=== PATIENT | male | born 1980 | race Caucasian/White ===

== ENCOUNTER 2017-03-27 11:47 | Inpatient (IN) | payer OTHER ==
[2017-03-27 12:37] VITALS: BMI 31.8
[2017-03-27] MEDS ORDERED: guaiFENesin/D-METHORPHAN HB 10 ML UNIT-DOSE CUPS PO PRN (14:54)
[2017-03-27] MEDS ORDERED: MAGNESIUM CITRATE 300 ML BOTTLE PO PRN (14:54)
[2017-03-27] MEDS ORDERED: diphenhydrAMINE HCL 50 MG CAPSULE PO PRN (14:54)
[2017-03-27] MEDS ORDERED: P-EPHED 60MG/TRIPROLIDI 2.5MG TABLET PO PRN (14:54)
[2017-03-27] MEDS ORDERED: NICOTINE POLACRILEX 2 MG GUM BC PRN (14:54)
[2017-03-27] MEDS ORDERED: MAGNESIUM HYDROX 2400MG/30ML ORAL SUSPENSION 30 ML CUP PO PRN (14:54)
[2017-03-27] MEDS ORDERED: MENTHOL/PHENOL 1 EACH UD MM PRN (14:54)
[2017-03-27] MEDS ORDERED: hydrOXYzine PAMOATE 50 MG CAPSULE (FP) PO PRN (14:54)
[2017-03-27] MEDS ORDERED: MAG HYDROX/AL HYDROX/SIMETH 30 ML UNIT-DOSE CUP PO PRN (14:54)
[2017-03-27] MEDS ORDERED: IBUPROFEN 400 MG TABLET (FP) PO PRN (14:54)
[2017-03-27] MEDS ORDERED: LOPERAMIDE HCL 2 MG CAPSULE PO PRN (14:54)
[2017-03-27] MEDS ORDERED: ACETAMINOPHEN 325 MG TABLET (FP) PO PRN (14:54)
[2017-03-27] MEDS ORDERED: diazePAM 5 MG TABLET PO ONE (14:54)
--- NOTE | 2017-03-27 15:04 | HP ---
CIWA Score - CIWA Score Nausea/Vomitin-Mild Nausea/No Vomiting Muscle Tremors: 4-Moderate,w/Arms Extend Anxiety: 4-Mod. Anxious/Guarded Agitation: 3 Paroxysmal Sweats: 3 Orientation: 0-Oriented Tacttile Disturbances: 1-Very Mild Itch/Numbness Auditory Disturbances: 0-None Visual Disturbances: 0-None Headache: 0-None Present CIWA-Ar Total Score: 16 Admission ROS BHS - HPI Chief Complaint: Withdrawal sx. Allergies/Adverse Reactions: Allergies Allergy/AdvReac Type Severity Reaction Status Date / Time No Known Allergies Allergy Verified 03/27/17 15:04 History of Present Illness: 36 y/o man with a long hx. of alprazolam dependence is admitted for detox. Pt. has been in previous detox, denies significant sobriety. Exam Limitations: No Limitations - Ebola screening Have you traveled outside of the country in the last 21 days: No Have you had contact with anyone from an Ebola affected area: No Have you been sick,other than usual withdrawal symptoms: No Do you have a fever: No - Review of Systems Constitutional: Diaphoresis EENT: reports: No Symptoms Reported Respiratory: reports: Shortness of Breath (asthma), Wheezing (asthma) Cardiac: reports: No Symptoms Reported GI: reports: Nausea, Abdominal cramping : reports: No Symptoms Reported Musculoskeletal: reports: No Symptoms Reported Integumentary: reports: Sweating Neuro: reports: Numbness, Tingling, Tremors Endocrine: reports: No Symptoms Reported Hematology: reports: No Symptoms Reported Psychiatric: reports: No Sypmtoms Reported Other Systems: Reviewed and Negative Patient History - Patient Medical History Hx Anemia: No Hx Asthma: Yes Hx Chronic Obstructive Pulmonary Disease (COPD): No Hx Cancer: No Hx Cardiac Disorders: No Hx Congestive Heart Failure: No Hx Hypertension: No Hx Hypercholesterolemia: No Hx Pacemaker: No HX Cerebrovascular Accident: No Hx Seizures: No Hx Dementia: No Hx Diabetes: No Hx Gastrointestinal Disorders: No Hx Liver Disease: No Hx Genitourinary Disorders: No Hx Sexually Transmitted Disorders: No Hx Renal Disease (ESRD): No Hx Thyroid Disease: No Hx Human Immunodeficiency Virus (HIV): Yes (POSITIVE SINCE 2003 CD4+ < 200 in the past) Hx Hepatitis C: Yes (STARTED [place] BUT DID NOT FINISH) Hx Depression: Yes Hx Suicide Attempt: Yes (pill overdose at age 14) Hx Bipolar Disorder: No Hx Schizophrenia: No Other Medical History: Tinnitus - Patient Surgical History Past Surgical History: No Hx Neurologic Surgery: No Hx Cataract Extraction: No Hx Cardiac Surgery: No Hx Lung Surgery: No Hx Breast Surgery: No Hx Breast Biopsy: No Hx Abdominal Surgery: No Hx Appendectomy: No Hx Cholecystectomy: No Hx Genitourinary Surgery: No Hx Section: No Hx Orthopedic Surgery: No Anesthesia Reaction: No - PPD History Previous Implant?: Yes Documented Results: Positive w/o proof Date: 05/30/13 Results: 0 mm PPD to be Administered?: Yes - Reproductive History Patient is a Female of Child Bearing Age (11 -55 yrs old): No - Smoking Cessation Smoking history: Current every day smoker Have you smoked in the past 12 months: Yes Aproximately how many cigarettes per day: 8 Cigars Per Day: 0 Hx Chewing Tobacco Use: No Initiated information on smoking cessation: Yes 'Breaking Loose' booklet given: 03/27/17 - Substance & Tx. History Hx Alcohol Use: No Hx Substance Use: Yes Substance Use Type: Tranquilizers Hx Substance Use Treatment: Yes (Detox & OTP) - Substances Abused Alprazolam (Xanax) Route: Oral Frequency: Daily Amount used: 8-10mg Age of first use: 14 Date of Last Use: 03/27/17 Cocaine Route: Injection Frequency: Daily Amount used: 6-10 bags Age of first use: 10 Date of Last Use: 03/26/17 Heroin Route: Injection Frequency: Daily Amount used: 10 bags Age of first use: 11 Date of Last Use: 03/27/17 Family Disease History - Family Disease History Family Disease History: Diabetes: Grandparent, CA: Mother (leucemia) Admission Physical Exam S - Vital Signs Vital Signs: Vital Signs - 24 hr 03/27/17 12:34 Temperature 96.4 F L Pulse Rate 70 Respiratory 20 Rate Blood Pressure 101/63 - Physical General Appearance: Yes: Tremorous, Irritable, Sweating, Anxious HEENTM: Yes: Within Normal Limits Respiratory: Yes: Chest Non-Tender, Lungs Clear, Normal Breath Sounds Breast: Yes: Breast Exam Deferred Cardiology: Yes: Regular Rate, S1, S2 Abdominal: Yes: Normal Bowel Sounds, Non Tender, Soft Genitourinary: Yes: Within Normal Limits Back: Yes: Within Normal Limits Musculoskeletal: Yes: Within Normal Limits Extremities: Yes: Tremors Neurological: Yes: Fully Oriented, Alert Integumentary: Yes: Diaphoresis Lymphatic: Yes: Within Normal Limits - Diagnostic (1) Acquired immune deficiency syndrome (AIDS) Current Visit: Yes Status: Active (2) Cocaine dependence Current Visit: Yes Status: Active (3) Hepatitis C carrier Current Visit: Yes Status: Active (4) Sedative, hypnotic or anxiolytic dependence with withdrawal, uncomplicated Current Visit: Yes Status: Acute (5) Opioid dependence on agonist therapy Current Visit: Yes Status: Acute (6) Tinnitus of both ears Current Visit: Yes Status: Acute Cleared for Admission [facility] - Detox or Rehab [facility] Level of Care: Medically Managed Detox Regimen/Protocol: Valium [facility] Breath Alcohol Content Breath Alcohol Content: 0 Urine Drug Screen - Results Drug Screen Negative: No Urine Drug Screen Results: LOS-Cocaine, OPI-Opiates, BZO-Benzodiazepines, MTD- Methadone
[2017-03-27] MEDS ORDERED: ALBUTEROL SO4 6.7 GM HFA INHALER IH PRN (15:15)
[2017-03-27] MEDS: NICOTINE 14 MG/24 HOURS TOPICAL PATCH TD SCH (15:42)
[2017-03-27 18:15] LABS: URINE APPEARANCE CLEAR; URINE BILIRUBIN NEGATIVE (NEGATIVE); URINE BLOOD NEGATIVE (NEGATIVE); URINE COLOR AMBER; URINE GLUCOSE (UA) NEGATIVE (NEGATIVE); URINE KETONE NEGATIVE (NEGATIVE); URINE LEUK ESTERASE NEGATIVE (NEGATIVE); URINE NITRITE NEGATIVE (NEGATIVE); URINE PROTEIN NEGATIVE (NEGATIVE); URINE UROBILINOGEN NEGATIVE mg/dL (0.2-1.0)
[2017-03-27] MEDS: diazePAM 5 MG TABLET PO PRN (19:54)
[2017-03-27] MEDS: RANITIDINE HCL 150 MG TABLET (FP) PO SCH (22:07)
[2017-03-27] MEDS: THIAMINE HCL 100 MG TABLET (FP) PO SCH (22:07)
[2017-03-27] MEDS: BUDESONIDE/FORMETEROL FUMARATE 160/4.5 mcg INHALER IH SCH (22:07)
[2017-03-27] MEDS: diazePAM 5 MG TABLET PO SCH (22:07)
[2017-03-28] MEDS: diazePAM 5 MG TABLET PO SCH ×3 (05:45→22:12)
--- NOTE | 2017-03-28 08:48 | CONSULT ---
[facility] Psychiatric Consult - Data Date of interview: 03/28/17 Admission source: [facility] Identifying data: This is 36 years old male with no psychiatric hospitalization history intoxicated with: Opioids, Cocaine and Xanax Substance Abuse History: - Smoking Cessation. Smoking history: Current every day smoker. Have you smoked in the past 12 months: Yes. Aproximately how many cigarettes per day: 8. Cigars Per Day: 0. Hx Chewing Tobacco Use: No. Initiated information on smoking cessation: Yes. 'Breaking Loose' booklet given : 03/27/17. - Substance & Tx. History. Hx Alcohol Use: No. Hx Substance Use: Yes. Substance Use Type: Tranquilizers. Hx Substance Use Treatment: Yes ( Detox & OTP). - Substances Abused. Alprazolam (Xanax). Route: Oral. Frequency: Daily. Amount used: 8-10mg. Age of first use: 14. Date of Last Use : 03/27/17. Cocaine. Route: Injection. Frequency: Daily. Amount used: 6- 10 bags. Age of first use: 10. Date of Last Use: 03/26/17. Heroin. Route : Injection. Frequency: Daily. Amount used: 10 bags. Age of first use: 11. Date of Last Use: 03/27/17 Medical History: AIDS, HepC+, Sytncope history Psychiatric History: Patient reports history of anxietyn and depression, reportas taqking priormto admission: Seroquel 25mg p[o qhs. Celexa 20mg poqd Physical/Sexual Abuse/Trauma History: Denies Additional Comment: Seroquel 25mg p[o qhs. Celexa 20mg poqd Mental Status Exam - Mental Status Exam Alert and Oriented to: Person Cognitive Function: Fair Patient Appearance: Unkempt Mood: Sad Affect: Mood Congruent Patient Behavior: Cooperative Speech Pattern: Delayed Voice Loudness: Mildly Loud Thought Process: Circumstantial Thought Disorder: Being Controlled Hallucinations: Denies Suicidal Ideation: Denies Homicidal Ideation: Denies Insight/Judgement: Fair Sleep: Difficulty falling asleep Appetite: Fair Muscle strength/Tone: Normal Gait/Station: Normal Additional Comments: Seroquel 25mg p[o qhs. Celexa 20mg poqd Psychiatric Findings - Problem List ([place] 1, 2,3) (1) Cocaine dependence Current Visit: Yes Status: Chronic (2) Opioid dependence Current Visit: Yes Status: Chronic (3) Opioid dependence on agonist therapy Current Visit: Yes Status: Chronic (4) Sedative dependence Current Visit: Yes Status: Chronic (5) Sedative, hypnotic or anxiolytic dependence with withdrawal, uncomplicated Current Visit: Yes Status: Chronic (6) Anxiety disorder Current Visit: No Status: Chronic - Initial Treatment Plan Initial Treatment Plan: Seroquel 25mg p[o qhs. Celexa 20mg poqd
[2017-03-28] MEDS ORDERED: METHADONE HCL 10 MG TABLET PO ONE (09:45)
[2017-03-28 10:12] LABS: MCH 31.7 pg (25.7-33.7); MCHC 33.9 g/dl (32.0-35.9); MEAN CELL VOLUME 93.3 fl (80-96); PLATELET COUNT 124 K/MM3 (134-434); RDW 13.9 % (11.9-15.9); WHITE BLOOD COUNT 4.8 K/mm3 (4.0-10.0)
[2017-03-28] MEDS: CITALOPRAM HYDROBROMIDE 20 MG TABLET (FP) PO SCH (10:12)
[2017-03-28] MEDS: RANITIDINE HCL 150 MG TABLET (FP) PO SCH ×2 (10:12→22:12)
[2017-03-28] MEDS: diazePAM 5 MG TABLET PO PRN ×2 (10:12→17:36)
[2017-03-28] MEDS: PRENATAL VITAMINS W/ FOLIC ACID TABLET (FP) PO SCH (10:12)
[2017-03-28] MEDS: NICOTINE 14 MG/24 HOURS TOPICAL PATCH TD SCH (10:13)
[2017-03-28] MEDS: BUDESONIDE/FORMETEROL FUMARATE 160/4.5 mcg INHALER IH SCH ×2 (10:13→22:12)
--- NOTE | 2017-03-28 10:39 | PN ---
[facility] CIWA - CIWA Score Nausea/Vomitin-No Nausea/No Vomiting Muscle Tremors: 4-Moderate,w/Arms Extend Anxiety: 3 Agitation: 4-Moderately Restless Paroxysmal Sweats: 3 Orientation: 0-Oriented Tacttile Disturbances: 0-None Auditory Disturbances: 0-None Visual Disturbances: 0-None Headache: 0-None Present CIWA-Ar Total Score: 14 S COWS - Scale Resting Pulse: 0= [place] 80 or Below Sweatin= Chills/Flushing Restless Observation: 1= Difficult to Sit Still Pupil Size: 0= Normal to Room Light Bone or Joint Aches: 2= Severe Diffuse Aches Runny Nose/ Eye Tearin= Nasal Congestion GI Upset > 30mins: 0= None Tremor Observation of Outstretched Hands: 2= Slight Tremor Visible Yawning Observation: 2= >3x During Session Anxiety or Irritability: 2=Irritable/Anxious Goose Flesh Skin: 0=Smooth Skin COWS Score: 11 S Progress Note (SOAP) Subjective: I am still hungry sweats shakes interrupted sleep agitation anxiety Objective: 03/28/17 10:39 Vital Signs Temperature 95.9 F L 03/28/17 09:54 Pulse Rate 63 03/28/17 09:54 Respiratory Rate 16 03/28/17 09:54 Blood Pressure 115/74 03/28/17 09:54 O2 Sat by Pulse Oximetry (%) Laboratory Tests 03/27/17 03/28/17 03/28/17 15:53 07:00 07:00 WBC 4.8 RBC 4.29 Hgb 13.6 D Hct 40.0 MCV 93.3 MCH 31.7 MCHC 33.9 RDW 13.9 Plt Count 124 L MPV 10.0 Sodium 142 Potassium 3.9 Chloride 107 D Urine Color Gale Urine Appearance Clear Urine pH 5.0 Ur Specific [place] >= 1.030 H Urine Protein Negative Urine Glucose (UA) Negative Urine Ketones Negative Urine Blood Negative Urine Nitrite Negative Urine Bilirubin Negative Urine Urobilinogen Negative Ur Leukocyte Esterase Negative labs pending awake/alert ambulating no acute distress Assessment: 03/28/17 10:39 withdrawal sx Plan: continue detox increase fluids
[2017-03-28 10:45] LABS: ALBUMIN 3.3 g/dl (3.4-5.0); ALK PHOS 90 U/L (45-117); ANION GAP 10 (8-16); BILIRUBIN,TOTAL 0.3 mg/dL (0.2-1.0); CALCIUM 8.8 mg/dL (8.5-10.1); CO2 25 mmol/L (21-32); CREATININE 0.7 mg/dL (0.7-1.3); GLUCOSE,RANDOM 129 mg/dL (74-106); SGOT/AST 95 U/L (15-37); SGPT/ALT 223 U/L (12-78); TOT PROT 6.3 g/dl (6.4-8.2)
[2017-03-28] MEDS: QUEtiapine FUMARATE 25 MG TABLET (FP) PO SCH (22:12)
[2017-03-28] MEDS: THIAMINE HCL 100 MG TABLET (FP) PO SCH (22:12)
--- NOTE | 2017-03-28 23:18 | EKG ---
Test Reason : Blood Pressure : / mmHG Vent. Rate : 053 BPM Atrial Rate : 053 BPM P-R Int : 152 ms QRS Dur : 102 ms QT Int : 440 ms P-R-T Axes : 060 056 059 degrees QTc Int : 412 ms SINUS BRADYCARDIA POSSIBLE LEFT ATRIAL ENLARGEMENT BORDERLINE ECG NO PREVIOUS ECGS AVAILABLE Confirmed by KOKO NÚÑEZ, ONEIL ([id number]) on 03/28/2017 11:17:37 PM Referred By: Confirmed By:ONEIL SUTHERLAND MD
[2017-03-29] MEDS: diazePAM 5 MG TABLET PO PRN (05:40)
[2017-03-29] MEDS: METHADONE HCL 10 MG TABLET PO SCH (05:44)
[2017-03-29] MEDS ORDERED: METHADONE HCL 40 MG DISPERSABLE TABLET PO SCH (06:00)
[2017-03-29] MEDS: CITALOPRAM HYDROBROMIDE 20 MG TABLET (FP) PO SCH (10:09)
[2017-03-29] MEDS: PRENATAL VITAMINS W/ FOLIC ACID TABLET (FP) PO SCH (10:09)
[2017-03-29] MEDS: NICOTINE 14 MG/24 HOURS TOPICAL PATCH TD SCH (10:10)
[2017-03-29] MEDS: diazePAM 5 MG TABLET PO SCH ×2 (10:10→22:17)
[2017-03-29] MEDS: BUDESONIDE/FORMETEROL FUMARATE 160/4.5 mcg INHALER IH SCH ×2 (10:10→22:42)
[2017-03-29] MEDS: RANITIDINE HCL 150 MG TABLET (FP) PO SCH ×2 (10:10→22:17)
--- NOTE | 2017-03-29 11:19 | PN ---
S CIWA - CIWA Score Nausea/Vomitin Muscle Tremors: 4-Moderate,w/Arms Extend Anxiety: 4-Mod. Anxious/Guarded Agitation: 4-Moderately Restless Paroxysmal Sweats: 3 Orientation: 0-Oriented Tacttile Disturbances: 1-Very Mild Itch/Numbness Auditory Disturbances: 0-None Visual Disturbances: 0-None Headache: 1-Very Mild CIWA-Ar Total Score: 20 BHS Progress Note (SOAP) Subjective: nausea, sweats, interrupted sleep, anxiety, tremors Objective: 03/29/17 11:18 Vital Signs - 8 hr 03/29/17 03/29/17 03/29/17 03:30 06:51 10:31 Temperature 97.7 F 98.2 F Pulse Rate 60 70 Respiratory 18 16 18 Rate Blood Pressure 112/71 110/72 Laboratory Tests 03/27/17 03/28/17 03/28/17 15:53 07:00 07:00 WBC 4.8 RBC 4.29 Hgb 13.6 D Hct 40.0 MCV 93.3 MCH 31.7 MCHC 33.9 RDW 13.9 Plt Count 124 L MPV 10.0 Sodium 142 Potassium 3.9 Chloride 107 D Carbon Dioxide 25 Anion Gap 10 BUN 13 Creatinine 0.7 D Creat Clearance w eGFR > 60 Random Glucose 129 H D Calcium 8.8 Total Bilirubin 0.3 D AST 95 H D ALT 223 H D Alkaline Phosphatase 90 Total Protein 6.3 L D Albumin 3.3 L Urine Color Gale Urine Appearance Clear Urine pH 5.0 Ur Specific [place] >= 1.030 H Urine Protein Negative Urine Glucose (UA) Negative Urine Ketones Negative Urine Blood Negative Urine Nitrite Negative Urine Bilirubin Negative Urine Urobilinogen Negative Ur Leukocyte Esterase Negative RPR Titer 03/28/17 07:00 WBC RBC Hgb Hct MCV MCH MCHC RDW Plt Count MPV Sodium Potassium Chloride Carbon Dioxide Anion Gap BUN Creatinine Creat Clearance w eGFR Random Glucose Calcium Total Bilirubin AST ALT Alkaline Phosphatase Total Protein Albumin Urine Color Urine Appearance Urine pH Ur Specific [place] Urine Protein Urine Glucose (UA) Urine Ketones Urine Blood Urine Nitrite Urine Bilirubin Urine Urobilinogen Ur Leukocyte Esterase RPR Titer Nonreactive D Assessment: 03/29/17 11:19 withdrawal sx Plan: cont detox
[2017-03-29] MEDS: THIAMINE HCL 100 MG TABLET (FP) PO SCH (22:16)
[2017-03-29] MEDS: QUEtiapine FUMARATE 25 MG TABLET (FP) PO SCH (22:16)
[2017-03-30] MEDS: METHADONE HCL 10 MG TABLET PO SCH (05:38)
[2017-03-30] MEDS: diazePAM 5 MG TABLET PO SCH ×2 (10:06→22:15)
[2017-03-30] MEDS: RANITIDINE HCL 150 MG TABLET (FP) PO SCH ×2 (10:07→22:15)
[2017-03-30] MEDS: BUDESONIDE/FORMETEROL FUMARATE 160/4.5 mcg INHALER IH SCH ×2 (10:07→22:15)
[2017-03-30] MEDS: CITALOPRAM HYDROBROMIDE 20 MG TABLET (FP) PO SCH (10:07)
[2017-03-30] MEDS: PRENATAL VITAMINS W/ FOLIC ACID TABLET (FP) PO SCH (10:07)
[2017-03-30] MEDS: NICOTINE 14 MG/24 HOURS TOPICAL PATCH TD SCH (10:08)
--- NOTE | 2017-03-30 11:39 | PN ---
BHS Progress Note (SOAP) Subjective: feeling better anxiety Objective: 03/30/17 11:38 Vital Signs Temperature 97.5 F L 03/30/17 06:32 Pulse Rate 56 L 03/30/17 06:32 Respiratory Rate 16 03/30/17 06:32 Blood Pressure 106/70 03/30/17 06:32 O2 Sat by Pulse Oximetry (%) awake/alert ambulating no acute distress Assessment: 03/30/17 11:39 withdrawal sx Plan: continue detox increase fluids
[2017-03-30] MEDS: QUEtiapine FUMARATE 25 MG TABLET (FP) PO SCH (22:15)
[2017-03-30] MEDS: THIAMINE HCL 100 MG TABLET (FP) PO SCH (22:15)
[2017-03-31] MEDS: METHADONE HCL 10 MG TABLET PO SCH (05:59)
[2017-03-31 06:59] VITALS: TEMP 97.9
--- NOTE | 2017-03-31 08:49 | DS ---
[facility] Detox Discharge Summary Admission Date: 03/27/17 Discharge Date: 03/31/17 - History Present History: Cocaine Dependence, Opioid Dependence, Sedative Dependence - Physical Exam Results Vital Signs: Vital Signs Temperature 97.9 F 03/31/17 06:59 Pulse Rate 60 03/31/17 06:59 Respiratory Rate 16 03/31/17 06:59 Blood Pressure 109/68 03/31/17 06:59 O2 Sat by Pulse Oximetry (%) - Treatment Hospital Course: Detox Protocol Followed, Detoxed Safely, Responded well, Discharged Condition Good, Rehab Referral Accepted - Medication Discharge Medications: Ambulatory Orders Citalopram Hydrobromide [Celexa -] 20 mg PO DAILY #30 tablet 08/24/13 Quetiapine Fumarate [Seroquel -] 25 mg PO HS #30 tablet 08/24/13 Albuterol Sulfate Inhaler - [Ventolin HFA Inhaler -] 2 inh IH Q4H PRN #1 inh 04/30 Ranitidine [Zantac -] 150 mg PO BID #60 tablet 08/27/13 Abacavir/Dolutegravir/Lamivudi [Triumeq Tablet] 1 each PO DAILY 03/27/17 Citalopram Hydrobromide [Celexa -] 20 mg PO DAILY #30 tablet 03/28/17 Quetiapine Fumarate [Seroquel -] 25 mg PO HS #30 tablet 03/28/17 - Diagnosis (1) Acquired immune deficiency syndrome (AIDS) Current Visit: Yes Status: Chronic (2) Cocaine dependence Current Visit: Yes Status: Chronic (3) Hepatitis C carrier Current Visit: Yes Status: Chronic (4) Opioid dependence on agonist therapy Current Visit: Yes Status: Chronic (5) Sedative, hypnotic or anxiolytic dependence with withdrawal, uncomplicated Current Visit: Yes Status: Chronic (6) Anxiety disorder Current Visit: No Status: Chronic (7) Asthma Current Visit: Yes Status: Chronic (8) Opioid dependence Current Visit: Yes Status: Chronic (9) depression Current Visit: No Status: Active (10) mood disorder nos Current Visit: No Status: Active (11) syncope drug related Current Visit: No Status: Active - AMA Did Patient Leave Against Medical Advice: No
[2017-03-31] MEDS: RANITIDINE HCL 150 MG TABLET (FP) PO SCH (09:12)
[2017-03-31] MEDS: CITALOPRAM HYDROBROMIDE 20 MG TABLET (FP) PO SCH (09:12)
[2017-03-31] MEDS: PRENATAL VITAMINS W/ FOLIC ACID TABLET (FP) PO SCH (09:12)
[2017-03-31] MEDS: BUDESONIDE/FORMETEROL FUMARATE 160/4.5 mcg INHALER IH SCH (09:12)
[2017-03-31] MEDS: NICOTINE 14 MG/24 HOURS TOPICAL PATCH TD SCH (09:12)
[2017-03-31] MEDS ORDERED: diazePAM 5 MG TABLET PO SCH (10:00)
[2017-03-31 10:03] VITALS: BP 113/61; PULSE 89
== END 2017-03-31 11:12 | disposition home or self-care (01) | DRG 773 ==
LOC: YASAS 11:47 → Y6N 14:46
PROVIDERS: ADMIT Internal Medicine; ATTEND Internal Medicine Addiction Medicine
PROC: HZ2ZZZZ Detoxification Services for Substance Abuse Treatment (ICD-10-PCS; principal; 2017-03-27)
DX: F11.20 Opioid dependence, uncomplicated (principal); F13.230 Sedative, hypnotic or anxiolytic dependence with withdrawal, uncomplicated; F14.20 Cocaine dependence, uncomplicated; F41.9 Anxiety disorder, unspecified; F39 Unspecified mood [affective] disorder; F32.9 Major depressive disorder, single episode, unspecified; R55 Syncope and collapse; J45.909 Unspecified asthma, uncomplicated; B20 Human immunodeficiency virus [HIV] disease; Z91.5 Personal history of self-harm
CPT/HCPCS: 36415; 80053; 81003; 85027; 86593; 93005; 93010

== ENCOUNTER 2017-12-27 18:23 | Inpatient (IN) | payer OTHER ==
[2017-12-27 19:28] VITALS: BMI 33.1
--- NOTE | 2017-12-27 20:23 | HP ---
CIWA Score - CIWA Score Nausea/Vomitin-No Nausea/No Vomiting Muscle Tremors: 1-None Visible, but [place]in Anxiety: 4-Mod. Anxious/Guarded Agitation: 4-Moderately Restless Paroxysmal Sweats: 2 Orientation: 1-Uncertain about Date Tacttile Disturbances: 2-Mild Itch/Numbness/Burn Auditory Disturbances: 0-None Visual Disturbances: 0-None Headache: 3-Moderate CIWA-Ar Total Score: 17 Admission ROS BHS - HPI Chief Complaint: seeking detox for benzo dependence Allergies/Adverse Reactions: Allergies Allergy/AdvReac Type Severity Reaction Status Date / Time No Known Allergies Allergy Verified 03/27/17 15:04 History of Present Illness: 37 Y.O. MALE WITH LONG HX/O POLYSUBSTANCE ABUSE HERE FOR DETOX FROM [facility]. CLIENT STATES HE IS ON MMTP, MEDICATED WITH METHADONE 30 MG TODAY FROM [employer]. HE IS KNOWN TO THIS PROGRAM. LAST HERE 2016. REPORTS LONGEST CLEAN TIME 1 YEAR. HX/O OF DRUG OVERDOSE X 2. DENIES SEIZURES, SI/HI AND A/V HALLUCINATIONS. PMHX: ASTHMA, HIV, HEPC (TREATED). PSYCH: DENIES Exam Limitations: No Limitations - Ebola screening Have you traveled outside of the country in the last 21 days: No Have you had contact with anyone from an Ebola affected area: No Have you been sick,other than usual withdrawal symptoms: No Do you have a fever: No - Review of Systems Constitutional: Loss of Appetite, Malaise, Night Sweats EENT: reports: No Symptoms Reported Respiratory: reports: Shortness of Breath Cardiac: reports: No Symptoms Reported GI: reports: Constipated : reports: No Symptoms Reported Musculoskeletal: reports: Back Pain, Joint Pain Integumentary: reports: No Symptoms Reported Neuro: reports: No Symptoms reported Endocrine: reports: No Symptoms Reported Hematology: reports: No Symptoms Reported Psychiatric: reports: Anxious Other Systems: Reviewed and Negative Patient History - Patient Medical History Hx Anemia: No Hx Asthma: Yes Hx Chronic Obstructive Pulmonary Disease (COPD): No Hx Cancer: No Hx Cardiac Disorders: No Hx Congestive Heart Failure: No Hx Hypertension: No Hx Hypercholesterolemia: No Hx Pacemaker: No HX Cerebrovascular Accident: No Hx Seizures: No Hx Dementia: No Hx Diabetes: No Hx Gastrointestinal Disorders: No Hx Liver Disease: No Hx Genitourinary Disorders: No Hx Sexually Transmitted Disorders: No Hx Renal Disease (ESRD): No Hx Thyroid Disease: No Hx Human Immunodeficiency Virus (HIV): Yes (POSITIVE SINCE 2003 CD4+ < 200 in the past) Hx Hepatitis C: Yes (STARTED [place] BUT DID NOT FINISH) Hx Depression: Yes Hx Suicide Attempt: Yes (pill overdose at age 14) Hx Bipolar Disorder: No Hx Schizophrenia: No Other Medical History: ANXIETY - Patient Surgical History Past Surgical History: No Hx Neurologic Surgery: No Hx Cataract Extraction: No Hx Cardiac Surgery: No Hx Lung Surgery: No Hx Breast Surgery: No Hx Breast Biopsy: No Hx Abdominal Surgery: No Hx Appendectomy: No Hx Cholecystectomy: No Hx Genitourinary Surgery: No Hx Section: No Hx Orthopedic Surgery: No Anesthesia Reaction: No - PPD History Previous Implant?: Yes Documented Results: Negative w/proof Implanted On Prior [facility] Admission?: Yes Date: 05/30/13 Results: 0 mm PPD to be Administered?: Yes - Smoking Cessation Smoking history: Current every day smoker Have you smoked in the past 12 months: Yes Aproximately how many cigarettes per day: 8 Cigars Per Day: 0 Hx Chewing Tobacco Use: No Initiated information on smoking cessation: Yes 'Breaking Loose' booklet given: 12/27/17 - Substance & Tx. History Hx Alcohol Use: No Hx Substance Use: Yes Substance Use Type: Cocaine, Heroin, Tranquilizers (XANAX) Hx Substance Use Treatment: Yes ([facility]) - Substances Abused XANAX Route: Oral Frequency: Daily Amount used: 10MG Age of first use: 14 Date of Last Use: 12/27/17 HEROIN Route: Injection Frequency: Daily Amount used: 3 BAGS Age of first use: 11 Date of Last Use: 12/27/17 COCAINE Route: Oral Frequency: Daily Amount used: 2 BAGS Age of first use: 9 Date of Last Use: 12/27/17 Family Disease History - Family Disease History Family Disease History: Diabetes: Grandparent, [place]: Mother (leucemia) Admission Physical Exam S - Vital Signs Vital Signs: Vital Signs - 24 hr 12/27/17 19:26 Temperature 97.6 F Pulse Rate 68 Respiratory 18 Rate Blood Pressure 112/75 - Physical General Appearance: Yes: Appropriately Dressed, Mild Distress, Tremorous (FELT) , Anxious HEENTM: Yes: EOMI, Normocephalic, Normal Voice, SHELBY, Pharynx Normal, Other ( PARTIAL DENTURES) Respiratory: Yes: Chest Non-Tender, Lungs Clear, Normal Breath Sounds, No Respiratory Distress, No Accessory Muscle Use Neck: Yes: No masses,lesions,Nodules, Supple, Trachea in good position Breast: Yes: Breast Exam Deferred Cardiology: Yes: Regular Rhythm, Regular Rate, S1, S2 Abdominal: Yes: Normal Bowel Sounds, Non Tender, Soft, Protuberent Genitourinary: Yes: Within Normal Limits Back: Yes: Normal Inspection Musculoskeletal: Yes: full range of Motion, Gait Steady Extremities: Yes: Normal Capillary Refill, Normal Range of Motion, Non-Tender, Tremors (FELT) Neurological: Yes: inbound call center representative II-XII NML intact, Fully Oriented, Alert, Motor Strength 5/5 Integumentary: Yes: Normal Color, Dry, Warm Lymphatic: Yes: Within Normal Limits - Diagnostic (1) mood disorder nos Current Visit: Yes Status: Suspected (2) Acquired immune deficiency syndrome (AIDS) Current Visit: Yes Status: Chronic (3) Asthma Current Visit: Yes Status: Chronic (4) Cocaine dependence Current Visit: Yes Status: Chronic (5) Hepatitis C carrier Current Visit: Yes Status: Chronic (6) Opioid dependence on agonist therapy Current Visit: Yes Status: Chronic (7) Sedative, hypnotic or anxiolytic dependence with withdrawal, uncomplicated Current Visit: Yes Status: Acute (8) Nicotine dependence Current Visit: Yes Status: Chronic Qualifiers: Nicotine product type: cigarettes Substance use status: uncomplicated Qualified Code(s): F17.210 - Nicotine dependence, cigarettes, uncomplicated Cleared for Admission [facility] - Detox or Rehab [facility] Level of Care: Medically Managed Detox Regimen/Protocol: Valium Claeared for Rehab Admission: No [facility] Breath Alcohol Content Breath Alcohol Content: 0 Urine Drug Screen - Results Drug Screen Negative: No Urine Drug Screen Results: LOS-Cocaine, OPI-Opiates, BZO-Benzodiazepines, MTD- Methadone
[2017-12-27] MEDS ORDERED: hydrOXYzine PAMOATE 50 MG CAPSULE (FP) PO PRN (20:28)
[2017-12-27] MEDS ORDERED: diazePAM 5 MG TABLET PO ONE (20:28)
[2017-12-27] MEDS ORDERED: MENTHOL/PHENOL 1 EACH UD MM PRN (20:28)
[2017-12-27] MEDS ORDERED: NICOTINE POLACRILEX 2 MG GUM BUC PRN (20:28)
[2017-12-27] MEDS ORDERED: ACETAMINOPHEN 325 MG TABLET (FP) PO PRN (20:28)
[2017-12-27] MEDS ORDERED: MAGNESIUM CITRATE 300 ML BOTTLE PO PRN (20:28)
[2017-12-27] MEDS ORDERED: LOPERAMIDE HCL 2 MG CAPSULE PO PRN (20:28)
[2017-12-27] MEDS ORDERED: IBUPROFEN 400 MG TABLET (FP) PO PRN (20:28)
[2017-12-27] MEDS ORDERED: P-EPHED 60MG/TRIPROLIDI 2.5MG TABLET PO PRN (20:28)
[2017-12-27] MEDS ORDERED: MAGNESIUM HYDROX 2400MG/30ML ORAL SUSPENSION 30 ML CUP PO PRN (20:28)
[2017-12-27] MEDS ORDERED: guaiFENesin/D-METHORPHAN HB 10 ML UNIT-DOSE CUPS PO PRN (20:28)
[2017-12-27] MEDS ORDERED: MAG HYDROX/AL HYDROX/SIMETH 30 ML UNIT-DOSE CUP PO PRN (20:28)
[2017-12-27] MEDS ORDERED: ALBUTEROL SO4 18 GM HFA INHALER IH PRN (21:26)
[2017-12-28] MEDS: THIAMINE HCL 100 MG TABLET (FP) PO SCH ×2 (02:39→22:18)
[2017-12-28] MEDS: diazePAM 5 MG TABLET PO SCH ×4 (02:39→22:18)
--- NOTE | 2017-12-28 09:38 | EKG ---
Test Reason : Blood Pressure : / mmHG Vent. Rate : 059 BPM Atrial Rate : 059 BPM P-R Int : 152 ms QRS Dur : 096 ms QT Int : 434 ms P-R-T Axes : 056 054 065 degrees QTc Int : 429 ms SINUS BRADYCARDIA POSSIBLE LEFT ATRIAL ENLARGEMENT BORDERLINE ECG WHEN COMPARED WITH ECG OF 27-MAR-2017 14:47, NO SIGNIFICANT CHANGE WAS FOUND Confirmed by HANH NÚÑEZ, KRISTEL ([id number]) on 12/28/2017 9:38:17 AM Referred By: Confirmed By:KRISTEL SCHAFER MD
[2017-12-28 09:43] LABS: URINE APPEARANCE CLEAR; URINE BILIRUBIN NEGATIVE (<2.0 mg/dL); URINE COLOR YELLOW; URINE GLUCOSE (UA) NEGATIVE (NEGATIVE); URINE KETONE NEGATIVE (NEGATIVE); URINE LEUK ESTERASE NEGATIVE (NEGATIVE); URINE NITRITE NEGATIVE (NEGATIVE); URINE PROTEIN NEGATIVE (NEGATIVE); URINE UROBILINOGEN 4.0 E.U/dl mg/dL (0.2-1.0)
--- NOTE | 2017-12-28 09:47 | PN ---
S CIWA - CIWA Score Nausea/Vomitin Muscle Tremors: 2 Anxiety: 2 Agitation: 2 Paroxysmal Sweats: 3 Orientation: 0-Oriented Tacttile Disturbances: 1-Very Mild Itch/Numbness Auditory Disturbances: 0-None Visual Disturbances: 0-None Headache: 0-None Present CIWA-Ar Total Score: 12 S Progress Note (SOAP) Subjective: feeling better but sweats , aches Objective: 12/28/17 09:48 Vital Signs Temperature 97.6 F 12/28/17 09:22 Pulse Rate 59 L 12/28/17 09:22 Respiratory Rate 18 12/28/17 09:22 Blood Pressure 116/76 12/28/17 09:22 O2 Sat by Pulse Oximetry (%) Vital Signs Temperature 97.6 F 12/28/17 09:22 Pulse Rate 59 L 12/28/17 09:22 Respiratory Rate 18 12/28/17 09:22 Blood Pressure 116/76 12/28/17 09:22 O2 Sat by Pulse Oximetry (%) Laboratory Tests 12/28/17 06:40 Urine Color Yellow Urine Appearance Clear Urine pH 5.0 Ur Specific [place] 1.029 Urine Protein Negative Urine Glucose (UA) Negative Urine Ketones Negative Urine Blood Negative Urine Nitrite Negative Urine Bilirubin Negative Urine Urobilinogen 4.0 e.u/dl Ur Leukocyte Esterase Negative labs pending pt aox3 , lying in bed in nad , cooperative with exam Assessment: 12/28/17 09:50 withdrawal sx's hiv chronic alcoholism benzo dep otp Plan: cont. present detox increase fluids motrin prn f/up pending labs
[2017-12-28] MEDS: METHADONE HCL 10 MG TABLET PO SCH (09:48)
[2017-12-28] MEDS: PRENATAL VITAMINS W/ FOLIC ACID TABLET (FP) PO SCH (09:49)
[2017-12-28] MEDS: NICOTINE 14 MG/24 HOURS TOPICAL PATCH TD SCH (09:49)
[2017-12-28 09:59] LABS: CHLORIDE 107 mmol/L (98-107); POTASSIUM 3.5 mmol/L (3.5-5.1); SODIUM 144 mmol/L (136-145)
[2017-12-28 10:09] LABS: WHITE BLOOD COUNT 5.2 K/mm3 (4.0-10.0)
[2017-12-28 10:15] LABS: HEMATOCRIT 39.3 % (35.4-49); HEMOGLOBIN 13.5 GM/dL (11.7-16.9); MCH 31.4 pg (25.7-33.7); MCHC 34.4 g/dl (32.0-35.9); MEAN CELL VOLUME 91.3 fl (80-96); MEAN PLT VOLUME 10.6 fl (7.5-11.1); PLATELET COUNT 128 K/MM3 (134-434); RDW 14.4 % (11.9-15.9)
[2017-12-28 11:01] LABS: ALBUMIN 3.4 g/dl (3.4-5.0); ALK PHOS 81 U/L (45-117); ANION GAP 11 (8-16); BILIRUBIN,TOTAL 0.6 mg/dL (0.2-1.0); BLOOD UREA NITROGEN 16 mg/dL (7-18); CALCIUM 8.7 mg/dL (8.5-10.1); CO2 26 mmol/L (21-32); CREATININE 0.8 mg/dL (0.7-1.3); GLUCOSE,RANDOM 127 mg/dL (74-106); SGOT/AST 74 U/L (15-37); SGPT/ALT 138 U/L (12-78); TOT PROT 6.7 g/dl (6.4-8.2)
--- NOTE | 2017-12-28 11:05 | CONSULT ---
[facility] Psychiatric Consult - Data Date of interview: 12/28/17 Admission source: [facility] Identifying data: This is 37 years old male, , father nof two, living with [facility] connie, unemployed, on PA, with no psychiatric hospitalization history, with long history of Cocaine, Heroin, Xanax and Nicotinen dependence, reports withdrawal symptoms and seeking for detox. Substance Abuse History: Smoking history: Current every day smoker. Have you smoked in the past 12 months: Yes. Aproximately how many cigarettes per day: 8. Cigars Per Day: 0. Hx Chewing Tobacco Use: No. Initiated information on smoking cessation: Yes. 'Breaking Loose' booklet given: 12/27/17. - Substance & Tx. History. Hx Alcohol Use: No. Hx Substance Use: Yes. Substance Use Type : Cocaine, Heroin, Tranquilizers (XANAX). Hx Substance Use Treatment: Yes ([facility] ). - Substances Abused. XANAX. Route: Oral. Frequency: Daily. Amount used: 10MG. Age of first use: 14. Date of Last Use: 12/27/17. HEROIN. Route: Injection. Frequency: Daily. Amount used: 3 BAGS. Age of first use: 11. Date of Last Use: 12/27/17. COCAINE. Route: Oral. Frequency: Daily. Amount used: 2 BAGS. Age of first use: 9. Date of Last Use: 12/27/17 Medical History: AISs, Asthma HepC+, MMTP 30mg poqd, Psychiatric History: Patient reports history of depression, refusing to restart psychiatric medications he has been taking priorm to admission: Celexa 20mg poqd. Seroquel 25mg po qhs Physical/Sexual Abuse/Trauma History: Denies Additional Comment: Observation. Detox Unit Care Mental Status Exam - Mental Status Exam Alert and Oriented to: Person Cognitive Function: Fair Patient Appearance: Unkempt Mood: Sad Affect: Flat Patient Behavior: Sedated Speech Pattern: Delayed Voice Loudness: Mildly Soft/Quiet Thought Process: Circumstantial Thought Disorder: Being Controlled Hallucinations: Denies Suicidal Ideation: Denies Homicidal Ideation: Denies Insight/Judgement: Fair Sleep: Difficulty falling asleep Appetite: Weight loss Muscle strength/Tone: Mild Hypotonicity Gait/Station: Shuffling Additional Comments: refusing to restart psychiatric medications he has been taking priorm to admission: Celexa 20mg poqd. Seroquel 25mg po qhs Psychiatric Findings - Problem List ([place] 1, 2,3) (1) Acquired immune deficiency syndrome (AIDS) Current Visit: Yes Status: Chronic (2) Asthma Current Visit: Yes Status: Chronic (3) Cocaine dependence Current Visit: Yes Status: Chronic (4) Hepatitis C carrier Current Visit: Yes Status: Chronic (5) Nicotine dependence Current Visit: Yes Status: Chronic Qualifiers: Nicotine product type: cigarettes Substance use status: uncomplicated Qualified Code(s): F17.210 - Nicotine dependence, cigarettes, uncomplicated (6) Opioid dependence on agonist therapy Current Visit: Yes Status: Chronic (7) Sedative, hypnotic or anxiolytic dependence with withdrawal, uncomplicated Current Visit: Yes Status: Chronic (8) mood disorder nos Current Visit: Yes Status: Suspected (9) syncope drug related Current Visit: No Status: Active (10) Anxiety disorder Current Visit: No Status: Chronic (11) Opioid dependence Current Visit: No Status: Chronic - Initial Treatment Plan Initial Treatment Plan: refusing to restart psychiatric medications he has been taking prior to admission: Celexa 20mg poqd. Seroquel 25mg po qhs
[2017-12-28] MEDS: diazePAM 5 MG TABLET PO PRN ×2 (12:26→18:11)
[2017-12-28] MEDS: MELATONIN 5 MG TABLETS PO PRN (22:18)
[2017-12-29] MEDS: METHADONE HCL 10 MG TABLET PO SCH (09:12)
--- NOTE | 2017-12-29 11:09 | PN ---
[facility] CIWA - CIWA Score Nausea/Vomitin-No Nausea/No Vomiting Muscle Tremors: 1-None Visible, but [place] Anxiety: 0-No Anxiety, at Ease Agitation: 0-Normal Activity Paroxysmal Sweats: No Perspiration Orientation: 0-Oriented Tacttile Disturbances: 0-None Auditory Disturbances: 0-None Visual Disturbances: 0-None Headache: 0-None Present CIWA-Ar Total Score: 1 BHS Progress Note (SOAP) Subjective: PATIENT PRESENTS FOR BENZODIAZEPINE WITHDRAWALS. STATES "I FEEL GOOD. ONLY A LITTLE SHAKES". DENIES N/V/D. NO CP, SWEATING, SOB AND DIZZINESS REPORTED. Objective: 12/29/17 11:06 Laboratory Tests 12/28/17 12/28/17 12/28/17 06:40 06:40 06:40 WBC 5.2 RBC 4.30 Hgb 13.5 Hct 39.3 MCV 91.3 MCH 31.4 MCHC 34.4 RDW 14.4 Plt Count 128 L MPV 10.6 Sodium 144 Potassium 3.5 Chloride 107 Carbon Dioxide 26 Anion Gap 11 BUN 16 D Creatinine 0.8 Creat Clearance w eGFR > 60 Random Glucose 127 H Calcium 8.7 Total Bilirubin 0.6 D AST 74 H D ALT 138 H D Alkaline Phosphatase 81 Total Protein 6.7 Albumin 3.4 Urine Color Urine Appearance Urine pH Ur Specific [place] Urine Protein Urine Glucose (UA) Urine Ketones Urine Blood Urine Nitrite Urine Bilirubin Urine Urobilinogen Ur Leukocyte Esterase RPR Titer Nonreactive 12/28/17 06:40 WBC RBC Hgb Hct MCV MCH MCHC RDW Plt Count MPV Sodium Potassium Chloride Carbon Dioxide Anion Gap BUN Creatinine Creat Clearance w eGFR Random Glucose Calcium Total Bilirubin AST ALT Alkaline Phosphatase Total Protein Albumin Urine Color Yellow Urine Appearance Clear Urine pH 5.0 Ur Specific [place] 1.029 Urine Protein Negative Urine Glucose (UA) Negative Urine Ketones Negative Urine Blood Negative Urine Nitrite Negative Urine Bilirubin Negative Urine Urobilinogen 4.0 e.u/dl Ur Leukocyte Esterase Negative RPR Titer Vital Signs Temperature 98.1 F 12/29/17 09:31 Pulse Rate 70 12/29/17 09:31 Respiratory Rate 16 12/29/17 09:31 Blood Pressure 107/76 12/29/17 09:31 O2 Sat by Pulse Oximetry (%) OBJ: GENERAL: ALERT AND ORIENTED X 3. IN NAD. SKIN: INTACT, WARM AND DRY EXT: FULL ROM, NO EDEMA Assessment: 12/29/17 11:07 BZO DETOX Plan: WILL CONTINUE CURRENT TX ENCOURAGE ORAL HYDRATION CONTINUE TO MONITOR CLINICALLY
[2017-12-29] MEDS: diazePAM 5 MG TABLET PO SCH ×2 (11:11→22:08)
[2017-12-29] MEDS: PRENATAL VITAMINS W/ FOLIC ACID TABLET (FP) PO SCH (11:11)
[2017-12-29] MEDS: NICOTINE 14 MG/24 HOURS TOPICAL PATCH TD SCH (11:12)
[2017-12-29] MEDS: THIAMINE HCL 100 MG TABLET (FP) PO SCH (22:07)
[2017-12-29] MEDS: MELATONIN 5 MG TABLETS PO PRN (22:07)
[2017-12-30] MEDS: METHADONE HCL 10 MG TABLET PO SCH (05:37)
[2017-12-30] MEDS: diazePAM 5 MG TABLET PO PRN (05:38)
[2017-12-30] MEDS: PRENATAL VITAMINS W/ FOLIC ACID TABLET (FP) PO SCH (10:12)
[2017-12-30] MEDS: NICOTINE 14 MG/24 HOURS TOPICAL PATCH TD SCH (10:12)
[2017-12-30] MEDS: diazePAM 5 MG TABLET PO SCH ×2 (10:12→22:13)
--- NOTE | 2017-12-30 15:40 | PN ---
BHS Progress Note (SOAP) Subjective: Pt doing well- has no complaints, leaving tomorrow, would like to go to methadone program early AM Objective: 12/30/17 15:38 Vital Signs - 24 hr 12/29/17 12/29/17 12/30/17 17:33 21:54 03:30 Temperature 97.3 F L 98.1 F Pulse Rate 71 80 Respiratory 18 18 18 Rate Blood Pressure 106/56 98/63 12/30/17 12/30/17 12/30/17 07:34 09:48 14:00 Temperature 97.3 F L 98.1 F 98.1 F Pulse Rate 60 95 H 89 Respiratory 18 18 18 Rate Blood Pressure 116/71 101/69 98/69 Laboratory Tests 12/28/17 12/28/17 12/28/17 06:40 06:40 06:40 WBC 5.2 RBC 4.30 Hgb 13.5 Hct 39.3 MCV 91.3 MCH 31.4 MCHC 34.4 RDW 14.4 Plt Count 128 L MPV 10.6 Sodium 144 Potassium 3.5 Chloride 107 Carbon Dioxide 26 Anion Gap 11 BUN 16 D Creatinine 0.8 Creat Clearance w eGFR > 60 Random Glucose 127 H Calcium 8.7 Total Bilirubin 0.6 D AST 74 H D ALT 138 H D Alkaline Phosphatase 81 Total Protein 6.7 Albumin 3.4 Urine Color Urine Appearance Urine pH Ur Specific [place] Urine Protein Urine Glucose (UA) Urine Ketones Urine Blood Urine Nitrite Urine Bilirubin Urine Urobilinogen Ur Leukocyte Esterase RPR Titer Nonreactive 12/28/17 06:40 WBC RBC Hgb Hct MCV MCH MCHC RDW Plt Count MPV Sodium Potassium Chloride Carbon Dioxide Anion Gap BUN Creatinine Creat Clearance w eGFR Random Glucose Calcium Total Bilirubin AST ALT Alkaline Phosphatase Total Protein Albumin Urine Color Yellow Urine Appearance Clear Urine pH 5.0 Ur Specific [place] 1.029 Urine Protein Negative Urine Glucose (UA) Negative Urine Ketones Negative Urine Blood Negative Urine Nitrite Negative Urine Bilirubin Negative Urine Urobilinogen 4.0 e.u/dl Ur Leukocyte Esterase Negative RPR Titer stable VS and nl PE Assessment: 12/30/17 15:38 Pt here for xanax detox treatment, continue on methadone [facility]. Mildly elevated liver enzymes- Plan: pt to leave early tomorrow to [facility], continue [facility] detox per protocol
[2017-12-30] MEDS: THIAMINE HCL 100 MG TABLET (FP) PO SCH (22:12)
[2017-12-31] MEDS: METHADONE HCL 10 MG TABLET PO SCH (05:24)
[2017-12-31 06:12] VITALS: BP 118/69; PULSE 65; TEMP 97.5
[2017-12-31] MEDS ORDERED: diazePAM 5 MG TABLET PO SCH (10:00)
--- NOTE | 2017-12-31 19:48 | DS ---
[facility] Detox Discharge Summary Admission Date: 12/27/17 Discharge Date: 12/31/17 - History Present History: Cocaine Dependence, Sedative Dependence Additional Comments: pt for discharge Pertinent Past History: AIDS Asthma Hep C MMTP - Physical Exam Results Vital Signs: Vital Signs Temperature 97.5 F L 12/31/17 06:00 Pulse Rate 65 12/31/17 06:00 Respiratory Rate 18 12/31/17 06:00 Blood Pressure 118/69 12/31/17 06:00 O2 Sat by Pulse Oximetry (%) Pertinent Admission Physical Exam Findings: withdrawal sx - Treatment Hospital Course: Detox Protocol Followed, Detoxed Safely, Responded well, Discharged Condition Good - Medication Discharge Medications: Ambulatory Orders Citalopram Hydrobromide [Celexa -] 20 mg PO DAILY #30 tablet 08/24/13 Quetiapine Fumarate [Seroquel -] 25 mg PO HS #30 tablet 08/24/13 Albuterol Sulfate Inhaler - [Ventolin HFA Inhaler -] 2 inh IH Q4H PRN #1 inh 04/30 Ranitidine [Zantac -] 150 mg PO BID #60 tablet 08/27/13 Abacavir/Dolutegravir/Lamivudi [Triumeq Tablet] 1 each PO DAILY 03/27/17 - AMA Did Patient Leave Against Medical Advice: No
== END 2017-12-31 06:56 | disposition home or self-care (01) | DRG 773 ==
LOC: YASAS 18:23 → Y6N 22:15
PROVIDERS: ADMIT Surgery; ATTEND Surgery
PROC: HZ2ZZZZ Detoxification Services for Substance Abuse Treatment (ICD-10-PCS; principal; 2017-12-27)
DX: F13.230 Sedative, hypnotic or anxiolytic dependence with withdrawal, uncomplicated (principal); F11.20 Opioid dependence, uncomplicated; F12.20 Cannabis dependence, uncomplicated; F17.210 Nicotine dependence, cigarettes, uncomplicated; F41.9 Anxiety disorder, unspecified; F39 Unspecified mood [affective] disorder; B20 Human immunodeficiency virus [HIV] disease; J45.909 Unspecified asthma, uncomplicated; B18.2 Chronic viral hepatitis C; R94.5 Abnormal results of liver function studies; Z91.5 Personal history of self-harm
CPT/HCPCS: 36415; 80053; 81003; 85027; 86593; 93005; 93010

== ENCOUNTER 2018-02-14 18:36 | Inpatient (IN) | payer OTHER ==
[2018-02-14 19:35] VITALS: BMI 32.1
--- NOTE | 2018-02-14 21:36 | HP ---
CIWA Score - CIWA Score Nausea/Vomitin-No Nausea/No Vomiting Muscle Tremors: None Anxiety: 4-Mod. Anxious/Guarded Agitation: 4-Moderately Restless Paroxysmal Sweats: 3 Orientation: 0-Oriented Tacttile Disturbances: 0-None Auditory Disturbances: 0-None Visual Disturbances: 0-None Headache: 0-None Present CIWA-Ar Total Score: 11 Admission ROS BHS - HPI Chief Complaint: C/O WITHDRAWAL SX'S. SEEKING DETOX Allergies/Adverse Reactions: Allergies Allergy/AdvReac Type Severity Reaction Status Date / Time No Known Allergies Allergy Verified 02/14/18 19:35 History of Present Illness: 37 Y.O. MALE WITH LONG HX/O POLYSUBSTANCE ABUSE HERE FOR DETOX FROM [facility]. CLIENT STATES HE IS ON MMTP, MEDICATED WITH METHADONE 40 MG TODAY FROM [facility]. HE IS KNOWN TO THIS PROGRAM. LAST HERE 12/2017. REPORTS LONGEST CLEAN TIME 1 YEAR. HX/O OF DRUG OVERDOSE X 2. DENIES SEIZURES, SI/HI AND A/V HALLUCINATIONS. PMHX: ASTHMA, HIV, HEPC (TREATED). PSYCH: DENIES Exam Limitations: No Limitations - Ebola screening Have you traveled outside of the country in the last 21 days: No Have you had contact with anyone from an Ebola affected area: No Have you been sick,other than usual withdrawal symptoms: No - Review of Systems Constitutional: Chills, Loss of Appetite, Changes in sleep EENT: reports: Dental Problems (DENTAL BRIDGE) Respiratory: reports: Shortness of Breath, Other (HX/O ASTHMA) Cardiac: reports: No Symptoms Reported GI: reports: Poor Appetite : reports: No Symptoms Reported Musculoskeletal: reports: Neck Pain Integumentary: reports: No Symptoms Reported Neuro: reports: No Symptoms reported Endocrine: reports: No Symptoms Reported Hematology: reports: No Symptoms Reported Psychiatric: reports: Anxious Other Systems: Reviewed and Negative Patient History - Patient Medical History Hx Anemia: No Hx Asthma: Yes Hx Chronic Obstructive Pulmonary Disease (COPD): No Hx Cancer: No Hx Cardiac Disorders: No Hx Congestive Heart Failure: No Hx Hypertension: No Hx Hypercholesterolemia: No Hx Pacemaker: No HX Cerebrovascular Accident: No Hx Seizures: No Hx Dementia: No Hx Diabetes: No Hx Gastrointestinal Disorders: No Hx Liver Disease: No Hx Genitourinary Disorders: No Hx Sexually Transmitted Disorders: No Hx Renal Disease (ESRD): No Hx Thyroid Disease: Yes (NOT SURE) Hx Human Immunodeficiency Virus (HIV): Yes Hx Hepatitis C: Yes (COMPLETED TXMENT) Hx Depression: Yes Hx Suicide Attempt: Yes (pill overdose at age 14) Hx Bipolar Disorder: No Hx Schizophrenia: No - Patient Surgical History Past Surgical History: No Hx Neurologic Surgery: No Hx Cataract Extraction: No Hx Cardiac Surgery: No Hx Lung Surgery: No Hx Breast Surgery: No Hx Breast Biopsy: No Hx Abdominal Surgery: No Hx Appendectomy: No Hx Cholecystectomy: No Hx Genitourinary Surgery: No Hx Section: No Hx Orthopedic Surgery: No Anesthesia Reaction: No - PPD History Previous Implant?: Yes Documented Results: Negative w/proof Date: 12/30/17 Results: 0 mm PPD to be Administered?: No - Smoking Cessation Smoking history: Current every day smoker Have you smoked in the past 12 months: Yes Aproximately how many cigarettes per day: 8 Cigars Per Day: 0 Hx Chewing Tobacco Use: No Initiated information on smoking cessation: Yes 'Breaking Loose' booklet given: 02/14/18 - Substance & Tx. History Hx Substance Use: Yes Substance Use Type: Prescribed (METHADONE 40 MG), Tranquilizers (XANAX) Hx Substance Use Treatment: Yes ([facility]) - Substances Abused Alprazolam (Xanax) Route: Oral Frequency: Daily Amount used: 5mg Age of first use: 14 Date of Last Use: 02/14/18 Family Disease History - Family Disease History Family Disease History: Diabetes: Grandparent, CA: Mother (leucemia) Admission Physical Exam S - Vital Signs Vital Signs: Vital Signs - 24 hr 02/14/18 19:34 Temperature 97.5 F L Pulse Rate 72 Respiratory 18 Rate Blood Pressure 109/88 - Physical General Appearance: Yes: Appropriately Dressed, Anxious HEENTM: Yes: EOMI, Normocephalic, Normal Voice, SHELBY, Pharynx Normal Respiratory: Yes: Chest Non-Tender, Lungs Clear, Normal Breath Sounds, No Respiratory Distress, No Accessory Muscle Use Neck: Yes: No masses,lesions,Nodules, Supple, Trachea in good position Breast: Yes: Breast Exam Deferred Cardiology: Yes: Regular Rhythm, Regular Rate, S1, S2 Abdominal: Yes: Normal Bowel Sounds, Non Tender, Soft Genitourinary: Yes: Within Normal Limits Back: Yes: Normal Inspection Musculoskeletal: Yes: full range of Motion, Gait Steady Extremities: Yes: Normal Capillary Refill, Normal Inspection, Normal Range of Motion, Non-Tender Neurological: Yes: Fully Oriented, Alert, Motor Strength 5/5 Integumentary: Yes: Normal Color, Warm, Moist Lymphatic: Yes: Within Normal Limits - Diagnostic (1) Opioid dependence on agonist therapy Current Visit: Yes Status: Chronic Comment: NARCO FREEDOM METHADONE 40 MG (2) Sedative, hypnotic or anxiolytic dependence with withdrawal, uncomplicated Current Visit: Yes Status: Acute (3) Acquired immune deficiency syndrome (AIDS) Current Visit: Yes Status: Chronic (4) Asthma Current Visit: Yes Status: Chronic (5) Nicotine dependence Current Visit: Yes Status: Chronic Qualifiers: Nicotine product type: cigarettes Substance use status: uncomplicated Qualified Code(s): F17.210 - Nicotine dependence, cigarettes, uncomplicated Cleared for Admission [facility] - Detox or Rehab [facility] Level of Care: Medically Managed Detox Regimen/Protocol: Valium Claeared for Rehab Admission: No S Breath Alcohol Content Breath Alcohol Content: 0 Urine Drug Screen - Results Drug Screen Negative: No Urine Drug Screen Results: BZO-Benzodiazepines, MTD-Methadone
[2018-02-14] MEDS ORDERED: ALBUTEROL SO4 8 GM HFA INHALER IH PRN (21:43)
[2018-02-14] MEDS ORDERED: hydrOXYzine PAMOATE 50 MG CAPSULE (FP) PO PRN (21:44)
[2018-02-14] MEDS ORDERED: MENTHOL/PHENOL 1 EACH UD MM PRN (21:44)
[2018-02-14] MEDS ORDERED: MAGNESIUM HYDROX 2400MG/30ML ORAL SUSPENSION 30 ML CUP PO PRN (21:44)
[2018-02-14] MEDS ORDERED: P-EPHED 60MG/TRIPROLIDI 2.5MG TABLET PO PRN (21:44)
[2018-02-14] MEDS ORDERED: IBUPROFEN 400 MG TABLET (FP) PO PRN (21:44)
[2018-02-14] MEDS ORDERED: NICOTINE POLACRILEX 2 MG GUM BUC PRN (21:44)
[2018-02-14] MEDS ORDERED: MAG HYDROX/AL HYDROX/SIMETH 30 ML UNIT-DOSE CUP PO PRN (21:44)
[2018-02-14] MEDS ORDERED: LOPERAMIDE HCL 2 MG CAPSULE PO PRN (21:44)
[2018-02-14] MEDS ORDERED: guaiFENesin/D-METHORPHAN HB 10 ML UNIT-DOSE CUPS PO PRN (21:44)
[2018-02-14] MEDS ORDERED: ACETAMINOPHEN 325 MG TABLET (FP) PO PRN (21:44)
[2018-02-14] MEDS ORDERED: MAGNESIUM CITRATE 300 ML BOTTLE PO PRN (21:44)
[2018-02-14] MEDS ORDERED: diazePAM 5 MG TABLET PO ONE (22:00)
[2018-02-14] MEDS ORDERED: MELATONIN 5 MG TABLETS PO PRN (22:00)
[2018-02-14] MEDS: THIAMINE HCL 100 MG TABLET (FP) PO SCH (23:54)
[2018-02-14] MEDS: diazePAM 5 MG TABLET PO SCH (23:54)
[2018-02-15] MEDS: diazePAM 5 MG TABLET PO SCH ×3 (05:35→22:03)
[2018-02-15] MEDS ORDERED: METHADONE HCL 40 MG DISPERSABLE TABLET PO ONE (08:41)
[2018-02-15 10:09] LABS: ALBUMIN 3.6 g/dl (3.4-5.0); ANION GAP 7 (8-16); BLOOD UREA NITROGEN 13 mg/dL (7-18); CALCIUM 8.9 mg/dL (8.5-10.1); CHLORIDE 105 mmol/L (98-107); CO2 29 mmol/L (21-32); CREATININE 0.7 mg/dL (0.7-1.3); GLUCOSE,RANDOM 84 mg/dL (74-106); HEMOGLOBIN 13.8 GM/dL (11.7-16.9); MCH 31.3 pg (25.7-33.7); MCHC 34.4 g/dl (32.0-35.9); MEAN CELL VOLUME 90.8 fl (80-96); MEAN PLT VOLUME 10.4 fl (7.5-11.1); PLATELET COUNT 116 K/MM3 (134-434); POTASSIUM 3.7 mmol/L (3.5-5.1); RBC 4.41 M/mm3 (4.00-5.60); RDW 13.2 % (11.9-15.9); SGPT/ALT 116 U/L (12-78); SODIUM 141 mmol/L (136-145); WHITE BLOOD COUNT 5.6 K/mm3 (4.0-10.0)
[2018-02-15 10:11] LABS: ALK PHOS 87 U/L (45-117); BILIRUBIN,TOTAL 0.7 mg/dL (0.2-1.0); SGOT/AST 64 U/L (15-37); TOT PROT 7.2 g/dl (6.4-8.2)
[2018-02-15] MEDS: NICOTINE 14 MG/24 HOURS TOPICAL PATCH TD SCH (10:21)
[2018-02-15] MEDS: PRENATAL VITAMINS W/ FOLIC ACID TABLET (FP) PO SCH (10:21)
[2018-02-15] MEDS: diazePAM 5 MG TABLET PO PRN (10:21)
--- NOTE | 2018-02-15 10:47 | EKG ---
Test Reason : Blood Pressure : / mmHG Vent. Rate : 057 BPM Atrial Rate : 057 BPM P-R Int : 144 ms QRS Dur : 092 ms QT Int : 464 ms P-R-T Axes : 091 042 048 degrees QTc Int : 451 ms POOR DATA QUALITY, INTERPRETATION MAY BE ADVERSELY AFFECTED SINUS BRADYCARDIA OTHERWISE NORMAL ECG WHEN COMPARED WITH ECG OF 28-DEC-2017 01:40, NO SIGNIFICANT CHANGE WAS FOUND Confirmed by HANH NÚÑEZ, KRISTEL ([id number]) on 02/15/2018 10:46:56 AM Referred By: Confirmed By:RKISTEL SCHAFER MD
--- NOTE | 2018-02-15 12:18 | PN ---
[facility] CIWA - CIWA Score Nausea/Vomitin-No Nausea/No Vomiting Muscle Tremors: 4-Moderate,w/Arms Extend Anxiety: 4-Mod. Anxious/Guarded Agitation: 4-Moderately Restless Paroxysmal Sweats: 1-Minimal Palms Moist Orientation: 0-Oriented Tacttile Disturbances: 0-None Auditory Disturbances: 0-None Visual Disturbances: 0-None Headache: 0-None Present CIWA-Ar Total Score: 13 BHS Progress Note (SOAP) Subjective: ANXIETY,IRRITABILITY,HOT/COLD FLASHES. Objective: 02/15/18 12:17 Vital Signs 02/15/18 02/15/18 06:22 09:03 Temperature 97.5 F L 97.7 F Pulse Rate 57 L 74 Respiratory 18 18 Rate Blood Pressure 108/70 114/85 Laboratory Tests 02/15/18 02/15/18 07:30 07:30 WBC 5.6 RBC 4.41 Hgb 13.8 Hct 40.0 MCV 90.8 MCH 31.3 MCHC 34.4 RDW 13.2 Plt Count 116 L MPV 10.4 Sodium 141 Potassium 3.7 Chloride 105 Carbon Dioxide 29 Anion Gap 7 L BUN 13 Creatinine 0.7 Creat Clearance w eGFR > 60 Random Glucose 84 D Calcium 8.9 Total Bilirubin 0.7 AST 64 H ALT 116 H Alkaline Phosphatase 87 Total Protein 7.2 Albumin 3.6 OTHER LABS PENDING Assessment: 02/15/18 12:17 WITHDRAWAL SX Plan: CONTINUE DETOX
[2018-02-15 14:49] LABS: URINE APPEARANCE CLEAR; URINE BILIRUBIN NEGATIVE (<2.0 mg/dL); URINE COLOR DKYELLOW; URINE GLUCOSE (UA) NEGATIVE (NEGATIVE); URINE KETONE NEGATIVE (NEGATIVE); URINE LEUK ESTERASE NEGATIVE (NEGATIVE); URINE NITRITE NEGATIVE (NEGATIVE); URINE PROTEIN NEGATIVE (NEGATIVE); URINE UROBILINOGEN 4.0 E.U/dl mg/dL (0.2-1.0)
--- NOTE | 2018-02-15 15:27 | CONSULT ---
[facility] Psychiatric Consult - Data Date of interview: 02/15/18 Admission source: [facility] Identifying data: Readmission to [facility] for this 37 y/o male seeking detox treatment on for heroin,xanax and cocaine dependence.Patient is ,a father of two,domiciled,unemployed and supported on [employer] benefits. Substance Abuse History: Confirmed by the patient in this interview.Smoking history: Current every day smoker. Have you smoked in the past 12 months: Yes. Aproximately how many cigarettes per day: 8. Cigars Per Day: 0. Hx Chewing Tobacco Use: No. Initiated information on smoking cessation: Yes. 'Breaking Loose' booklet given: 02/14/18. - Substance & Tx. History. Hx Substance Use: Yes. Substance Use Type: Prescribed (METHADONE 40 MG), Tranquilizers (XANAX). Hx Substance Use Treatment: Yes ([facility] - Substances Abused. Alprazolam ( Xanax). Route: Oral. Frequency: Daily. Amount used: 5mg. Age of first use: 14. Date of Last Use: 02/14/18 Medical History: Hepatitis C,bronchial asthma,HIV infection since 2003 and chronic lumbar pain. Psychiatric History: No reported history of psychiatric hospitalizations.Patient indicates that he used to be prescribed citalopram and seroquel for insomnia." NOt sure " about his psychiatric diagnosis but he admits to having exprerienced " depression and anxiety " in the past.Currently off psychotropics except for methadone maintenance (40 mg/day) at the [facility] in the [place].Mr Walker endorses a remote history of one suicide attempt (age 14)) via overdose with pills. Physical/Sexual Abuse/Trauma History: Patient denies. Additional Comment: Urine Drug Screen Results: BZO-Benzodiazepines, MTD- Methadone.Noted. Mental Status Exam - Mental Status Exam Alert and Oriented to: Time, Place, Person Cognitive Function: Good Patient Appearance: Well Groomed Mood: Hopeful, Euthymic Affect: Appropriate, Normal Range Patient Behavior: Appropriate, Cooperative Speech Pattern: Clear (bilingual), Appropriate Voice Loudness: Normal Thought Process: Intact, Goal Oriented Hallucinations: Denies Suicidal Ideation: Denies Homicidal Ideation: Denies Insight/Judgement: Fair Sleep: Poorly, Difficulty falling asleep Appetite: Good Muscle strength/Tone: Normal Gait/Station: Normal Psychiatric Findings - Problem List ([place] 1, 2,3) (1) Opioid dependence on agonist therapy Current Visit: Yes Status: Acute Comment: NARCO FREEDOM METHADONE 40 MG (2) Sedative, hypnotic or anxiolytic dependence with withdrawal, uncomplicated Current Visit: Yes Status: Acute (3) Cocaine dependence Current Visit: Yes Status: Acute (4) Nicotine dependence Current Visit: Yes Status: Acute Qualifiers: Nicotine product type: cigarettes Substance use status: in withdrawal Qualified Code(s): F17.213 - Nicotine dependence, cigarettes, with withdrawal (5) Insomnia Current Visit: Yes Status: Acute - Initial Treatment Plan Initial Treatment Plan: Psychoeducation.Detoxification.Sleep hygiene.Ambien 5 mg po hs prn (patient's request).Made aware of risk of parasomnias.Patient agrees to this careplan.Observation.
[2018-02-15] MEDS: THIAMINE HCL 100 MG TABLET (FP) PO SCH (22:03)
[2018-02-15] MEDS: ZOLPIDEM TARTRATE 5 MG TABLET PO PRN (22:05)
[2018-02-16] MEDS: diazePAM 5 MG TABLET PO PRN ×3 (05:31→18:31)
[2018-02-16] MEDS: METHADONE HCL 40 MG DISPERSABLE TABLET PO SCH (06:04)
[2018-02-16] MEDS: diazePAM 5 MG TABLET PO SCH ×2 (10:16→22:08)
[2018-02-16] MEDS: PRENATAL VITAMINS W/ FOLIC ACID TABLET (FP) PO SCH (10:16)
[2018-02-16] MEDS: NICOTINE 14 MG/24 HOURS TOPICAL PATCH TD SCH (10:16)
[2018-02-16] MEDS ORDERED: PANTOPRAZOLE 20 MG TABLET (FP) PO ONE (10:57)
--- NOTE | 2018-02-16 11:00 | PN ---
[facility] CIWA - CIWA Score Nausea/Vomitin-No Nausea/No Vomiting Muscle Tremors: None Anxiety: 4-Mod. Anxious/Guarded Agitation: 4-Moderately Restless Paroxysmal Sweats: 3 Orientation: 0-Oriented Tacttile Disturbances: 2-Mild Itch/Numbness/Burn Auditory Disturbances: 0-None Visual Disturbances: 1-Very Mild Sensitivity Headache: 0-None Present CIWA-Ar Total Score: 14 BHS Progress Note (SOAP) Subjective: Interrupted Sleep, Sweating, Constipation. Objective: PATIENT A & O X 3, OBSERVED AMBULATING ON UNIT. NO ACUTE DISTRESS. 02/16/18 10:58 Vital Signs Temperature 98.7 F 02/16/18 09:10 Pulse Rate 84 02/16/18 09:10 Respiratory Rate 18 02/16/18 09:10 Blood Pressure 104/70 02/16/18 09:10 O2 Sat by Pulse Oximetry (%) Laboratory Tests 02/15/18 02/15/18 02/15/18 07:30 07:30 11:50 WBC 5.6 RBC 4.41 Hgb 13.8 Hct 40.0 MCV 90.8 MCH 31.3 MCHC 34.4 RDW 13.2 Plt Count 116 L MPV 10.4 Sodium 141 Potassium 3.7 Chloride 105 Carbon Dioxide 29 Anion Gap 7 L BUN 13 Creatinine 0.7 Creat Clearance w eGFR > 60 Random Glucose 84 D Calcium 8.9 Total Bilirubin 0.7 AST 64 H ALT 116 H Alkaline Phosphatase 87 Total Protein 7.2 Albumin 3.6 Urine Color Dkyellow Urine Appearance Clear Urine pH 5.0 Ur Specific [place] 1.023 Urine Protein Negative Urine Glucose (UA) Negative Urine Ketones Negative Urine Blood Negative Urine Nitrite Negative Urine Bilirubin Negative Urine Urobilinogen 4.0 e.u/dl Ur Leukocyte Esterase Negative LABS NOTED. RPR RESULT PENDING. 02/16/18 11:00 Assessment: 02/16/18 10:59 WITHDRAWAL SYMPTOMS. Plan: CONTINUE DETOX. INCREASE DAILY PO FLUID INTAKE. PRN MOM FOR CONSTIPATION.
[2018-02-16] MEDS: ZOLPIDEM TARTRATE 5 MG TABLET PO PRN (22:07)
[2018-02-16] MEDS: THIAMINE HCL 100 MG TABLET (FP) PO SCH (22:08)
[2018-02-17] MEDS: METHADONE HCL 40 MG DISPERSABLE TABLET PO SCH (05:40)
[2018-02-17] MEDS: diazePAM 5 MG TABLET PO PRN ×3 (05:41→17:53)
[2018-02-17] MEDS: NICOTINE 14 MG/24 HOURS TOPICAL PATCH TD SCH (10:25)
[2018-02-17] MEDS: PANTOPRAZOLE 20 MG TABLET (FP) PO SCH (10:25)
[2018-02-17] MEDS: diazePAM 5 MG TABLET PO SCH ×2 (10:25→22:13)
[2018-02-17] MEDS: PRENATAL VITAMINS W/ FOLIC ACID TABLET (FP) PO SCH (10:25)
--- NOTE | 2018-02-17 15:13 | PN ---
BHS Progress Note (SOAP) Subjective: pt without complaints today- wants to see Objective: 02/17/18 15:11 Vital Signs - 24 hr 02/16/18 02/16/18 02/17/18 18:21 21:52 00:30 Temperature 99 F 97.8 F Pulse Rate 90 82 Respiratory 18 16 18 Rate Blood Pressure 102/75 100/71 02/17/18 02/17/18 02/17/18 03:30 06:44 09:35 Temperature 97.5 F L 98.1 F Pulse Rate 64 98 H Respiratory 18 18 16 Rate Blood Pressure 102/65 103/70 02/17/18 14:12 Temperature 98 F Pulse Rate 85 Respiratory 20 Rate Blood Pressure 107/74 Laboratory Tests 02/15/18 02/15/18 02/15/18 07:30 07:30 07:30 WBC 5.6 RBC 4.41 Hgb 13.8 Hct 40.0 MCV 90.8 MCH 31.3 MCHC 34.4 RDW 13.2 Plt Count 116 L MPV 10.4 Sodium 141 Potassium 3.7 Chloride 105 Carbon Dioxide 29 Anion Gap 7 L BUN 13 Creatinine 0.7 Creat Clearance w eGFR > 60 Random Glucose 84 D Calcium 8.9 Total Bilirubin 0.7 AST 64 H ALT 116 H Alkaline Phosphatase 87 Total Protein 7.2 Albumin 3.6 Urine Color Urine Appearance Urine pH Ur Specific [place] Urine Protein Urine Glucose (UA) Urine Ketones Urine Blood Urine Nitrite Urine Bilirubin Urine Urobilinogen Ur Leukocyte Esterase RPR Titer Nonreactive 02/15/18 11:50 WBC RBC Hgb Hct MCV MCH MCHC RDW Plt Count MPV Sodium Potassium Chloride Carbon Dioxide Anion Gap BUN Creatinine Creat Clearance w eGFR Random Glucose Calcium Total Bilirubin AST ALT Alkaline Phosphatase Total Protein Albumin Urine Color Dkyellow Urine Appearance Clear Urine pH 5.0 Ur Specific [place] 1.023 Urine Protein Negative Urine Glucose (UA) Negative Urine Ketones Negative Urine Blood Negative Urine Nitrite Negative Urine Bilirubin Negative Urine Urobilinogen 4.0 e.u/dl Ur Leukocyte Esterase Negative RPR Titer labs and VS WNL pt ambulatory, grossly nl PE Assessment: 02/17/18 15:12 pt stable-continue withdrawal protocol
[2018-02-17] MEDS: ZOLPIDEM TARTRATE 5 MG TABLET PO PRN (22:13)
[2018-02-17] MEDS: THIAMINE HCL 100 MG TABLET (FP) PO SCH (22:13)
[2018-02-18] MEDS: METHADONE HCL 40 MG DISPERSABLE TABLET PO SCH (05:44)
[2018-02-18] MEDS ORDERED: diazePAM 5 MG TABLET PO SCH (10:00)
[2018-02-18] MEDS: NICOTINE 14 MG/24 HOURS TOPICAL PATCH TD SCH (10:11)
[2018-02-18] MEDS: PRENATAL VITAMINS W/ FOLIC ACID TABLET (FP) PO SCH (10:11)
[2018-02-18] MEDS: PANTOPRAZOLE 20 MG TABLET (FP) PO SCH (10:12)
--- NOTE | 2018-02-18 18:15 | PN ---
BHS Progress Note (SOAP) Subjective: Interrupted Sleep, Hot / Cold Sensations, Sweating, Stomach Cramping, Constipation. Objective: PATIENT A & O X 3, OBSERVED AMBULATING ON UNIT. NO ACUTE DISTRESS. 02/18/18 18:13 Vital Signs Temperature 96.7 F L 02/18/18 15:16 Pulse Rate 72 02/18/18 15:16 Respiratory Rate 18 02/18/18 15:16 Blood Pressure 118/70 02/18/18 15:16 O2 Sat by Pulse Oximetry (%) Laboratory Tests 02/15/18 02/15/18 02/15/18 07:30 07:30 07:30 WBC 5.6 RBC 4.41 Hgb 13.8 Hct 40.0 MCV 90.8 MCH 31.3 MCHC 34.4 RDW 13.2 Plt Count 116 L MPV 10.4 Sodium 141 Potassium 3.7 Chloride 105 Carbon Dioxide 29 Anion Gap 7 L BUN 13 Creatinine 0.7 Creat Clearance w eGFR > 60 Random Glucose 84 D Calcium 8.9 Total Bilirubin 0.7 AST 64 H ALT 116 H Alkaline Phosphatase 87 Total Protein 7.2 Albumin 3.6 Urine Color Urine Appearance Urine pH Ur Specific [place] Urine Protein Urine Glucose (UA) Urine Ketones Urine Blood Urine Nitrite Urine Bilirubin Urine Urobilinogen Ur Leukocyte Esterase RPR Titer Nonreactive 02/15/18 11:50 WBC RBC Hgb Hct MCV MCH MCHC RDW Plt Count MPV Sodium Potassium Chloride Carbon Dioxide Anion Gap BUN Creatinine Creat Clearance w eGFR Random Glucose Calcium Total Bilirubin AST ALT Alkaline Phosphatase Total Protein Albumin Urine Color Dkyellow Urine Appearance Clear Urine pH 5.0 Ur Specific [place] 1.023 Urine Protein Negative Urine Glucose (UA) Negative Urine Ketones Negative Urine Blood Negative Urine Nitrite Negative Urine Bilirubin Negative Urine Urobilinogen 4.0 e.u/dl Ur Leukocyte Esterase Negative RPR Titer LABS NOTED. Assessment: 02/18/18 18:13 WITHDRAWAL SYMPTOMS. Plan: CONTINUE DETOX. DUE TO LINGERING WITHDRAWAL SYMPTOMS, PATIENT PERMITTED TO REMAIN ON DETOX UNIT UNTIL TOMORROW AM, AT WHICH TIME HE WILL APPLY FOR ADMISSION TO [facility] FOR AFTERCARE.
[2018-02-18] MEDS: ZOLPIDEM TARTRATE 5 MG TABLET PO PRN (21:40)
[2018-02-18] MEDS: THIAMINE HCL 100 MG TABLET (FP) PO SCH (22:39)
[2018-02-19] MEDS: METHADONE HCL 40 MG DISPERSABLE TABLET PO SCH (05:47)
[2018-02-19] MEDS: NICOTINE 14 MG/24 HOURS TOPICAL PATCH TD SCH (10:24)
[2018-02-19] MEDS: PANTOPRAZOLE 20 MG TABLET (FP) PO SCH (10:24)
[2018-02-19] MEDS: PRENATAL VITAMINS W/ FOLIC ACID TABLET (FP) PO SCH (10:24)
[2018-02-19 11:13] VITALS: BP 105/77; PULSE 97; TEMP 100.2
--- NOTE | 2018-02-19 12:17 | DS ---
[facility] Detox Discharge Summary Admission Date: 02/14/18 Discharge Date: 02/19/18 - History Present History: Opioid Dependence, Sedative Dependence, MMTP Pertinent Past History: AIDS Asthma Hepatitis C - Physical Exam Results Vital Signs: Vital Signs Temperature 100.2 F H 02/19/18 11:05 Pulse Rate 97 H 02/19/18 11:05 Respiratory Rate 02/19/18 11:05 Blood Pressure 105/77 02/19/18 11:05 O2 Sat by Pulse Oximetry (%) Pertinent Admission Physical Exam Findings: Withdrawal symptoms Laboratory Tests 02/15/18 02/15/18 02/15/18 07:30 07:30 07:30 WBC 5.6 RBC 4.41 Hgb 13.8 Hct 40.0 MCV 90.8 MCH 31.3 MCHC 34.4 RDW 13.2 Plt Count 116 L MPV 10.4 Sodium 141 Potassium 3.7 Chloride 105 Carbon Dioxide 29 Anion Gap 7 L BUN 13 Creatinine 0.7 Creat Clearance w eGFR > 60 Random Glucose 84 D Calcium 8.9 Total Bilirubin 0.7 AST 64 H ALT 116 H Alkaline Phosphatase 87 Total Protein 7.2 Albumin 3.6 Urine Color Urine Appearance Urine pH Ur Specific [place] Urine Protein Urine Glucose (UA) Urine Ketones Urine Blood Urine Nitrite Urine Bilirubin Urine Urobilinogen Ur Leukocyte Esterase RPR Titer Nonreactive 02/15/18 11:50 WBC RBC Hgb Hct MCV MCH MCHC RDW Plt Count MPV Sodium Potassium Chloride Carbon Dioxide Anion Gap BUN Creatinine Creat Clearance w eGFR Random Glucose Calcium Total Bilirubin AST ALT Alkaline Phosphatase Total Protein Albumin Urine Color Dkyellow Urine Appearance Clear Urine pH 5.0 Ur Specific [place] 1.023 Urine Protein Negative Urine Glucose (UA) Negative Urine Ketones Negative Urine Blood Negative Urine Nitrite Negative Urine Bilirubin Negative Urine Urobilinogen 4.0 e.u/dl Ur Leukocyte Esterase Negative RPR Titer Labs reviewed - Treatment Hospital Course: Detox Protocol Followed, Detoxed Safely, Responded well, Discharged Condition Good, Rehab Referral Accepted - Medication Discharge Medications: Ambulatory Orders Citalopram Hydrobromide [Celexa -] 20 mg PO DAILY #30 tablet 08/24/13 Quetiapine Fumarate [Seroquel -] 25 mg PO HS #30 tablet 08/24/13 Albuterol Sulfate Inhaler - [Ventolin HFA Inhaler -] 2 inh IH Q4H PRN #1 inh 04/30 Ranitidine [Zantac -] 150 mg PO BID #60 tablet 08/27/13 Abacavir/Dolutegravir/Lamivudi [Triumeq Tablet] 1 each PO DAILY 03/27/17 - Diagnosis (1) Nicotine dependence Current Visit: Yes Status: Acute Qualifiers: Nicotine product type: cigarettes Substance use status: in withdrawal Qualified Code(s): F17.213 - Nicotine dependence, cigarettes, with withdrawal (2) Sedative, hypnotic or anxiolytic dependence with withdrawal, uncomplicated Current Visit: Yes Status: Acute (3) Acquired immune deficiency syndrome (AIDS) Current Visit: Yes Status: Chronic (4) Asthma Current Visit: Yes Status: Chronic (5) Hepatitis C carrier Current Visit: Yes Status: Chronic (6) Methadone maintenance therapy patient Current Visit: Yes Status: Chronic (7) Opioid dependence on agonist therapy Current Visit: Yes Status: Acute - AMA Did Patient Leave Against Medical Advice: No (F/U with PCP post rehab)
== END 2018-02-19 13:28 | disposition other institution (70) | DRG 773 ==
LOC: YASAS 18:36 → Y3N 19:43
PROVIDERS: ADMIT Surgery; ATTEND Surgery
PROC: HZ2ZZZZ Detoxification Services for Substance Abuse Treatment (ICD-10-PCS; principal; 2018-02-14)
DX: F13.230 Sedative, hypnotic or anxiolytic dependence with withdrawal, uncomplicated (principal); F11.20 Opioid dependence, uncomplicated; F17.213 Nicotine dependence, cigarettes, with withdrawal; B20 Human immunodeficiency virus [HIV] disease; J45.909 Unspecified asthma, uncomplicated; B18.2 Chronic viral hepatitis C; Z91.5 Personal history of self-harm
CPT/HCPCS: 36415; 80053; 81003; 85027; 86593; 93005; 93010

== ENCOUNTER 2018-05-24 12:20 | Inpatient (IN) | payer OTHER ==
[2018-05-24 15:32] VITALS: BMI 33.3
--- NOTE | 2018-05-24 17:06 | HP ---
CIWA Score Nausea/Vomitin-No Nausea/No Vomiting Muscle Tremors: 2 Anxiety: 3 Agitation: 2 Paroxysmal Sweats: 2 Orientation: 0-Oriented Tacttile Disturbances: 1-Very Mild Itch/Numbness Auditory Disturbances: 0-None Visual Disturbances: 0-None Headache: 2-Mild CIWA-Ar Total Score: 12 - Admission Criteria OASAS Guidelines: Admission for Medically Managed Detox: Requires at least one of the followin. CIWA greater than 12 2. Seizures within the past 24 hours 3. Delirium tremens within the past 24 hours 4. Hallucinations within the past 24 hours 5. Acute intervention needed for co occurring medical disorder 6. Acute intervention needed for co occurring psychiatric disorder 7. Severe withdrawal that cannot be handled at a lower level of care (continued vomiting, continued diarrhea, abnormal vital signs) requiring intravenous medication and/or fluids 8. Patient presents the following: CIWA greater than 12 Admission Criteria Met: Admission criteria met Admission ROS BHS - HPI Chief Complaint: " I want to get clean " benzo withdrawal symptoms Allergies/Adverse Reactions: Allergies Allergy/AdvReac Type Severity Reaction Status Date / Time No Known Allergies Allergy Verified 02/14/18 19:35 History of Present Illness: 38 yo male with long history of xanax, cocaine, (IV) heroin dependence is here seeking detox, this is is one of multiple admissions. Last Detox and rehab [facility] 02/14/18 -03/01/18. [facility] [phone], on methadone 40 mg, last medicated today. PMHX: HIV + , Hep C (treated), asthma. Denies any psychiatric dx. Longest period of sobriety two years. Reports hx of overdose x2 with last episode ten years ago. Denies hx of seizures. Denies any legal troubles at this time. Exam Limitations: No Limitations - Ebola screening Have you traveled outside of the country in the last 21 days: No Have you had contact with anyone from an Ebola affected area: No Have you been sick,other than usual withdrawal symptoms: No Do you have a fever: No - Review of Systems Constitutional: Chills, Loss of Appetite, Changes in sleep EENT: reports: No Symptoms Reported Respiratory: reports: See HPI, SOB with Exertion Cardiac: reports: No Symptoms Reported GI: reports: Constipated (last bm yesterday), Poor Appetite, Poor Fluid Intake, Indigestion : reports: No Symptoms Reported Musculoskeletal: reports: Back Pain Integumentary: reports: No Symptoms Reported Neuro: reports: Headache Endocrine: reports: Increased Thirst Hematology: reports: See HPI Psychiatric: reports: Orientated x3, Anxious Other Systems: Reviewed and Negative Patient History - Patient Medical History Hx Anemia: No Hx Asthma: Yes (on albuterol IH ) Hx Chronic Obstructive Pulmonary Disease (COPD): No Hx Cancer: No Hx Cardiac Disorders: No Hx Congestive Heart Failure: No Hx Hypertension: No Hx Hypercholesterolemia: No Hx Pacemaker: No HX Cerebrovascular Accident: No Hx Seizures: No Hx Dementia: No Hx Diabetes: No Hx Gastrointestinal Disorders: No Hx Liver Disease: No Hx Genitourinary Disorders: No Hx Sexually Transmitted Disorders: No Hx Renal Disease (ESRD): No Hx Thyroid Disease: No Hx Human Immunodeficiency Virus (HIV): Yes (on Triumeq) Hx Hepatitis C: Yes (COMPLETED TXMENT) Hx Depression: Yes Hx Suicide Attempt: No Hx Bipolar Disorder: No Hx Schizophrenia: No - Patient Surgical History Past Surgical History: No Hx Neurologic Surgery: No Hx Cataract Extraction: No Hx Cardiac Surgery: No Hx Lung Surgery: No Hx Breast Surgery: No Hx Breast Biopsy: No Hx Abdominal Surgery: No Hx Appendectomy: No Hx Cholecystectomy: No Hx Genitourinary Surgery: No Hx Section: No Hx Orthopedic Surgery: No Anesthesia Reaction: No - PPD History Previous Implant?: No Documented Results: Negative w/proof Date: 12/30/17 Results: 0 mm PPD to be Administered?: No - Smoking Cessation Smoking history: Current every day smoker Have you smoked in the past 12 months: Yes Aproximately how many cigarettes per day: 8 Cigars Per Day: 0 Hx Chewing Tobacco Use: No Initiated information on smoking cessation: Yes 'Breaking Loose' booklet given: 05/24/18 - Substance & Tx. History Hx Alcohol Use: No Hx Substance Use: Yes Substance Use Type: Cocaine, Heroin, Tranquilizers Hx Substance Use Treatment: Yes (Last Detox and rehab [facility] 02/14/18 -03/01/18) - Substances Abused Alprazolam (Xanax) Route: Oral Frequency: Daily Amount used: 5 x 2 mg Age of first use: 14 Date of Last Use: 05/24/18 Heroin Route: Injection Frequency: Daily Amount used: 2 bags Age of first use: 11 Date of Last Use: 05/24/18 Cocaine Route: Injection Frequency: Daily Amount used: 1 bag Age of first use: 10 Date of Last Use: 05/24/18 Family Disease History - Family Disease History Family Disease History: Diabetes: Grandparent, [place]: Mother (leukemia) Admission Physical Exam [facility] - Vital Signs Vital Signs: Vital Signs - 24 hr 05/24/18 15:30 Temperature 96.8 F L Pulse Rate 80 Respiratory 20 Rate Blood Pressure 104/70 - Physical General Appearance: Yes: Appropriately Dressed, Mild Distress, Obese, Sweating, Anxious HEENTM: Yes: EOMI, Hearing grossly Normal, Normal ENT Inspection, Normocephalic , Normal Voice, SHELBY, Pharynx Normal, Tm's normal Respiratory: Yes: Chest Non-Tender, Lungs Clear, Normal Breath Sounds, No Respiratory Distress, No Accessory Muscle Use Neck: Yes: Within Normal Limits Breast: Yes: Breast Exam Deferred Cardiology: Yes: Regular Rhythm, Regular Rate Abdominal: Yes: Normal Bowel Sounds, Non Tender, Soft, Protuberent Genitourinary: Yes: Within Normal Limits Back: Yes: Normal Inspection Musculoskeletal: Yes: full range of Motion, Gait Steady, Pelvis Stable, Back pain Extremities: Yes: Normal Capillary Refill, Normal Inspection, Normal Range of Motion, Non-Tender Neurological: Yes: construction project administrator II-XII NML intact, Fully Oriented, Alert, Motor Strength 5/5, Depressed Affect Integumentary: Yes: Normal Color, Warm, Diaphoresis, Track Philip (right hand, no infection present), Other Lymphatic: Yes: Within Normal Limits - Diagnostic (1) HIV (human immunodeficiency virus infection) Current Visit: Yes Status: Chronic (2) Cocaine dependence Current Visit: Yes Status: Acute (3) Sedative, hypnotic or anxiolytic dependence with withdrawal, uncomplicated Current Visit: Yes Status: Acute (4) Asthma Current Visit: Yes Status: Chronic (5) Nicotine dependence Current Visit: Yes Status: Chronic Qualifiers: Nicotine product type: cigarettes (6) Opioid dependence on agonist therapy Current Visit: Yes Status: Chronic Comment: [facility] METHADONE 30 MG Cleared for Admission [facility] - Detox or Rehab [facility] Level of Care: Medically Managed Detox Regimen/Protocol: Valium [facility] Breath Alcohol Content Breath Alcohol Content: 0 Urine Drug Screen - Results Drug Screen Negative: No Urine Drug Screen Results: LOS-Cocaine, OPI-Opiates, BZO-Benzodiazepines, MTD- Methadone, OXY-Oxycodone
[2018-05-24] MEDS ORDERED: ACETAMINOPHEN 325 MG TABLET (FP) PO PRN (17:28)
[2018-05-24] MEDS ORDERED: MAG HYDROX/AL HYDROX/SIMETH 30 ML UNIT-DOSE CUP PO PRN (17:28)
[2018-05-24] MEDS ORDERED: IBUPROFEN 400 MG TABLET (FP) PO PRN (17:28)
[2018-05-24] MEDS ORDERED: LOPERAMIDE HCL 2 MG CAPSULE PO PRN (17:28)
[2018-05-24] MEDS ORDERED: MAGNESIUM CITRATE 300 ML BOTTLE PO PRN (17:28)
[2018-05-24] MEDS ORDERED: P-EPHED 60MG/TRIPROLIDI 2.5MG TABLET PO PRN (17:28)
[2018-05-24] MEDS ORDERED: MAGNESIUM HYDROX 2400MG/30ML ORAL SUSPENSION 30 ML CUP PO PRN (17:28)
[2018-05-24] MEDS ORDERED: MENTHOL/PHENOL 1 EACH UD MM PRN (17:28)
[2018-05-24] MEDS ORDERED: ALBUTEROL SO4 8 GM HFA INHALER IH PRN (17:40)
[2018-05-24] MEDS ORDERED: ALBUTEROL SO4 0.083% IH SOL 2.5 MG/3 ML VIAL.NEB. NEB PRN (17:41)
[2018-05-24] MEDS ORDERED: diazePAM 5 MG TABLET PO ONE (19:15)
[2018-05-24] MEDS ORDERED: MELATONIN 5 MG TABLETS PO PRN (22:00)
[2018-05-24] MEDS: THIAMINE HCL 100 MG TABLET (FP) PO SCH (22:10)
[2018-05-24] MEDS: diazePAM 5 MG TABLET PO SCH (22:10)
[2018-05-24 22:56] LABS: URINE APPEARANCE CLEAR; URINE BILIRUBIN NEGATIVE (<2.0 mg/dL); URINE COLOR DKYELLOW; URINE GLUCOSE (UA) NEGATIVE (NEGATIVE); URINE KETONE NEGATIVE (NEGATIVE); URINE LEUK ESTERASE NEGATIVE (NEGATIVE); URINE NITRITE NEGATIVE (NEGATIVE); URINE PROTEIN NEGATIVE (NEGATIVE)
[2018-05-25] MEDS: diazePAM 5 MG TABLET PO SCH ×3 (05:48→22:22)
[2018-05-25] MEDS: guaiFENesin/D-METHORPHAN HB 10 ML UNIT-DOSE CUPS PO PRN ×2 (05:49→22:26)
[2018-05-25] MEDS: diazePAM 5 MG TABLET PO PRN ×2 (09:39→17:13)
[2018-05-25] MEDS: METHADONE HCL 10 MG TABLET PO SCH (09:39)
[2018-05-25] MEDS: PRENATAL VITAMINS W/ FOLIC ACID TABLET (FP) PO SCH (10:38)
[2018-05-25 10:39] LABS: HEMATOCRIT 41.9 % (35.4-49); HEMOGLOBIN 13.9 GM/dL (11.7-16.9); MCH 30.8 pg (25.7-33.7); MCHC 33.3 g/dl (32.0-35.9); MEAN CELL VOLUME 92.8 fl (80-96); MEAN PLT VOLUME 10.5 fl (7.5-11.1); PLATELET COUNT 133 K/MM3 (134-434); RBC 4.52 M/mm3 (4.00-5.60); RDW 15.1 % (11.9-15.9); WHITE BLOOD COUNT 5.6 K/mm3 (4.0-10.0)
[2018-05-25] MEDS: NICOTINE 14 MG/24 HOURS TOPICAL PATCH TD SCH (10:40)
[2018-05-25 11:09] LABS: ALBUMIN 3.5 g/dl (3.4-5.0); ALK PHOS 94 U/L (45-117); ANION GAP 10 MMOL/L (8-16); BILIRUBIN,TOTAL 0.6 mg/dL (0.2-1); BLOOD UREA NITROGEN 16 mg/dL (7-18); CALCIUM 8.8 mg/dL (8.5-10.1); CHLORIDE 104 mmol/L (98-107); CO2 28 mmol/L (21-32); CREATININE 0.8 mg/dL (0.55-1.3); GLUCOSE,RANDOM 111 mg/dL (74-106); POTASSIUM 4.2 mmol/L (3.5-5.1); SGOT/AST 95 U/L (15-37); SGPT/ALT 179 U/L (13-61); SODIUM 141 mmol/L (136-145)
--- NOTE | 2018-05-25 13:44 | CONSULT ---
[facility] Psychiatric Consult - Data Date of interview: 05/25/18 Admission source: [facility] Identifying data: Patient is a 38 year old single male, father of one, unemployed, domiciled (lives with and daugther), and is supported by [employer]. This is one of multiple admissions for patient. Patient admitted to for cocaine, opiate, and benzodiazepine dependence. Substance Abuse History: Smoking Cessation. Smoking history: Current every day smoker. Have you smoked in the past 12 months: Yes. Aproximately how many cigarettes per day: 8. Cigars Per Day: 0. Hx Chewing Tobacco Use: No. Initiated information on smoking cessation: Yes. 'Breaking Loose' booklet given : 05/24/18. - Substance & Tx. History. Hx Alcohol Use: No. Hx Substance Use: Yes. Substance Use Type: Cocaine, Heroin, Tranquilizers. Hx Substance Use Treatment: Yes (Last Detox and rehab [facility] 02/14/18 -03/01/18). - Substances Abused. Alprazolam (Xanax). Route: Oral. Frequency: Daily. Amount used: 5 x 2 mg. Age of first use: 14. Date of Last Use: 05/24/18. Heroin. Route : Injection. Frequency: Daily. Amount used: 2 bags. Age of first use: 11. Date of Last Use: 05/24/18. Cocaine. Route: Injection. Frequency: Daily. Amount used: 1 bag. Age of first use: 10. Date of Last Use: 05/24/18 Medical History: Hepatitis C, bronchial asthma, HIV infection since 2003 and chronic lumbar pain Psychiatric History: Patient denies h/o psychiatric hospitalizations. Most recent outpatient psychiatric care was at the [facility] (last month) in the [place], [place]. He reports taking wellbutrin and gabapentin but he discontinued the medication. Patient has been tried on celexa and seroquel in the past. He was prescribed belsomra 10mg with favorable effect while in rehab in February of 2018. He is currently on methadone maintanence of 30mg daily. Patient reports one suicide attempt as a 14 year old via overdose. At present, he reports difficulty sleeping. Physical/Sexual Abuse/Trauma History: denies. Mental Status Exam - Mental Status Exam Alert and Oriented to: Time, Place, Person Cognitive Function: Good Patient Appearance: Well Groomed Mood: Hopeful Affect: Appropriate Patient Behavior: Appropriate, Cooperative Speech Pattern: Clear, Appropriate Voice Loudness: Normal Thought Process: Intact Thought Disorder: Not Present Hallucinations: Denies Suicidal Ideation: Denies Homicidal Ideation: Denies Insight/Judgement: Poor Sleep: Poorly Appetite: Fair Muscle strength/Tone: Normal Gait/Station: Normal Psychiatric Findings - Problem List ([place] 1, 2,3) (1) Cocaine dependence Current Visit: Yes Status: Acute (2) Sedative, hypnotic or anxiolytic dependence with withdrawal, uncomplicated Current Visit: Yes Status: Acute (3) Opioid dependence on agonist therapy Current Visit: Yes Status: Chronic Comment: [facility] METHADONE 30 MG (4) Substance-induced sleep disorder Current Visit: Yes Status: Acute (5) Nicotine dependence Current Visit: Yes Status: Chronic Qualifiers: Nicotine product type: cigarettes - Initial Treatment Plan Initial Treatment Plan: Psychoeducation provided. Detoxification in progress. Will order belsomra 10mg prn for insomnia. Benefits and side effects discussed. Verbal consent given.
--- NOTE | 2018-05-25 15:20 | PN ---
S CIWA - CIWA Score Nausea/Vomitin Muscle Tremors: 4-Moderate,w/Arms Extend Anxiety: 3 Agitation: 3 Paroxysmal Sweats: 3 Orientation: 0-Oriented Tacttile Disturbances: 1-Very Mild Itch/Numbness Auditory Disturbances: 0-None Visual Disturbances: 0-None Headache: 0-None Present CIWA-Ar Total Score: 16 BHS Progress Note (SOAP) Subjective: Sweating, interrupted sleep Objective: 05/25/18 15:18 Last Vital Signs Temp Pulse Resp BP Pulse Ox 97.0 F L 56 L 18 109/69 05/25/18 13:44 05/25/18 13:44 05/25/18 13:44 05/25/18 13:44 Laboratory Tests 05/24/18 05/25/18 05/25/18 20:17 07:00 07:00 WBC 5.6 RBC 4.52 Hgb 13.9 Hct 41.9 MCV 92.8 MCH 30.8 MCHC 33.3 RDW 15.1 D Plt Count 133 L MPV 10.5 Sodium 141 Potassium 4.2 Chloride 104 Carbon Dioxide 28 Anion Gap 10 BUN 16 Creatinine 0.8 Creat Clearance w eGFR > 60 Random Glucose 111 H Calcium 8.8 Total Bilirubin 0.6 AST 95 H ALT 179 H Alkaline Phosphatase 94 Total Protein 7.0 Albumin 3.5 Urine Color Dkyellow Urine Appearance Clear Urine pH 6.0 Ur Specific [place] 1.026 Urine Protein Negative Urine Glucose (UA) Negative Urine Ketones Negative Urine Blood Negative Urine Nitrite Negative Urine Bilirubin Negative Urine Urobilinogen 2.0 Ur Leukocyte Esterase Negative Labs reviewed Assessment: 05/25/18 15:19 Withdrawal sxs Plan: Continue detox Encouraged PO water intake
[2018-05-25] MEDS: THIAMINE HCL 100 MG TABLET (FP) PO SCH (22:22)
[2018-05-25] MEDS: SUVOREXANT 10 MG TABLET PO PRN (22:26)
[2018-05-26] MEDS: METHADONE HCL 10 MG TABLET PO SCH (05:22)
[2018-05-26] MEDS: diazePAM 5 MG TABLET PO PRN ×3 (08:28→17:06)
[2018-05-26] MEDS: NICOTINE POLACRILEX 2 MG GUM BC PRN ×2 (10:18→21:06)
[2018-05-26] MEDS: PRENATAL VITAMINS W/ FOLIC ACID TABLET (FP) PO SCH (10:18)
[2018-05-26] MEDS: NICOTINE 14 MG/24 HOURS TOPICAL PATCH TD SCH (10:19)
[2018-05-26] MEDS: diazePAM 5 MG TABLET PO SCH ×2 (10:19→22:16)
--- NOTE | 2018-05-26 17:22 | PN ---
[facility] CIWA - CIWA Score Nausea/Vomitin-Mild Nausea/No Vomiting Muscle Tremors: 3 Anxiety: 3 Agitation: 3 Paroxysmal Sweats: 2 Orientation: 0-Oriented Tacttile Disturbances: 0-None Auditory Disturbances: 0-None Visual Disturbances: 0-None Headache: 2-Mild CIWA-Ar Total Score: 14 [facility] Progress Note (SOAP) Subjective: Headache, interrupted sleep, anxious Objective: 05/26/18 17:20 Last Vital Signs Temp Pulse Resp BP Pulse Ox 97.0 F L 86 18 99/75 05/26/18 15:50 05/26/18 15:50 05/26/18 15:50 05/26/18 15:50 Laboratory Tests 05/24/18 05/25/18 05/25/18 20:17 07:00 07:00 WBC 5.6 RBC 4.52 Hgb 13.9 Hct 41.9 MCV 92.8 MCH 30.8 MCHC 33.3 RDW 15.1 D Plt Count 133 L MPV 10.5 Sodium 141 Potassium 4.2 Chloride 104 Carbon Dioxide 28 Anion Gap 10 BUN 16 Creatinine 0.8 Creat Clearance w eGFR > 60 Random Glucose 111 H Calcium 8.8 Total Bilirubin 0.6 AST 95 H ALT 179 H Alkaline Phosphatase 94 Total Protein 7.0 Albumin 3.5 Urine Color Dkyellow Urine Appearance Clear Urine pH 6.0 Ur Specific [place] 1.026 Urine Protein Negative Urine Glucose (UA) Negative Urine Ketones Negative Urine Blood Negative Urine Nitrite Negative Urine Bilirubin Negative Urine Urobilinogen 2.0 Ur Leukocyte Esterase Negative RPR Titer 05/25/18 07:00 WBC RBC Hgb Hct MCV MCH MCHC RDW Plt Count MPV Sodium Potassium Chloride Carbon Dioxide Anion Gap BUN Creatinine Creat Clearance w eGFR Random Glucose Calcium Total Bilirubin AST ALT Alkaline Phosphatase Total Protein Albumin Urine Color Urine Appearance Urine pH Ur Specific [place] Urine Protein Urine Glucose (UA) Urine Ketones Urine Blood Urine Nitrite Urine Bilirubin Urine Urobilinogen Ur Leukocyte Esterase RPR Titer Nonreactive Labs reviewed Assessment: 05/26/18 17:21 Withdrawal sxs Plan: Continue detox Encouraged PO water intake
[2018-05-26] MEDS: THIAMINE HCL 100 MG TABLET (FP) PO SCH (22:16)
[2018-05-26] MEDS: SUVOREXANT 10 MG TABLET PO PRN (22:17)
[2018-05-27] MEDS: METHADONE HCL 10 MG TABLET PO SCH (05:47)
[2018-05-27] MEDS: diazePAM 5 MG TABLET PO PRN ×2 (05:49→17:03)
[2018-05-27] MEDS: NICOTINE 14 MG/24 HOURS TOPICAL PATCH TD SCH (10:22)
[2018-05-27] MEDS: PRENATAL VITAMINS W/ FOLIC ACID TABLET (FP) PO SCH (10:22)
[2018-05-27] MEDS: NICOTINE POLACRILEX 2 MG GUM BC PRN (10:22)
[2018-05-27] MEDS: diazePAM 5 MG TABLET PO SCH ×2 (10:22→22:18)
--- NOTE | 2018-05-27 12:29 | PN ---
BHS Progress Note (SOAP) Subjective: PT IS ALERT O X 3. REPORTS SLIGHT ANXIETY,INTERMITTENT SLEEP OTHERWISE DETOX PROCEEDING WELL. READING IN BED DURING ROUNDS. Objective: 05/27/18 12:28 Vital Signs 05/27/18 05/27/18 06:20 11:04 Temperature 97.3 F L 98.1 F Pulse Rate 61 83 Respiratory 18 18 Rate Blood Pressure 98/61 96/73 Laboratory Tests 05/24/18 05/25/18 05/25/18 20:17 07:00 07:00 WBC 5.6 RBC 4.52 Hgb 13.9 Hct 41.9 MCV 92.8 MCH 30.8 MCHC 33.3 RDW 15.1 D Plt Count 133 L MPV 10.5 Sodium 141 Potassium 4.2 Chloride 104 Carbon Dioxide 28 Anion Gap 10 BUN 16 Creatinine 0.8 Creat Clearance w eGFR > 60 Random Glucose 111 H Calcium 8.8 Total Bilirubin 0.6 AST 95 H ALT 179 H Alkaline Phosphatase 94 Total Protein 7.0 Albumin 3.5 Urine Color Dkyellow Urine Appearance Clear Urine pH 6.0 Ur Specific [place] 1.026 Urine Protein Negative Urine Glucose (UA) Negative Urine Ketones Negative Urine Blood Negative Urine Nitrite Negative Urine Bilirubin Negative Urine Urobilinogen 2.0 Ur Leukocyte Esterase Negative RPR Titer 05/25/18 07:00 WBC RBC Hgb Hct MCV MCH MCHC RDW Plt Count MPV Sodium Potassium Chloride Carbon Dioxide Anion Gap BUN Creatinine Creat Clearance w eGFR Random Glucose Calcium Total Bilirubin AST ALT Alkaline Phosphatase Total Protein Albumin Urine Color Urine Appearance Urine pH Ur Specific [place] Urine Protein Urine Glucose (UA) Urine Ketones Urine Blood Urine Nitrite Urine Bilirubin Urine Urobilinogen Ur Leukocyte Esterase RPR Titer Nonreactive Assessment: 05/27/18 12:28 WITHDRAWAL SX Plan: CONTINUE DETOX ENCOURAGED INCREASE PO FLUIDS
[2018-05-27] MEDS: THIAMINE HCL 100 MG TABLET (FP) PO SCH (22:18)
[2018-05-27] MEDS: SUVOREXANT 10 MG TABLET PO PRN (22:20)
[2018-05-28] MEDS: METHADONE HCL 10 MG TABLET PO SCH (06:01)
[2018-05-28 06:41] VITALS: BP 98/69; PULSE 59; TEMP 97.4
[2018-05-28] MEDS: PRENATAL VITAMINS W/ FOLIC ACID TABLET (FP) PO SCH (09:27)
[2018-05-28] MEDS ORDERED: diazePAM 5 MG TABLET PO SCH (10:00)
--- NOTE | 2018-05-28 18:02 | DS ---
[facility] Detox Discharge Summary Admission Date: 05/24/18 Discharge Date: 05/28/18 - History Present History: Cocaine Dependence, Opioid Dependence, Sedative Dependence Additional Comments: Patient discharged today in nad. He denied any complaints. Pertinent Past History: Asthma HIV Nicotine - Physical Exam Results Vital Signs: Vital Signs Temperature 97.4 F L 05/28/18 06:41 Pulse Rate 59 L 05/28/18 06:41 Respiratory Rate 18 05/28/18 06:41 Blood Pressure 98/69 05/28/18 06:41 O2 Sat by Pulse Oximetry (%) Pertinent Admission Physical Exam Findings: Withdrawal sxs Laboratory Tests 05/24/18 05/25/18 05/25/18 20:17 07:00 07:00 WBC 5.6 RBC 4.52 Hgb 13.9 Hct 41.9 MCV 92.8 MCH 30.8 MCHC 33.3 RDW 15.1 D Plt Count 133 L MPV 10.5 Sodium 141 Potassium 4.2 Chloride 104 Carbon Dioxide 28 Anion Gap 10 BUN 16 Creatinine 0.8 Creat Clearance w eGFR > 60 Random Glucose 111 H Calcium 8.8 Total Bilirubin 0.6 AST 95 H ALT 179 H Alkaline Phosphatase 94 Total Protein 7.0 Albumin 3.5 Urine Color Dkyellow Urine Appearance Clear Urine pH 6.0 Ur Specific [place] 1.026 Urine Protein Negative Urine Glucose (UA) Negative Urine Ketones Negative Urine Blood Negative Urine Nitrite Negative Urine Bilirubin Negative Urine Urobilinogen 2.0 Ur Leukocyte Esterase Negative RPR Titer 05/25/18 07:00 WBC RBC Hgb Hct MCV MCH MCHC RDW Plt Count MPV Sodium Potassium Chloride Carbon Dioxide Anion Gap BUN Creatinine Creat Clearance w eGFR Random Glucose Calcium Total Bilirubin AST ALT Alkaline Phosphatase Total Protein Albumin Urine Color Urine Appearance Urine pH Ur Specific [place] Urine Protein Urine Glucose (UA) Urine Ketones Urine Blood Urine Nitrite Urine Bilirubin Urine Urobilinogen Ur Leukocyte Esterase RPR Titer Nonreactive Labs reviewed - Treatment Hospital Course: Detox Protocol Followed, Detoxed Safely, Responded well, Discharged Condition Good - Medication Discharge Medications: Ambulatory Orders Quetiapine Fumarate [Seroquel -] 25 mg PO HS #30 tablet 08/24/13 Abacavir/Dolutegravir/Lamivudi [Triumeq Tablet] 1 each PO DAILY 03/27/17 Albuterol Sulfate Inhaler - [Ventolin HFA Inhaler -] 2 puff IH Q4H PRN #1 inhaler 02/28/18 - Diagnosis (1) Cocaine dependence Status: Acute (2) Sedative, hypnotic or anxiolytic dependence with withdrawal, uncomplicated Status: Acute (3) Asthma Status: Chronic (4) HIV (human immunodeficiency virus infection) Status: Chronic (5) Nicotine dependence Status: Acute Qualifiers: Nicotine product type: cigarettes Substance use status: in withdrawal Qualified Code(s): F17.213 - Nicotine dependence, cigarettes, with withdrawal (6) Opioid dependence on agonist therapy Status: Acute - AMA Did Patient Leave Against Medical Advice: No (F/U with your PCP within 1-2 weeks )
== END 2018-05-28 09:17 | disposition home or self-care (01) | DRG 773 ==
LOC: YASAS 12:20 → Y3N 18:46
PROC: HZ2ZZZZ Detoxification Services for Substance Abuse Treatment (ICD-10-PCS; principal; 2018-05-24)
DX: F13.230 Sedative, hypnotic or anxiolytic dependence with withdrawal, uncomplicated (principal); F11.20 Opioid dependence, uncomplicated; F14.20 Cocaine dependence, uncomplicated; F17.213 Nicotine dependence, cigarettes, with withdrawal; J45.909 Unspecified asthma, uncomplicated; B20 Human immunodeficiency virus [HIV] disease; B18.2 Chronic viral hepatitis C; E66.9 Obesity, unspecified; Z68.33 Body mass index [BMI] 33.0-33.9, adult
CPT/HCPCS: 36415; 80053; 81003; 85027; 86593

== ENCOUNTER 2020-01-15 18:31 | Inpatient (IN) | payer OTHER ==
--- NOTE | 2020-01-15 20:26 | HP ---
COWS - Scale Resting Pulse: 1= [place] 81-100 Sweatin=Flushed/Facial Moisture Restless Observation: 1= Difficult to Sit Still Pupil Size: 1= Pupils >than Normal Bone or Joint Aches: 2= Severe Diffuse Aches Runny Nose/ Eye Tearin= None GI Upset > 30mins: 2= Nausea/Diarrhea (nausea, no vomiting) Tremor Observation: 2= Slight Tremor Visible Yawning Observation: 0= None Anxiety or Irritability: 2=Irritable/Anxious Goose Flesh Skin: 0=Smooth Skin COWS Score: 13 CIWA Score - Admission Criteria [facility]ASAS Guidelines: Admission for Medically Managed Detox: Requires at least one of the followin. CIWA greater than 12 2. Seizures within the past 24 hours 3. Delirium tremens within the past 24 hours 4. Hallucinations within the past 24 hours 5. Acute intervention needed for co occurring medical disorder 6. Acute intervention needed for co occurring psychiatric disorder 7. Severe withdrawal that cannot be handled at a lower level of care (continued vomiting, continued diarrhea, abnormal vital signs) requiring intravenous medication and/or fluids 8. Admitting History and Physical - Smoking History Smoking history: Current every day smoker Have you smoked in the past 12 months: Yes Aproximately how many cigarettes per day: 8 - Alcohol/Substance Use Hx Alcohol Use: No Admission ROS [facility] Chief Complaint: Heroin withdrawal symptoms Allergies/Adverse Reactions: Allergies Allergy/AdvReac Type Severity Reaction Status Date / Time No Known Allergies Allergy Verified 01/15/20 22:30 History of Present Illness: 39 years old male with a long history of intravenous heroin dependence (since age 14 years ) is seeking admission to detox. Patient is well known to the facility since May 2010 and reports a year of sobriety. Patient reports use of 5 bags of heroin daily and his last admission to [facility] was for the period 05/24/2018-05/28/2018. He reports medical history of asthma, HIV +, Hep C (treated) and psych. history of insomnia and anxiety. He reports suicide attempt at age 14 and denies suicidal ideation at this time. Patient is unemployed, lives with his family and denies legal issues. Patient's urine was positive for Fentanyl, oxycodone and methadone but he denies use of the substances stating that his heroin may have been adulterated with those drugs. Confidential Drug Utilization Report Search Terms: katlyn Walker, 1980Search Date: 01/15/2020 20:23:51 PM The Drug Utilization Report below displays all of the controlled substance prescriptions, if any, that your patient has filled in the last twelve months. The information displayed on this report is compiled from pharmacy submissions to the Department, and accurately reflects the information as submitted by the pharmacies. Others' Prescriptions Patient Name: Katlyn Truong Date: 1980 Address: [address] [place] [id number]: Male Rx Written Rx Dispensed Drug Quantity Days Supply Prescriber Name Payment Method Dispenser 12/18/2019 12/18/2019 clonazepam 0.5 mg tablet 30 30 Kirti Mcknight MD [facility] 10/30/2019 10/30/2019 clonazepam 0.5 mg tablet 30 30 Kirti Mcknight MD [facility] * - Drugs marked with an asterisk are compound drugs. If the compound drug is made up of more than one controlled substance, then each controlled substance will be a separate row in the table. Exam Limitations: No Limitations - Ebola screening Have you traveled outside of the country in the last 21 days: No Have you had contact with anyone from an Ebola affected area: No Have you been sick,other than usual withdrawal symptoms: No Do you have a fever: No - Review of Systems Constitutional: Chills, Malaise, Night Sweats, Changes in sleep EENT: reports: No Symptoms Reported Respiratory: reports: No Symptoms reported Cardiac: reports: No Symptoms Reported GI: reports: Nausea, Poor Fluid Intake, Abdominal cramping : reports: No Symptoms Reported Musculoskeletal: reports: Back Pain Integumentary: reports: Dryness, Flushing Neuro: reports: Tremors Endocrine: reports: No Symptoms Reported Hematology: reports: No Symptoms Reported Psychiatric: reports: Mood/Affect Appropiate, Orientated x3, Anxious Other Systems: Reviewed and Negative Patient History - Patient Medical History Hx Anemia: No Hx Asthma: Yes (Albuterol) Hx Chronic Obstructive Pulmonary Disease (COPD): No Hx Cancer: No Hx Cardiac Disorders: No Hx Congestive Heart Failure: No Hx Hypertension: No Hx Hypercholesterolemia: No Hx Pacemaker: No HX Cerebrovascular Accident: No Hx Seizures: No Hx Dementia: No Hx Diabetes: No Hx Gastrointestinal Disorders: No Hx Liver Disease: No Hx Genitourinary Disorders: No Hx Sexually Transmitted Disorders: Yes (HIV+) Hx Renal Disease (ESRD): No Hx Thyroid Disease: No Hx Human Immunodeficiency Virus (HIV): Yes (Triumeq) Hx Hepatitis C: Yes (Treated) Hx Depression: No Hx Suicide Attempt: Yes (Overdosed at age 14 yrs old, denies suicidal ideation at this time) Hx Bipolar Disorder: No Hx Schizophrenia: No Other Medical History: Anxiety, Insomnia - Patient Surgical History Past Surgical History: No Anesthesia Reaction: No - PPD History Previous Implant?: Yes Documented Results: Negative w/proof Implanted On Prior [facility] Admission?: Yes Date: 12/30/17 Results: 0 mm PPD to be Administered?: Yes - Reproductive History Patient is a Female of Child Bearing Age (11 -55 yrs old): No (Male) - Smoking Cessation Smoking history: Former smoker Have you smoked in the past 12 months: No Aproximately how many cigarettes per day: 0 Cigars Per Day: 0 Hx Chewing Tobacco Use: No Initiated information on smoking cessation: No - Substance & Tx. History Hx Alcohol Use: No Hx Substance Use: Yes Substance Use Type: Heroin Hx Substance Use Treatment: Yes ([facility]) - Substances abused Heroin Substance route: Injection Frequency: Daily Amount used: 5 bags Age of first use: 14 Date of last use: 01/15/20 Cocaine Substance route: Injection Frequency: Daily Amount used: $50 Age of first use: 11 Date of last use: 01/15/20 Admission Physical Exam [facility] - Physical General Appearance: Yes: Moderate Distress, Tremorous, Sweating, Anxious HEENTM: Yes: Within Normal Limits Respiratory: Yes: Lungs Clear, Normal Breath Sounds, No Respiratory Distress Neck: Yes: Within Normal Limits Breast: Yes: Breast Exam Deferred Cardiology: Yes: Regular Rhythm, Regular Rate Abdominal: Yes: Normal Bowel Sounds, Soft Genitourinary: Yes: Within Normal Limits Back: Yes: Normal Inspection Musculoskeletal: Yes: Back pain Extremities: Yes: Tremors Neurological: Yes: Within Normal Limits Integumentary: Yes: Warm Lymphatic: Yes: Within Normal Limits - Diagnostic (1) Opioid dependence with withdrawal Current Visit: Yes Status: Acute (2) Cocaine dependence Current Visit: Yes Status: Chronic (3) Anxiety disorder Current Visit: Yes Status: Chronic (4) Asthma Current Visit: Yes Status: Chronic (5) HIV (human immunodeficiency virus infection) Current Visit: Yes Status: Chronic Qualifiers: HIV symptom status: unspecified Qualified Code(s): B20 - Human immunodeficiency virus [HIV] disease Cleared for Admission S - Detox or Rehab [facility] Level of Care: Medically Managed Detox Regimen/Protocol: Methadone Breathalyzer - Breathalyzer Breathalyzer: 0 Urine Drug Screen - Test Device Lot number: [id number] Expiration date: 03/17/21 - Control Is test valid?: Yes - Results Drug screen NEGATIVE: No Urine drug screen results: LOS-Cocaine, FEN-Fentanyl, MOP-Opiates, OXY- Oxycodone, MTD-Methadone Inpatient Rehab Admission - Rehab Decision to Admit Inpatient rehab admission?: No
[2020-01-15] MEDS ORDERED: MAGNESIUM HYDROX 2400MG/30ML ORAL SUSPENSION 30 ML CUP PO PRN (21:13)
[2020-01-15] MEDS ORDERED: cloNIDine HCL 0.1 MG TABLET PO PRN (21:13)
[2020-01-15] MEDS ORDERED: MENTHOL/PHENOL 1 EACH UD MM PRN (21:13)
[2020-01-15] MEDS ORDERED: MAG HYDROX/AL HYDROX/SIMETH 30 ML UNIT-DOSE CUP PO PRN (21:13)
[2020-01-15] MEDS ORDERED: BISMUTH SUBSALICYLATE 524 MG/30 ML UD PO PRN (21:13)
[2020-01-15] MEDS ORDERED: ACETAMINOPHEN 325 MG TABLET (FP) PO PRN ×2 (21:13)
[2020-01-15] MEDS ORDERED: MAGNESIUM CITRATE 300 ML BOTTLE PO PRN (21:13)
[2020-01-15] MEDS ORDERED: IBUPROFEN 400 MG TABLET (FP) PO PRN (21:13)
[2020-01-15] MEDS ORDERED: ALBUTEROL SO4 HFA INHALER IH PRN (21:16)
[2020-01-15] MEDS ORDERED: ONDANSETRON *ODT* 4 MG TABLET SL ONE (22:30)
[2020-01-15] MEDS ORDERED: METHADONE HCL 10 MG TABLET (FOR DETOX USE ONLY) PO ONE (22:30)
[2020-01-15 22:55] VITALS: BMI 32.1
[2020-01-15] MEDS: MELATONIN 5 MG TABLETS PO SCH (23:42)
[2020-01-15] MEDS: THIAMINE HCL 100 MG TABLET (FP) PO SCH (23:42)
[2020-01-16] MEDS ORDERED: METHADONE HCL 5 MG TABLET (FOR DETOX USE ONLY) ONE (08:57)
[2020-01-16] MEDS ORDERED: METHADONE HCL 10 MG TABLET (FOR DETOX USE ONLY) ONE (08:57)
[2020-01-16] MEDS: PRENATAL VITAMINS W/ FOLIC ACID TABLET (FP) PO SCH (09:58)
[2020-01-16] MEDS: METHOCARBAMOL 500 MG TABLET PO PRN ×2 (09:59→21:18)
[2020-01-16] MEDS: hydrOXYzine PAMOATE 25 MG CAPSULE (FP) PO PRN ×2 (09:59→21:18)
[2020-01-16] MEDS: ABACAVIR/DOLUTEGRAVIR/LAMIVUDI (TRIUMEQ) TABLET -NF PO SCH (09:59)
[2020-01-16] MEDS ORDERED: METHADONE (DETOX) 20 MG, METHADONE (DETOX) 5 MG PO ONE (10:00)
--- NOTE | 2020-01-16 10:40 | EKG ---
Test Reason : Blood Pressure : / mmHG Vent. Rate : 069 BPM Atrial Rate : 069 BPM P-R Int : 162 ms QRS Dur : 096 ms QT Int : 400 ms P-R-T Axes : 072 049 061 degrees QTc Int : 428 ms NORMAL SINUS RHYTHM NORMAL ECG WHEN COMPARED WITH ECG OF 14-FEB-2018 23:35, NO SIGNIFICANT CHANGE WAS FOUND Confirmed by True Hartley MD ([id number]) on 01/16/2020 10:39:34 AM Referred By: Confirmed By:True Hartley MD
[2020-01-16 10:47] LABS: HEMATOCRIT 39.4 % (35.4-49); HEMOGLOBIN 13.2 GM/dL (11.7-16.9); MCH 29.6 pg (25.7-33.7); MCHC 33.5 g/dl (32.0-35.9); MEAN CELL VOLUME 88.1 fl (80-96); MEAN PLT VOLUME 10.5 fl (7.5-11.1); PLATELET COUNT 106 K/MM3 (134-434); RBC 4.48 M/mm3 (4.00-5.60); RDW 13.6 % (11.9-15.9); WHITE BLOOD COUNT 5.4 K/mm3 (4.0-10.0)
[2020-01-16 11:02] LABS: ALBUMIN 3.7 g/dl (3.4-5.0); BILIRUBIN,TOTAL 0.9 mg/dL (0.2-1); BLOOD UREA NITROGEN 18.8 mg/dL (7-18); CALCIUM 9.1 mg/dL (8.5-10.1); TOT PROT 7.3 g/dl (6.4-8.2)
[2020-01-16 11:09] LABS: CREATININE 0.9 mg/dL (0.55-1.3)
--- NOTE | 2020-01-16 11:46 | PN ---
BHS COWS - Scale Resting Pulse: 1= [place] 81-100 Sweatin= No chills or Flushing Restless Observation: 0= Sits Still Pupil Size: 1= Pupils >than Normal Bone or Joint Aches: 1= Mild Discomfort Runny Nose/ Eye Tearin= Nasal Congestion GI Upset > 30mins: 1= Stomach Cramp Tremor Observation of Outstretched Hands: 2= Slight Tremor Visible Yawning Observation: 1= 1-2x During Session Anxiety or Irritability: 2=Irritable/Anxious Goose Flesh Skin: 0=Smooth Skin COWS Score: 10 BHS Progress Note (SOAP) Subjective: 39 years old male admitted on 01/15/20 for opiate withdrawal sx management treating with methadone detox regiment feeling better today discussing aftercare with staff discussing medication assisted treatment program Objective: 01/16/20 12:26 Vital Signs - 24 hr 01/15/20 01/15/20 01/16/20 22:43 23:30 00:43 Temperature 97.1 F L 97.1 F L Pulse Rate 86 79 Respiratory 18 18 18 Rate Blood Pressure 105/75 111/75 O2 Sat by Pulse 96 Oximetry (%) 01/16/20 01/16/20 01/16/20 03:22 06:12 08:33 Temperature 97.3 F L 97.8 F Pulse Rate 61 81 Respiratory 18 18 18 Rate Blood Pressure 99/57 L 102/72 O2 Sat by Pulse 96 Oximetry (%) Laboratory Tests 01/16/20 01/16/20 07:50 07:50 WBC 5.4 RBC 4.48 Hgb 13.2 Hct 39.4 MCV 88.1 MCH 29.6 MCHC 33.5 RDW 13.6 Plt Count 106 L D MPV 10.5 Sodium 139 Potassium 4.0 Chloride 104 Carbon Dioxide 27 Anion Gap 8 BUN 18.8 H Creatinine 0.9 Est GFR (CKD-EPI)AfAm 122.52 Est GFR (CKD-EPI)NonAf 105.71 Random Glucose 128 H Calcium 9.1 Total Bilirubin 0.9 AST 41 H ALT 72 H Alkaline Phosphatase 73 Total Protein 7.3 Albumin 3.7 glucose serum elevation fasting glucose serum on 01/19/20 01/16/20 12:29 Assessment: 01/16/20 12:30 opiate withdrawal Plan: methadone regiment
--- NOTE | 2020-01-16 12:33 | CONSULT ---
[facility] Psychiatric Consult - Data Date of interview: 01/16/20 Admission source: [facility] Identifying data: Readmission to [address] [place] [address] for this 39 y/o male self- referred for detoxification treatment. REYES issues : heroin, benzodiazepine (clonazepam), cocaine. Patient is , a father of two, domiciled, unemployed and supported on [employer] benefits. Substance Abuse History: Discussed with the patient. REYES profile as follows : Smoking history: Former smoker. Have you smoked in the past 12 months: No. Aproximately how many cigarettes per day: 0. Cigars Per Day: 0. Hx Chewing Tobacco Use: No. Initiated information on smoking cessation: No. - Substance & Tx. History. Hx Alcohol Use: No. Hx Substance Use: Yes. Substance Use Type: Heroin. Hx Substance Use Treatment: Yes ([facility]). - Substances abused. Heroin. Substance route: Injection. Frequency: Daily. Amount used: 5 bags. Age of first use: 14. Date of last use: 01/15/20. Cocaine. Substance route: Injection. Frequency: Daily. Amount used: $50. Age of first use: 11. Date of last use: 01/15/20 Medical History: Medical profile is remarkable for hepatitis C, bronchial asthma and HIV infection since 2003 (on ART medications). Psychiatric History: Patient denies history of psychiatric hospitalizations. He indicates that he is currently followed at the [facility] OPD clinic. " They diagnosed me with Anxiety Disorder and insomnia." Mr Walker states that, over the years, he has been prescribed various medications which include citalopram, seroquel, trazodone, bupropion, gabapentin and other unnamed drugs. No longer on methadone maintenance (used to be a patient at the [facility] in the [place]). Patient endorses a remote history of one suicide attempt (age 14) via overdose with pills. Physical/Sexual Abuse/Trauma History: Patient denies. Additional Comment: Urine drug screen results: LOS-Cocaine, FEN-Fentanyl, MOP- Opiates, OXY-Oxycodone, MTD-Methadone. Noted. Mental Status Exam - Mental Status Exam Alert and Oriented to: Time, Place, Person Cognitive Function: Good Patient Appearance: Well Groomed (tattoo on left side of neck) Mood: Withdrawn, Hopeful Affect: Appropriate, Normal Range Patient Behavior: Fatigued, Appropriate, Cooperative Speech Pattern: Clear, Appropriate Voice Loudness: Normal Thought Process: Intact, Goal Oriented Thought Disorder: Not Present Hallucinations: Denies Suicidal Ideation: Denies Homicidal Ideation: Denies Insight/Judgement: Poor Sleep: Poorly, Difficulty falling asleep (agrees to take melatonin) Appetite: Good Gait/Station: Normal Psychiatric Findings - Problem List ([place] 1, 2,3) (1) Opioid dependence with withdrawal Current Visit: Yes Status: Acute (2) Cocaine dependence Current Visit: Yes Status: Chronic (3) Nicotine dependence Current Visit: Yes Status: Chronic Qualifiers: Nicotine product type: cigarettes Substance use status: in withdrawal Qualified Code(s): F17.213 - Nicotine dependence, cigarettes, with withdrawal (4) Substance induced mood disorder Current Visit: Yes Status: Chronic (5) Insomnia Current Visit: Yes Status: Chronic - Initial Treatment Plan Initial Treatment Plan: Psychoeducation. Support. Sleep hygiene. Detoxification in progress. Patient declines any psychotropic medications with the exception of molecules indicated for ETOH detoxification protocol. " For insomnia, I am willing to take melatonin or benadryl." Side effects/benefits of theses two drugs discusssed with the patient. Informed consent (verbal) granted to MD. Avendano.
[2020-01-16] MEDS: MELATONIN 5 MG TABLETS PO SCH (21:17)
[2020-01-16] MEDS: THIAMINE HCL 100 MG TABLET (FP) PO SCH (21:18)
--- NOTE | 2020-01-17 09:47 | PN ---
BHS COWS - Scale Resting Pulse: 0= [place] 80 or Below Sweatin= Chills/Flushing Restless Observation: 0= Sits Still Pupil Size: 1= Pupils >than Normal Bone or Joint Aches: 1= Mild Discomfort Runny Nose/ Eye Tearin= Nasal Congestion GI Upset > 30mins: 1= Stomach Cramp Tremor Observation of Outstretched Hands: 1= Tremor [place], Not Seen Yawning Observation: 0= None Anxiety or Irritability: 2=Irritable/Anxious Goose Flesh Skin: 0=Smooth Skin COWS Score: 8 BHS Progress Note (SOAP) Subjective: 39 years old male admitted on 01/15/20 for opiate withdrawal sx management treating with methadone detox regiment feeling ok today seen by psychiatrist melatonin or benadryl for insomnia reports poor sleep increase melatonin to 10 mg po hs continue monitoring sleeping pattern related to anxiety and depression discussing aftercare with staff mr moe is willing to go to [facility] or [facility] Objective: 01/17/20 09:50 Vital Signs - 24 hr 01/16/20 01/16/20 01/16/20 13:43 17:03 20:50 Temperature 98 F 97.7 F 97.3 F L Pulse Rate 104 H 72 68 Respiratory 20 18 18 Rate Blood Pressure 123/74 101/73 92/59 L O2 Sat by Pulse 99 98 Oximetry (%) 01/17/20 01/17/20 01/17/20 00:25 03:30 06:31 Temperature 98.0 F Pulse Rate 70 Respiratory 18 16 18 Rate Blood Pressure 104/65 O2 Sat by Pulse 97 Oximetry (%) 01/17/20 08:39 Temperature 97.7 F Pulse Rate 63 Respiratory 18 Rate Blood Pressure 107/63 O2 Sat by Pulse Oximetry (%) Laboratory Tests 01/16/20 01/16/20 01/16/20 07:50 07:50 07:50 WBC 5.4 RBC 4.48 Hgb 13.2 Hct 39.4 MCV 88.1 MCH 29.6 MCHC 33.5 RDW 13.6 Plt Count 106 L D MPV 10.5 Sodium 139 Potassium 4.0 Chloride 104 Carbon Dioxide 27 Anion Gap 8 BUN 18.8 H Creatinine 0.9 Est GFR (CKD-EPI)AfAm 122.52 Est GFR (CKD-EPI)NonAf 105.71 Random Glucose 128 H Calcium 9.1 Total Bilirubin 0.9 AST 41 H ALT 72 H Alkaline Phosphatase 73 Total Protein 7.3 Albumin 3.7 Syphilis Serology Non-reactive 01/17/20 09:51 lab noted glucose elevation encourage weight loss fasting glucose 01/19/20 01/17/20 09:51 Assessment: 01/17/20 09:52 opiate withdrawal Plan: methadone regiment
[2020-01-17] MEDS ORDERED: METHADONE HCL 10 MG TABLET (FOR DETOX USE ONLY) PO ONE (10:00)
[2020-01-17] MEDS: PRENATAL VITAMINS W/ FOLIC ACID TABLET (FP) PO SCH (10:12)
[2020-01-17] MEDS: ABACAVIR/DOLUTEGRAVIR/LAMIVUDI (TRIUMEQ) TABLET -NF PO SCH (10:12)
[2020-01-17] MEDS: THIAMINE HCL 100 MG TABLET (FP) PO SCH (21:43)
[2020-01-17] MEDS: METHOCARBAMOL 500 MG TABLET PO PRN (21:43)
[2020-01-17] MEDS: hydrOXYzine PAMOATE 25 MG CAPSULE (FP) PO PRN (21:45)
[2020-01-17] MEDS: MELATONIN 5 MG TABLETS PO SCH (21:45)
[2020-01-18] MEDS: BICTEGRAV/EMTRICIT/TENOFOV (BIKTARVY) 50-200-25 MG TABLET PO SCH (07:54)
[2020-01-18] MEDS ORDERED: METHADONE HCL 10 MG TABLET (FOR DETOX USE ONLY) ONE (08:49)
[2020-01-18] MEDS ORDERED: METHADONE HCL 5 MG TABLET (FOR DETOX USE ONLY) ONE (08:50)
[2020-01-18] MEDS: PRENATAL VITAMINS W/ FOLIC ACID TABLET (FP) PO SCH (09:59)
[2020-01-18] MEDS ORDERED: METHADONE (DETOX) 10 MG, METHADONE (DETOX) 5 MG PO ONE (10:00)
--- NOTE | 2020-01-18 10:44 | PN ---
[facility] Progress Note (SOAP) Subjective: Feeling well, asking when his d/c date is Objective: 01/18/20 10:42 PE Gnl: WDWN, watching TV with others MS: nl Motor: symmetric limb movement Coord; nl Gait: steady Laboratory Tests 01/16/20 01/16/20 01/16/20 07:50 07:50 07:50 WBC 5.4 RBC 4.48 Hgb 13.2 Hct 39.4 MCV 88.1 MCH 29.6 MCHC 33.5 RDW 13.6 Plt Count 106 L D MPV 10.5 Sodium 139 Potassium 4.0 Chloride 104 Carbon Dioxide 27 Anion Gap 8 BUN 18.8 H Creatinine 0.9 Est GFR (CKD-EPI)AfAm 122.52 Est GFR (CKD-EPI)NonAf 105.71 Random Glucose 128 H Calcium 9.1 Total Bilirubin 0.9 AST 41 H ALT 72 H Alkaline Phosphatase 73 Total Protein 7.3 Albumin 3.7 Syphilis Serology Non-reactive Active Medications Generic Name Dose Route Start Last Admin Trade Name Freq PRN Reason Stop Dose Admin Acetaminophen 650 mg 01/15/20 21:13 Tylenol - PO Q6H PRN PAIN LEVEL 4 - 6 Acetaminophen 650 mg 01/15/20 21:13 Tylenol - PO Q6H PRN FEVER Al Hydroxide/Mg Hydroxide 30 ml 01/15/20 21:13 Mylanta Oral Suspension - PO Q6H PRN DYSPEPSIA Albuterol Sulfate 2 puff 01/15/20 21:16 Ventolin Hfa Inhaler - IH Q4H PRN SHORTNESS OF BREATH Bictegravir/Emtricitabine/Tenofovir 1 each 01/18/20 08:00 01/18/20 07:54 Biktarvy 50-200-25 Mg Tablet PO 1 each DAILY@0800 ARNEL Administration Bismuth Subsalicylate 524 mg 01/15/20 21:13 01/17/20 10:12 Pepto-Bismol - PO 524 mg Q1H PRN Administration DIARRHEA Eucalyptus/Menthol/Phenol/Sorbitol 1 each 01/15/20 21:13 Cepastat Lozenge - MM 01/21/20 21:13 Q4H PRN SORE THROAT Hydroxyzine Pamoate 25 mg 01/15/20 21:13 01/17/20 21:45 Vistaril - PO 01/21/20 21:13 25 mg Q4HWA PRN Administration ANXIETY Ibuprofen 400 mg 01/15/20 21:13 Motrin - PO Q6H PRN PAIN LEVEL 1 - 3 Magnesium Citrate 300 ml 01/15/20 21:13 Citroma - PO Q48H PRN CONSTIPATION Magnesium Hydroxide 30 ml 01/15/20 21:13 Milk Of Magnesia - PO PRN PRN CONSTIPATION Melatonin 10 mg 01/17/20 09:49 01/17/20 21:45 Melatonin PO 10 mg HS ARNEL Administration Methadone HCl 5 mg 01/20/20 06:00 Dolophine - PO 01/20/20 06:01 ONCE@0600 ONE Methadone HCl 10 mg 01/19/20 10:00 Dolophine - PO 01/19/20 10:01 ONCE ONE Methocarbamol 500 mg 01/15/20 21:13 01/17/20 21:43 Robaxin - PO 01/21/20 21:13 500 mg Q6H PRN Administration MUSCLE SPASMS Multivit/Folic Acid/Iron 1 tab 01/16/20 10:00 01/18/20 09:59 Vitamins (Sjr) - PO 1 tab DAILY ARNEL Administration Thiamine HCl 100 mg 01/15/20 22:00 01/17/20 21:43 Vitamin B1 - PO 100 mg HS ARNEL Administration Assessment: 1. Opioid use disorder 2. Asthma 3. HIV 4. Treated Hep C 5. Insomnia 6. on clonazepam 0.5 mg daily/ in [facility] [employer] Plan: 1. Metadone, projected finish 01/19
[2020-01-18] MEDS: MELATONIN 5 MG TABLETS PO SCH (22:17)
[2020-01-18] MEDS: THIAMINE HCL 100 MG TABLET (FP) PO SCH (22:17)
[2020-01-18] MEDS: hydrOXYzine PAMOATE 25 MG CAPSULE (FP) PO PRN (22:18)
[2020-01-19] MEDS: BICTEGRAV/EMTRICIT/TENOFOV (BIKTARVY) 50-200-25 MG TABLET PO SCH (07:59)
[2020-01-19] MEDS ORDERED: METHADONE HCL 10 MG TABLET (FOR DETOX USE ONLY) PO ONE (10:00)
[2020-01-19] MEDS: PRENATAL VITAMINS W/ FOLIC ACID TABLET (FP) PO SCH (10:12)
--- NOTE | 2020-01-19 11:00 | PN ---
BHS COWS - Scale Resting Pulse: 0= [place] 80 or Below Sweatin= No chills or Flushing Restless Observation: 0= Sits Still Pupil Size: 0= Normal to Room Light Bone or Joint Aches: 1= Mild Discomfort Runny Nose/ Eye Tearin= None GI Upset > 30mins: 0= None Tremor Observation of Outstretched Hands: 0= None Yawning Observation: 0= None Anxiety or Irritability: 2=Irritable/Anxious Goose Flesh Skin: 0=Smooth Skin COWS Score: 3 BHS Progress Note (SOAP) Subjective: c/o mild withdrawal symptoms. Objective: 01/19/20 10:58 Vital Signs 01/19/20 01/19/20 01/19/20 03:20 05:33 06:30 Temperature 97.5 F L Pulse Rate 59 L Respiratory 16 20 18 Rate Blood Pressure 111/74 O2 Sat by Pulse 98 Oximetry (%) 01/19/20 08:59 Temperature 97.5 F L Pulse Rate 75 Respiratory 18 Rate Blood Pressure 105/73 O2 Sat by Pulse Oximetry (%) Laboratory Last Values WBC 5.4 K/mm3 (4.0-10.0) 01/16/20 07:50 RBC 4.48 M/mm3 (4.00-5.60) 01/16/20 07:50 Hgb 13.2 GM/dL (11.7-16.9) 01/16/20 07:50 Hct 39.4 % (35.4-49) 01/16/20 07:50 MCV 88.1 fl (80-96) 01/16/20 07:50 MCH 29.6 pg (25.7-33.7) 01/16/20 07:50 MCHC 33.5 g/dl (32.0-35.9) 01/16/20 07:50 RDW 13.6 % (11.9-15.9) 01/16/20 07:50 Plt Count 106 K/MM3 (134-434) L D 01/16/20 07:50 MPV 10.5 fl (7.5-11.1) 01/16/20 07:50 Sodium 139 mmol/L (136-145) 01/16/20 07:50 Potassium 4.0 mmol/L (3.5-5.1) 01/16/20 07:50 Chloride 104 mmol/L (98-107) 01/16/20 07:50 Carbon Dioxide 27 mmol/L (21-32) 01/16/20 07:50 Anion Gap 8 MMOL/L (8-16) 01/16/20 07:50 BUN 18.8 mg/dL (7-18) H 01/16/20 07:50 Creatinine 0.9 mg/dL (0.55-1.3) 01/16/20 07:50 Est GFR (CKD-EPI)AfAm 122.52 01/16/20 07:50 Est GFR (CKD-EPI)NonAf 105.71 01/16/20 07:50 Random Glucose 128 mg/dL (74-106) H 01/16/20 07:50 Fasting Glucose 100 mg/dL (74-106) 01/19/20 07:30 Calcium 9.1 mg/dL (8.5-10.1) 01/16/20 07:50 Total Bilirubin 0.9 mg/dL (0.2-1) 01/16/20 07:50 AST 41 U/L (15-37) H 01/16/20 07:50 ALT 72 U/L (13-61) H 01/16/20 07:50 Alkaline Phosphatase 73 U/L (45-117) 01/16/20 07:50 Total Protein 7.3 g/dl (6.4-8.2) 01/16/20 07:50 Albumin 3.7 g/dl (3.4-5.0) 01/16/20 07:50 Syphilis Serology Non-reactive (NONREACTIVE) 01/16/20 07:50 COVID-19 (DALI) Not detected 01/15/20 22:50 Labs noted. Assessment: 01/19/20 10:59 AOX3, in no acute respiratory distress. Full ROM, ambulating in the unit. Mild Withdrawal symptoms. For d/c tomorrow. Plan: continue detox. D/C in AM.
[2020-01-19] MEDS: THIAMINE HCL 100 MG TABLET (FP) PO SCH (22:20)
[2020-01-19] MEDS: MELATONIN 5 MG TABLETS PO SCH (22:20)
[2020-01-20] MEDS ORDERED: METHADONE HCL 5 MG TABLET (FOR DETOX USE ONLY) PO ONE (06:00)
[2020-01-20] MEDS: BICTEGRAV/EMTRICIT/TENOFOV (BIKTARVY) 50-200-25 MG TABLET PO SCH (07:34)
--- NOTE | 2020-01-20 08:51 | DS ---
[facility] Detox Discharge Summary Admission Date: 01/15/20 Discharge Date: 01/20/20 - History Present History: Opioid Dependence Additional Comments: 39 years old male admitted on 01/15/20 for opiate withdrawal sx management treated with methadone detox regiment seen by psychiatrist no medical intervention at this time mr moe has completed methadone regiment and is tolerated well cardiac s1s2 regular rate rhythm respiratory clear lung sounds bilaterally on auscultation abdomen soft round obese no rebound tenderness Pertinent Past History: time for discharge 33 minutes - Physical Exam Results Vital Signs: Vital Signs Temperature 97.7 F 01/20/20 05:27 Pulse Rate 61 01/20/20 05:27 Respiratory Rate 18 01/20/20 05:27 Blood Pressure 103/73 01/20/20 05:27 O2 Sat by Pulse Oximetry (%) 96 01/20/20 05:27 Pertinent Admission Physical Exam Findings: opiate withdrawal Laboratory Tests 01/15/20 01/16/20 01/16/20 22:50 07:50 07:50 WBC 5.4 RBC 4.48 Hgb 13.2 Hct 39.4 MCV 88.1 MCH 29.6 MCHC 33.5 RDW 13.6 Plt Count 106 L D MPV 10.5 Sodium Potassium Chloride Carbon Dioxide Anion Gap BUN Creatinine Est GFR (CKD-EPI)AfAm Est GFR (CKD-EPI)NonAf Random Glucose Fasting Glucose Calcium Total Bilirubin AST ALT Alkaline Phosphatase Total Protein Albumin Syphilis Serology Non-reactive COVID-19 ([facility]I) Not detected 01/16/20 01/19/20 07:50 07:30 WBC RBC Hgb Hct MCV MCH MCHC RDW Plt Count MPV Sodium 139 Potassium 4.0 Chloride 104 Carbon Dioxide 27 Anion Gap 8 BUN 18.8 H Creatinine 0.9 Est GFR (CKD-EPI)AfAm 122.52 Est GFR (CKD-EPI)NonAf 105.71 Random Glucose 128 H Fasting Glucose 100 Calcium 9.1 Total Bilirubin 0.9 AST 41 H ALT 72 H Alkaline Phosphatase 73 Total Protein 7.3 Albumin 3.7 Syphilis Serology COVID-19 ([facility]I) lab noted - Treatment Hospital Course: Detox Protocol Followed, Detoxed Safely, Responded well, Discharged Condition Good, Rehab Referral Accepted Patient [facility] - Medication Discharge Medications: Ambulatory Orders Quetiapine Fumarate [Seroquel -] 25 mg PO HS #30 tablet 08/24/13 Albuterol Sulfate Inhaler - [Ventolin HFA Inhaler -] 2 puff IH Q4H PRN #1 inh aler 01/17/20 Bictegrav/Emtricit/Tenofov Ala [Biktarvy 50-200-25 mg Tablet] 1 each PO DAILY #30 tablet 01/17/20 Bictegrav/Emtricit/Tenofov Ala [Biktarvy 50-200-25 mg Tablet] 1 each PO DAILY 01/20/20 - Diagnosis (1) Opioid dependence with withdrawal Current Visit: Yes Status: Acute (2) Asthma Current Visit: Yes Status: Chronic (3) HIV (human immunodeficiency virus infection) Current Visit: Yes Status: Chronic Qualifiers: HIV symptom status: asymptomatic Qualified Code(s): Z21 - Asymptomatic human immunodeficiency virus [HIV] infection status (4) Nicotine dependence Current Visit: Yes Status: Acute Qualifiers: Nicotine product type: cigarettes Substance use status: in withdrawal Qualified Code(s): F17.213 - Nicotine dependence, cigarettes, with withdrawal (5) Substance induced mood disorder Current Visit: Yes Status: Suspected - AMA Did Patient Leave Against Medical Advice: No COWS (PN) - Opiate Withdrawal Resting Pulse: 0= WA 80 or Below Sweatin= No chills or Flushing Restless Observation: 0= Sits Still Pupil Size: 0= Normal to Room Light Bone or Joint Aches: 1= Mild Discomfort Runny Nose/ Eye Tearin= None GI Upset > 30mins: 0= None Tremor Observation of Outstretched Hands: 0= None Yawning Observation: 0= None Anxiety or Irritability: 0= None Goose Flesh Skin: 0=Smooth Skin COWS Score: 1
[2020-01-20 09:26] VITALS: BP 127/83; PULSE 102; TEMP 96.8
[2020-01-20] MEDS ORDERED: PATIENT'S OWN MEDICATION (NON-FORMULARY) (Bictegrav/Emtricit/Tenofov Ala 1 EACH) PO SCH (10:00)
[2020-01-20] MEDS: PRENATAL VITAMINS W/ FOLIC ACID TABLET (FP) PO SCH (10:41)
== END 2020-01-20 13:05 | disposition other institution (70) | DRG 773 ==
LOC: YASAS 18:31 → Y3N 22:27
PROVIDERS: ADMIT Allergy & Immunology; ATTEND Allergy & Immunology
PROC: HZ2ZZZZ Detoxification Services for Substance Abuse Treatment (ICD-10-PCS; principal; 2020-01-15)
DX: F11.23 Opioid dependence with withdrawal (principal); F13.20 Sedative, hypnotic or anxiolytic dependence, uncomplicated; F14.20 Cocaine dependence, uncomplicated; F17.211 Nicotine dependence, cigarettes, in remission; F19.24 Other psychoactive substance dependence with psychoactive substance-induced mood disorder; F41.9 Anxiety disorder, unspecified; F51.05 Insomnia due to other mental disorder; Z21 Asymptomatic human immunodeficiency virus [HIV] infection status; J45.909 Unspecified asthma, uncomplicated; G47.00 Insomnia, unspecified; R73.9 Hyperglycemia, unspecified; Z86.19 Personal history of other infectious and parasitic diseases; Z91.5 Personal history of self-harm
CPT/HCPCS: 36415; 80053; 82947; 85027; 86780; 93005; 93010; Q0162; U0003

== ENCOUNTER 2020-01-20 13:09 | Inpatient (IN) | payer OTHER ==
--- NOTE | 2020-01-20 08:43 | HP ---
[facility] Rehab Assess/Revision - Admission History Admitted to Rehab from: [facility] Date of Admission to Rehab: 01/20/20 - Findings Detox History & Physical reviewed: Yes Concur with findings: Yes Comments/Additional Findings: transferred from detox to rehab admission as per protocol Inpatient Rehab Admission - Rehab Decision to Admit Inpatient rehab admission?: Yes - Initial Determination Are CD services needed?: Yes Free of communicable disease: Yes Not in need of hospitalization: Yes - Rehab Admission Criteria Previous failed treatment: Yes Poor recovery environment: Yes Comorbidities: Yes Lacks judgement: Yes Patient is meeting Inpatient Rehab admission criteria:: Yes
[~2020-01-20 13:09] MED LIST: ACETAMINOPHEN 325 MG TABLET (FP) PO PRN; ALBUTEROL SO4 HFA INHALER IH PRN; LOPERAMIDE HCL 2 MG CAPSULE PO PRN; MAG HYDROX/AL HYDROX/SIMETH 30 ML UNIT-DOSE CUP PO PRN; MAGNESIUM CITRATE 300 ML BOTTLE PO PRN; MAGNESIUM HYDROX 2400MG/30ML ORAL SUSPENSION 30 ML CUP PO PRN; P-EPHED 60MG/TRIPROLIDI 2.5MG TABLET PO PRN; PATIENT'S OWN MEDICATION (NON-FORMULARY) (Bictegrav/Emtricit/Tenofov Ala 1 EACH) PO SCH; guaiFENesin 200 MG/10 ML 10 ML UNIT-DOSE CUPS PO PRN
[2020-01-20] MEDS: PRENATAL VITAMINS W/ FOLIC ACID TABLET (FP) PO SCH (15:24)
[2020-01-20] MEDS: MELATONIN 5 MG TABLETS PO SCH (21:23)
[2020-01-20] MEDS: THIAMINE HCL 100 MG TABLET (FP) PO SCH (21:23)
[2020-01-21] MEDS: hydrOXYzine PAMOATE 25 MG CAPSULE (FP) PO PRN ×2 (10:06→15:09)
[2020-01-21] MEDS: BICTEGRAV/EMTRICIT/TENOFOV (BIKTARVY) 50-200-25 MG TABLET PO SCH (10:06)
[2020-01-21] MEDS: PRENATAL VITAMINS W/ FOLIC ACID TABLET (FP) PO SCH (10:06)
[2020-01-21] MEDS: IBUPROFEN 400 MG TABLET (FP) PO PRN ×2 (10:07→21:41)
--- NOTE | 2020-01-21 11:20 | PN ---
[facility] Progress Note Note: PATIENT EVALUATED TO DISCUSS HIV MEDICATION. HE STATES MEDICINE GIVES HIM JOINT PAIN AND NUMBNESS/TINGLING TO LEGS. HE DOES NOT WANT TO TAKE MEDICATION AND IS AWARE HE IS TO FOLLOW UP WITH PCP REGARDING CHANGING TREATMENT. PATIENT REQUESTING MEDICATION TREATMENT FOR NEUROPATHIC PAIN. Vital Signs Temperature 97.6 F 01/21/20 06:45 Pulse Rate 66 01/21/20 06:45 Respiratory Rate 16 01/21/20 06:45 Blood Pressure 94/60 01/21/20 06:45 O2 Sat by Pulse Oximetry (%) 96 01/21/20 06:45 PE ALERT AND ORIENTED X 3 SKIN WARM AND DRY +EOMS INTACT BL EXT FULL ROM, AMB AD BRAN NO TREMORS A/P: NEUROPATHIC DISCOMFORT WILL ORDER GABAPENTIN 100MG PO TID PATIENT ADVISED OF RIGHTS TO REFUSED MEDICATION IF HE CHOOSES AND STRONGLY ADVISED TO FOLLOW UP WITH PCP UPON D/C
[2020-01-21] MEDS: GABAPENTIN 100 MG CAPSULE PO SCH ×2 (15:09→21:40)
[2020-01-21] MEDS: MELATONIN 5 MG TABLETS PO SCH (21:40)
[2020-01-21] MEDS: THIAMINE HCL 100 MG TABLET (FP) PO SCH (21:40)
[2020-01-22] MEDS: GABAPENTIN 100 MG CAPSULE PO SCH ×3 (06:06→21:36)
[2020-01-22] MEDS: PRENATAL VITAMINS W/ FOLIC ACID TABLET (FP) PO SCH (10:06)
[2020-01-22] MEDS: BICTEGRAV/EMTRICIT/TENOFOV (BIKTARVY) 50-200-25 MG TABLET PO SCH (10:07)
[2020-01-22] MEDS: hydrOXYzine PAMOATE 25 MG CAPSULE (FP) PO PRN (14:10)
[2020-01-22] MEDS: IBUPROFEN 400 MG TABLET (FP) PO PRN (14:11)
[2020-01-22] MEDS: THIAMINE HCL 100 MG TABLET (FP) PO SCH (21:35)
[2020-01-22] MEDS: MELATONIN 5 MG TABLETS PO SCH (21:35)
[2020-01-23] MEDS: GABAPENTIN 100 MG CAPSULE PO SCH ×3 (06:10→21:11)
[2020-01-23] MEDS: PRENATAL VITAMINS W/ FOLIC ACID TABLET (FP) PO SCH (10:19)
[2020-01-23] MEDS: IBUPROFEN 400 MG TABLET (FP) PO PRN (10:19)
[2020-01-23] MEDS: hydrOXYzine PAMOATE 25 MG CAPSULE (FP) PO PRN (10:19)
[2020-01-23] MEDS: BICTEGRAV/EMTRICIT/TENOFOV (BIKTARVY) 50-200-25 MG TABLET PO SCH (10:21)
[2020-01-23] MEDS: THIAMINE HCL 100 MG TABLET (FP) PO SCH (21:11)
[2020-01-23] MEDS: MELATONIN 5 MG TABLETS PO SCH (21:11)
[2020-01-24] MEDS: GABAPENTIN 100 MG CAPSULE PO SCH ×3 (06:06→22:02)
[2020-01-24] MEDS: BICTEGRAV/EMTRICIT/TENOFOV (BIKTARVY) 50-200-25 MG TABLET PO SCH (10:17)
[2020-01-24] MEDS: PRENATAL VITAMINS W/ FOLIC ACID TABLET (FP) PO SCH (10:17)
[2020-01-24] MEDS: IBUPROFEN 400 MG TABLET (FP) PO PRN (16:05)
[2020-01-24] MEDS: THIAMINE HCL 100 MG TABLET (FP) PO SCH (22:02)
[2020-01-24] MEDS: MELATONIN 5 MG TABLETS PO SCH (22:03)
[2020-01-25] MEDS: GABAPENTIN 100 MG CAPSULE PO SCH ×3 (06:15→21:08)
[2020-01-25] MEDS: BICTEGRAV/EMTRICIT/TENOFOV (BIKTARVY) 50-200-25 MG TABLET PO SCH (10:05)
[2020-01-25] MEDS: PRENATAL VITAMINS W/ FOLIC ACID TABLET (FP) PO SCH (10:05)
[2020-01-25] MEDS: IBUPROFEN 400 MG TABLET (FP) PO PRN (14:24)
[2020-01-25] MEDS: THIAMINE HCL 100 MG TABLET (FP) PO SCH (21:08)
[2020-01-25] MEDS: MELATONIN 5 MG TABLETS PO SCH (21:08)
[2020-01-26] MEDS: GABAPENTIN 100 MG CAPSULE PO SCH ×3 (07:34→21:35)
[2020-01-26] MEDS: BICTEGRAV/EMTRICIT/TENOFOV (BIKTARVY) 50-200-25 MG TABLET PO SCH (10:11)
[2020-01-26] MEDS: PRENATAL VITAMINS W/ FOLIC ACID TABLET (FP) PO SCH (10:11)
--- NOTE | 2020-01-26 13:52 | CONSULT ---
[facility] Psychiatric Consult - Data Date of interview: 01/26/20 Admission source: [facility] Identifying data: Transition [address] for this 39 y/o male undergoing rehabilitation treatment (prior detoxification at [address] [place] [address]). REYES issues : heroin, benzodiazepine (clonazepam), cocaine. Patient is , a father of two, domiciled, unemployed and supported on [employer] benefits. Substance Abuse History: Discussed with the patient. REYES profile as follows : Smoking history: Former smoker. Have you smoked in the past 12 months: No. Aproximately how many cigarettes per day: 0. Cigars Per Day: 0. Hx Chewing Tobacco Use: No. Initiated information on smoking cessation: No. - Substance & Tx. History. Hx Alcohol Use: No. Hx Substance Use: Yes. Substance Use Type: Heroin. Hx Substance Use Treatment: Yes ([facility]). - Substances abused. Heroin. Substance route: Injection. Frequency: Daily. Amount used: 5 bags. Age of first use: 14. Date of last use: 01/15/20. Cocaine. Substance route: Injection. Frequency: Daily. Amount used: $50. Age of first use: 11. Date of last use: 01/15/20 Medical History: Medical profile is remarkable for hepatitis C, bronchial asthma and HIV infection since 2003 (on ART medications). Psychiatric History: No change since my encounter with the patient on 01/16/20. History remains as follows : patient denies history of psychiatric hospital izations. He indicates that he is currently followed at the [facility] OPD clinic. " They diagnosed me with Anxiety Disorder and insomnia." Mr Walker states that, over the years, he has been prescribed various medications which include citalopram, seroquel, trazodone, bupropion, gabapentin and other unnamed drugs. No longer on methadone maintenance (used to be a patient at the [facility] in the [place]). Patient endorses a remote history of one suicide attempt (age 14) via overdose with pills. Physical/Sexual Abuse/Trauma History: Patient denies. Additional Comment: Urine drug screen results: LOS-Cocaine, FEN-Fentanyl, MOP- Opiates, OXY-Oxycodone, MTD-Methadone. Noted. Mental Status Exam - Mental Status Exam Alert and Oriented to: Time, Place, Person Cognitive Function: Good Patient Appearance: Well Groomed Mood: Hopeful, Euthymic Affect: Appropriate, Normal Range Patient Behavior: Appropriate, Cooperative Speech Pattern: Clear, Appropriate Voice Loudness: Normal Thought Process: Intact, Goal Oriented Thought Disorder: Not Present Hallucinations: Denies Suicidal Ideation: Denies Homicidal Ideation: Denies Insight/Judgement: Fair Sleep: Poorly, Difficulty falling asleep Appetite: Good Gait/Station: Normal Psychiatric Findings - Problem List ([place] 1, 2,3) (1) Opioid use disorder Current Visit: Yes Status: Chronic (2) Cocaine dependence Current Visit: Yes Status: Chronic (3) Nicotine dependence Current Visit: Yes Status: Chronic Qualifiers: Nicotine product type: cigarettes Substance use status: in withdrawal Qualified Code(s): F17.213 - Nicotine dependence, cigarettes, with withdrawal (4) Substance induced mood disorder Current Visit: Yes Status: Chronic (5) Insomnia Current Visit: Yes Status: Chronic - Initial Treatment Plan Initial Treatment Plan: Psychoeducation. Support. Sleep hygiene. Motivational counseling. Insomnia is addressed with belsomra 10 mg po hs prn. Side efects/benefits discusssed with patient. Informed consent (verbal) granted to MD. Avendano.
[2020-01-26] MEDS: THIAMINE HCL 100 MG TABLET (FP) PO SCH (21:35)
[2020-01-26] MEDS: MELATONIN 5 MG TABLETS PO SCH (21:35)
[2020-01-26] MEDS: SUVOREXANT 10 MG TABLET PO PRN (21:36)
[2020-01-27] MEDS: GABAPENTIN 100 MG CAPSULE PO SCH ×3 (07:12→21:11)
[2020-01-27] MEDS: PRENATAL VITAMINS W/ FOLIC ACID TABLET (FP) PO SCH (10:09)
[2020-01-27] MEDS: BICTEGRAV/EMTRICIT/TENOFOV (BIKTARVY) 50-200-25 MG TABLET PO SCH (10:10)
[2020-01-27] MEDS: THIAMINE HCL 100 MG TABLET (FP) PO SCH (21:11)
[2020-01-27] MEDS: MELATONIN 5 MG TABLETS PO SCH (21:11)
[2020-01-27] MEDS: SUVOREXANT 10 MG TABLET PO PRN (21:12)
[2020-01-28] MEDS: GABAPENTIN 100 MG CAPSULE PO SCH ×3 (05:49→22:00)
[2020-01-28] MEDS: BICTEGRAV/EMTRICIT/TENOFOV (BIKTARVY) 50-200-25 MG TABLET PO SCH (10:01)
[2020-01-28] MEDS: PRENATAL VITAMINS W/ FOLIC ACID TABLET (FP) PO SCH (10:01)
[2020-01-28] MEDS: IBUPROFEN 400 MG TABLET (FP) PO PRN (10:02)
[2020-01-28] MEDS: THIAMINE HCL 100 MG TABLET (FP) PO SCH (21:58)
[2020-01-28] MEDS: MELATONIN 5 MG TABLETS PO SCH (21:58)
[2020-01-28] MEDS: SUVOREXANT 10 MG TABLET PO PRN (21:59)
[2020-01-29] MEDS: GABAPENTIN 100 MG CAPSULE PO SCH ×3 (07:06→21:21)
[2020-01-29] MEDS: PRENATAL VITAMINS W/ FOLIC ACID TABLET (FP) PO SCH (10:13)
[2020-01-29] MEDS: BICTEGRAV/EMTRICIT/TENOFOV (BIKTARVY) 50-200-25 MG TABLET PO SCH (10:14)
[2020-01-29] MEDS: MELATONIN 5 MG TABLETS PO SCH (21:21)
[2020-01-29] MEDS: THIAMINE HCL 100 MG TABLET (FP) PO SCH (21:21)
[2020-01-29] MEDS: SUVOREXANT 10 MG TABLET PO PRN (21:22)
[2020-01-30] MEDS: GABAPENTIN 100 MG CAPSULE PO SCH ×3 (06:28→21:37)
[2020-01-30] MEDS: PRENATAL VITAMINS W/ FOLIC ACID TABLET (FP) PO SCH (10:27)
[2020-01-30] MEDS: BICTEGRAV/EMTRICIT/TENOFOV (BIKTARVY) 50-200-25 MG TABLET PO SCH (10:27)
[2020-01-30] MEDS: IBUPROFEN 400 MG TABLET (FP) PO PRN (10:28)
[2020-01-30] MEDS: MELATONIN 5 MG TABLETS PO SCH (21:37)
[2020-01-30] MEDS: THIAMINE HCL 100 MG TABLET (FP) PO SCH (21:37)
[2020-01-30] MEDS: SUVOREXANT 10 MG TABLET PO PRN (21:38)
[2020-01-31] MEDS: GABAPENTIN 100 MG CAPSULE PO SCH ×3 (06:01→21:16)
[2020-01-31] MEDS: IBUPROFEN 400 MG TABLET (FP) PO PRN (10:20)
[2020-01-31] MEDS: BICTEGRAV/EMTRICIT/TENOFOV (BIKTARVY) 50-200-25 MG TABLET PO SCH (10:20)
[2020-01-31] MEDS: PRENATAL VITAMINS W/ FOLIC ACID TABLET (FP) PO SCH (10:20)
[2020-01-31] MEDS: MELATONIN 5 MG TABLETS PO SCH (21:17)
[2020-01-31] MEDS: SUVOREXANT 10 MG TABLET PO PRN (21:17)
[2020-01-31] MEDS: THIAMINE HCL 100 MG TABLET (FP) PO SCH (21:17)
[2020-02-01] MEDS: GABAPENTIN 100 MG CAPSULE PO SCH (06:43)
[2020-02-01 07:05] VITALS: BP 109/72; PULSE 88; TEMP 97.7
[2020-02-01] MEDS ORDERED: PT OWN MED DRAWER 7, Y5N ONE (08:18)
--- NOTE | 2020-02-01 09:26 | DS ---
[facility] Rehab Discharge Summary - [facility] Rehab Discharge Summary Admission Date: 01/20/20 Discharge Date: 02/01/20 - History Present History: Cocaine dependence, Opioid dependence, Sedative dependence Pertinent Past History: Asthma AIDS HEP C Mood Disorder - Discharge Physical Exam Vital Signs: Vital Signs Temperature 97.7 F 02/01/20 06:35 Pulse Rate 88 02/01/20 06:35 Respiratory Rate 18 02/01/20 06:35 Blood Pressure 109/72 02/01/20 06:35 O2 Sat by Pulse Oximetry (%) 97 02/01/20 06:35 VSS Neuro:Alert o x 3 Resp:nad Musk[place]al:oob ambulating with steady gait. Active ROM all extremities. - Treatment Discharge Condition: Discharge condition good Hospital Course: Referred from [facility] after completing detox. Rehab treatment completed . Rehabilitated safely and Responded well. CD aftercare accepted to [facility] OPD program. - Medication Discharge Medications: Ambulatory Orders Quetiapine Fumarate [Seroquel -] 25 mg PO HS #30 tablet 08/24/13 Albuterol Sulfate Inhaler - [Ventolin HFA Inhaler -] 2 puff IH Q4H PRN #1 inhaler 01/17/20 Bictegrav/Emtricit/Tenofov Ala [Biktarvy 50-200-25 mg Tablet] 1 each PO DAILY #30 tablet 01/17/20 Bictegrav/Emtricit/Tenofov Ala [Biktarvy 50-200-25 mg Tablet] 1 each PO DAILY 01/20/20 Gabapentin [Neurontin] 100 mg PO TID 01/20/20 - Medication-Assisted Treatment (MAT) Medication-Assisted Treatment (MAT): No - Discharge Instructions Diet, activity, other medical instructions: Diet:Regular Activity:oob ad leighann Other medical instructions:follow up with CD aftercare recommendation as scheduled. - Diagnosis (1) Acquired immune deficiency syndrome (AIDS) Status: Chronic (2) Asthma Status: Chronic (3) Hepatitis C carrier Status: Chronic (4) Nicotine dependence Status: Chronic Qualifiers: Nicotine product type: cigarettes Substance use status: uncomplicated Qualified Code(s): F17.210 - Nicotine dependence, cigarettes, uncomplicated (5) Opioid use disorder Status: Chronic - Follow-up Referral Minutes to complete discharge: 25 - AMA Did Patient Leave Against Medical Advice: No Additional Comments: Pt reports he has PCP Dr. Genao at [facility] for medical management. Pt reports he has own meds.
[2020-02-01] MEDS: PRENATAL VITAMINS W/ FOLIC ACID TABLET (FP) PO SCH (09:32)
[2020-02-01] MEDS: BICTEGRAV/EMTRICIT/TENOFOV (BIKTARVY) 50-200-25 MG TABLET PO SCH (09:33)
== END 2020-02-01 09:35 | disposition home or self-care (01) | DRG 772 ==
LOC: YASAS 13:09 → Y3W 13:11
PROVIDERS: ADMIT Allergy & Immunology; ATTEND Allergy & Immunology
PROC: HZ42ZZZ Group Counseling for Substance Abuse Treatment, Cognitive-Behavioral (ICD-10-PCS; principal; 2020-01-20)
DX: F10.20 Alcohol dependence, uncomplicated (principal); F13.20 Sedative, hypnotic or anxiolytic dependence, uncomplicated; F17.211 Nicotine dependence, cigarettes, in remission; F14.20 Cocaine dependence, uncomplicated; F19.24 Other psychoactive substance dependence with psychoactive substance-induced mood disorder; Z21 Asymptomatic human immunodeficiency virus [HIV] infection status

== ENCOUNTER 2021-05-01 12:40 | Inpatient (IN) | payer OTHER ==
[2021-05-01 13:51] VITALS: BMI 32.3
[2021-05-01] MEDS ORDERED: MAGNESIUM CITRATE 300 ML BOTTLE PO PRN (22:03)
[2021-05-01] MEDS ORDERED: MAG HYDROX/AL HYDROX/SIMETH 30 ML UNIT-DOSE CUP PO PRN (22:03)
[2021-05-01] MEDS ORDERED: P-EPHED 60MG/TRIPROLIDI 2.5MG TABLET PO PRN (22:03)
[2021-05-01] MEDS ORDERED: ACETAMINOPHEN 325 MG TABLET (FP) PO PRN (22:03)
[2021-05-01] MEDS ORDERED: LOPERAMIDE HCL 2 MG CAPSULE PO PRN (22:03)
[2021-05-01] MEDS ORDERED: NALOXONE (NARCAN) HCL 4 MG/0.1 ML SPRAY NS PRN (22:03)
[2021-05-01] MEDS ORDERED: guaiFENesin 200 MG/10 ML 10 ML UNIT-DOSE CUPS PO PRN (22:03)
[2021-05-01] MEDS ORDERED: MAGNESIUM HYDROX 2400MG/30ML ORAL SUSPENSION 30 ML CUP PO PRN (22:03)
[2021-05-02] MEDS ORDERED: TUBERCULIN PPD 5 TU/0.1ML VIAL ID ONE (00:36)
[2021-05-02] MEDS: methaDONE HCL 40 MG DISPERSABLE TABLET PO SCH (09:02)
[2021-05-02] MEDS: BICTEGRAV/EMTRICIT/TENOFOV (BIKTARVY) 50-200-25 MG TABLET PO SCH (09:02)
[2021-05-02] MEDS: PRENATAL VITAMINS W/ FOLIC ACID TABLET (FP) PO SCH (09:03)
[2021-05-02] MEDS: NICOTINE 7 MG/24 HOURS TOPICAL PATCH TD SCH (09:03)
[2021-05-02] MEDS: NICOTINE 10 MG CARTRIDGE (INHALER) IH PRN ×2 (09:04→21:13)
[2021-05-02] MEDS: MELATONIN 5 MG TABLETS PO SCH ×2 (09:16→21:10)
[2021-05-02 10:42] LABS: HEMATOCRIT 38.8 % (35.4-49); HEMOGLOBIN 13.2 GM/dL (11.7-16.9); MCH 30.7 pg (25.7-33.7); MCHC 33.9 g/dl (32.0-35.9); MEAN CELL VOLUME 90.5 fl (80-96); MEAN PLT VOLUME 9.5 fl (7.5-11.1); PLATELET COUNT 133 10^3/uL (134-434); RBC 4.29 M/mm3 (4.00-5.60); RDW 13.3 % (11.9-15.9); WHITE BLOOD COUNT 4.8 K/mm3 (4.0-10.0)
[2021-05-02 10:43] LABS: PH,URINE 5.5 (5.0-8.0); URINE APPEARANCE CLEAR; URINE BILIRUBIN NEGATIVE (NEGATIVE); URINE COLOR YELLOW; URINE GLUCOSE (UA) NEGATIVE (NEGATIVE); URINE KETONE NEGATIVE (NEGATIVE); URINE LEUK ESTERASE NEGATIVE (NEGATIVE); URINE NITRITE NEGATIVE (NEGATIVE); URINE PROTEIN NEGATIVE (NEGATIVE)
[2021-05-02 10:54] LABS: ALBUMIN 3.1 g/dl (3.4-5.0); BLOOD UREA NITROGEN 15.9 mg/dL (7-18); CALCIUM 8.7 mg/dL (8.5-10.1)
[2021-05-02 10:58] LABS: CREATININE 0.9 mg/dL (0.55-1.3)
[2021-05-02 11:00] LABS: BILIRUBIN,TOTAL 0.7 mg/dL (0.2-1); TOT PROT 6.6 g/dl (6.4-8.2)
[2021-05-02] MEDS: THIAMINE HCL 100 MG TABLET (FP) PO SCH (21:10)
[2021-05-02] MEDS: hydrOXYzine PAMOATE 25 MG CAPSULE (FP) PO PRN (21:10)
[2021-05-02] MEDS: IBUPROFEN 400 MG TABLET (FP) PO PRN (21:11)
[2021-05-03] MEDS: methaDONE HCL 40 MG DISPERSABLE TABLET PO SCH (07:00)
[2021-05-03] MEDS: BICTEGRAV/EMTRICIT/TENOFOV (BIKTARVY) 50-200-25 MG TABLET PO SCH (09:20)
[2021-05-03] MEDS: PRENATAL VITAMINS W/ FOLIC ACID TABLET (FP) PO SCH (09:20)
[2021-05-03] MEDS: NICOTINE 7 MG/24 HOURS TOPICAL PATCH TD SCH (09:21)
[2021-05-03] MEDS: NICOTINE 10 MG CARTRIDGE (INHALER) IH PRN ×2 (09:21→21:24)
[2021-05-03] MEDS: hydrOXYzine PAMOATE 25 MG CAPSULE (FP) PO PRN (21:23)
[2021-05-03] MEDS: MELATONIN 5 MG TABLETS PO SCH (21:23)
[2021-05-03] MEDS: THIAMINE HCL 100 MG TABLET (FP) PO SCH (21:23)
[2021-05-03] MEDS: IBUPROFEN 400 MG TABLET (FP) PO PRN (21:25)
[2021-05-04] MEDS: methaDONE HCL 40 MG DISPERSABLE TABLET PO SCH (06:20)
[2021-05-04] MEDS: BICTEGRAV/EMTRICIT/TENOFOV (BIKTARVY) 50-200-25 MG TABLET PO SCH (09:51)
[2021-05-04] MEDS: PRENATAL VITAMINS W/ FOLIC ACID TABLET (FP) PO SCH (09:52)
[2021-05-04] MEDS: NICOTINE 10 MG CARTRIDGE (INHALER) IH PRN (09:52)
[2021-05-04] MEDS: NICOTINE 7 MG/24 HOURS TOPICAL PATCH TD SCH (09:52)
[2021-05-04] MEDS ORDERED: ALBUTEROL SO4 HFA INHALER IH PRN (15:47)
[2021-05-04] MEDS: THIAMINE HCL 100 MG TABLET (FP) PO SCH (21:40)
[2021-05-04] MEDS: MELATONIN 5 MG TABLETS PO SCH (21:40)
[2021-05-04] MEDS: hydrOXYzine PAMOATE 25 MG CAPSULE (FP) PO PRN (21:40)
[2021-05-04] MEDS: IBUPROFEN 400 MG TABLET (FP) PO PRN (21:42)
[2021-05-05] MEDS: methaDONE HCL 40 MG DISPERSABLE TABLET PO SCH (06:29)
[2021-05-05] MEDS: NICOTINE 10 MG CARTRIDGE (INHALER) IH PRN ×2 (10:03→22:05)
[2021-05-05] MEDS: BICTEGRAV/EMTRICIT/TENOFOV (BIKTARVY) 50-200-25 MG TABLET PO SCH (10:03)
[2021-05-05] MEDS: PRENATAL VITAMINS W/ FOLIC ACID TABLET (FP) PO SCH (10:03)
[2021-05-05] MEDS: NICOTINE 7 MG/24 HOURS TOPICAL PATCH TD SCH (10:04)
[2021-05-05] MEDS: GABAPENTIN 100 MG CAPSULE PO SCH ×2 (15:08→22:02)
[2021-05-05] MEDS: hydrOXYzine PAMOATE 25 MG CAPSULE (FP) PO PRN (22:02)
[2021-05-05] MEDS: THIAMINE HCL 100 MG TABLET (FP) PO SCH (22:02)
[2021-05-05] MEDS: traZODone HCL 50 MG TABLET (FP) PO SCH (22:04)
[2021-05-06] MEDS: GABAPENTIN 100 MG CAPSULE PO SCH ×3 (06:24→22:54)
[2021-05-06] MEDS: methaDONE HCL 40 MG DISPERSABLE TABLET PO SCH (06:24)
[2021-05-06] MEDS: BICTEGRAV/EMTRICIT/TENOFOV (BIKTARVY) 50-200-25 MG TABLET PO SCH (09:53)
[2021-05-06] MEDS: NICOTINE 7 MG/24 HOURS TOPICAL PATCH TD SCH (09:53)
[2021-05-06] MEDS: PRENATAL VITAMINS W/ FOLIC ACID TABLET (FP) PO SCH (09:53)
[2021-05-06] MEDS: NICOTINE 10 MG CARTRIDGE (INHALER) IH PRN (13:02)
[2021-05-06] MEDS: IBUPROFEN 400 MG TABLET (FP) PO PRN (21:20)
[2021-05-06] MEDS: THIAMINE HCL 100 MG TABLET (FP) PO SCH (21:24)
[2021-05-06] MEDS: traZODone HCL 50 MG TABLET (FP) PO SCH (22:54)
[2021-05-07] MEDS: methaDONE HCL 40 MG DISPERSABLE TABLET PO SCH (06:30)
[2021-05-07] MEDS: GABAPENTIN 100 MG CAPSULE PO SCH ×3 (06:31→22:54)
[2021-05-07] MEDS: PRENATAL VITAMINS W/ FOLIC ACID TABLET (FP) PO SCH (09:48)
[2021-05-07] MEDS: BICTEGRAV/EMTRICIT/TENOFOV (BIKTARVY) 50-200-25 MG TABLET PO SCH (09:48)
[2021-05-07] MEDS: NICOTINE 10 MG CARTRIDGE (INHALER) IH PRN ×2 (09:50→21:26)
[2021-05-07] MEDS: NICOTINE 7 MG/24 HOURS TOPICAL PATCH TD SCH (09:50)
[2021-05-07] MEDS: hydrOXYzine PAMOATE 25 MG CAPSULE (FP) PO PRN (21:24)
[2021-05-07] MEDS: THIAMINE HCL 100 MG TABLET (FP) PO SCH (21:24)
[2021-05-07] MEDS: METHOCARBAMOL 500 MG TABLET PO PRN (21:25)
[2021-05-07] MEDS: traZODone HCL 50 MG TABLET (FP) PO SCH (22:54)
[2021-05-08] MEDS: methaDONE HCL 40 MG DISPERSABLE TABLET PO SCH (06:29)
[2021-05-08] MEDS: GABAPENTIN 100 MG CAPSULE PO SCH (06:30)
[2021-05-08] MEDS: NICOTINE 7 MG/24 HOURS TOPICAL PATCH TD SCH (09:39)
[2021-05-08] MEDS: NICOTINE 10 MG CARTRIDGE (INHALER) IH PRN (09:39)
[2021-05-08] MEDS: PRENATAL VITAMINS W/ FOLIC ACID TABLET (FP) PO SCH (09:39)
[2021-05-08] MEDS: BICTEGRAV/EMTRICIT/TENOFOV (BIKTARVY) 50-200-25 MG TABLET PO SCH (09:39)
[2021-05-08] MEDS: THIAMINE HCL 100 MG TABLET (FP) PO SCH (21:31)
[2021-05-08] MEDS ORDERED: MIRTAZAPINE 15 MG TABLET (FP) PO ONE (22:00)
[2021-05-09] MEDS: methaDONE HCL 40 MG DISPERSABLE TABLET PO SCH (06:22)
[2021-05-09] MEDS: PRENATAL VITAMINS W/ FOLIC ACID TABLET (FP) PO SCH (09:51)
[2021-05-09] MEDS: BICTEGRAV/EMTRICIT/TENOFOV (BIKTARVY) 50-200-25 MG TABLET PO SCH (09:51)
[2021-05-09] MEDS: NICOTINE 7 MG/24 HOURS TOPICAL PATCH TD SCH (09:52)
[2021-05-09] MEDS: NICOTINE 10 MG CARTRIDGE (INHALER) IH PRN (09:52)
[2021-05-09] MEDS: hydrOXYzine PAMOATE 25 MG CAPSULE (FP) PO PRN (21:47)
[2021-05-09] MEDS: MELATONIN 5 MG TABLETS PO PRN (21:47)
[2021-05-09] MEDS: THIAMINE HCL 100 MG TABLET (FP) PO SCH (21:47)
[2021-05-10] MEDS: methaDONE HCL 40 MG DISPERSABLE TABLET PO SCH (06:45)
[2021-05-10] MEDS: NICOTINE 10 MG CARTRIDGE (INHALER) IH PRN (09:46)
[2021-05-10] MEDS: PRENATAL VITAMINS W/ FOLIC ACID TABLET (FP) PO SCH (09:46)
[2021-05-10] MEDS: BICTEGRAV/EMTRICIT/TENOFOV (BIKTARVY) 50-200-25 MG TABLET PO SCH (09:46)
[2021-05-10] MEDS: NICOTINE 7 MG/24 HOURS TOPICAL PATCH TD SCH (10:00)
[2021-05-10] MEDS: METHOCARBAMOL 500 MG TABLET PO PRN (21:30)
[2021-05-10] MEDS: hydrOXYzine PAMOATE 25 MG CAPSULE (FP) PO PRN (21:30)
[2021-05-10] MEDS: THIAMINE HCL 100 MG TABLET (FP) PO SCH (21:30)
[2021-05-10] MEDS: MELATONIN 5 MG TABLETS PO PRN (21:33)
[2021-05-11] MEDS: methaDONE HCL 40 MG DISPERSABLE TABLET PO SCH (06:57)
[2021-05-11] MEDS: BICTEGRAV/EMTRICIT/TENOFOV (BIKTARVY) 50-200-25 MG TABLET PO SCH (09:58)
[2021-05-11] MEDS: NICOTINE 7 MG/24 HOURS TOPICAL PATCH TD SCH (09:59)
[2021-05-11] MEDS: PRENATAL VITAMINS W/ FOLIC ACID TABLET (FP) PO SCH (09:59)
[2021-05-11] MEDS: THIAMINE HCL 100 MG TABLET (FP) PO SCH (21:07)
[2021-05-11] MEDS: MELATONIN 5 MG TABLETS PO PRN (21:07)
[2021-05-11] MEDS: IBUPROFEN 400 MG TABLET (FP) PO PRN (21:08)
[2021-05-12] MEDS: methaDONE HCL 40 MG DISPERSABLE TABLET PO SCH (06:23)
[2021-05-12] MEDS: PRENATAL VITAMINS W/ FOLIC ACID TABLET (FP) PO SCH (09:48)
[2021-05-12] MEDS: BICTEGRAV/EMTRICIT/TENOFOV (BIKTARVY) 50-200-25 MG TABLET PO SCH (09:48)
[2021-05-12] MEDS: NICOTINE 10 MG CARTRIDGE (INHALER) IH PRN (09:49)
[2021-05-12] MEDS: NICOTINE 7 MG/24 HOURS TOPICAL PATCH TD SCH (10:27)
[2021-05-12] MEDS: MELATONIN 5 MG TABLETS PO PRN (21:24)
[2021-05-12] MEDS: THIAMINE HCL 100 MG TABLET (FP) PO SCH (21:24)
[2021-05-13] MEDS: methaDONE HCL 40 MG DISPERSABLE TABLET PO SCH (06:24)
[2021-05-13] MEDS: BICTEGRAV/EMTRICIT/TENOFOV (BIKTARVY) 50-200-25 MG TABLET PO SCH (09:42)
[2021-05-13] MEDS: PRENATAL VITAMINS W/ FOLIC ACID TABLET (FP) PO SCH (09:42)
[2021-05-13] MEDS: NICOTINE 10 MG CARTRIDGE (INHALER) IH PRN (09:43)
[2021-05-13] MEDS: NICOTINE 7 MG/24 HOURS TOPICAL PATCH TD SCH (09:43)
[2021-05-13] MEDS: THIAMINE HCL 100 MG TABLET (FP) PO SCH (21:11)
[2021-05-14] MEDS: methaDONE HCL 40 MG DISPERSABLE TABLET PO SCH (06:21)
[2021-05-14 07:17] VITALS: BP 117/81; PULSE 67; TEMP 97.7
[2021-05-14] MEDS: NICOTINE 7 MG/24 HOURS TOPICAL PATCH TD SCH (09:48)
[2021-05-14] MEDS: BICTEGRAV/EMTRICIT/TENOFOV (BIKTARVY) 50-200-25 MG TABLET PO SCH (09:48)
[2021-05-14] MEDS: PRENATAL VITAMINS W/ FOLIC ACID TABLET (FP) PO SCH (09:48)
== END 2021-05-14 09:58 | disposition home or self-care (01) | DRG 772 ==
LOC: YASAS 12:40 → Y3E 23:30 → Y3W 05-11 18:41
PROVIDERS: ADMIT Allergy & Immunology; ATTEND Allergy & Immunology
PROC: HZ42ZZZ Group Counseling for Substance Abuse Treatment, Cognitive-Behavioral (ICD-10-PCS; principal; 2021-05-01)
DX: F11.20 Opioid dependence, uncomplicated (principal); F14.20 Cocaine dependence, uncomplicated; F13.20 Sedative, hypnotic or anxiolytic dependence, uncomplicated; F17.210 Nicotine dependence, cigarettes, uncomplicated; F19.282 Other psychoactive substance dependence with psychoactive substance-induced sleep disorder; F19.280 Other psychoactive substance dependence with psychoactive substance-induced anxiety disorder; F19.24 Other psychoactive substance dependence with psychoactive substance-induced mood disorder; Z21 Asymptomatic human immunodeficiency virus [HIV] infection status; B18.2 Chronic viral hepatitis C; J45.909 Unspecified asthma, uncomplicated; Z86.19 Personal history of other infectious and parasitic diseases
CPT/HCPCS: 36415; 80053; 81003; 82962; 85027; 86780; C9803; U0003; U0005

== ENCOUNTER 2021-10-16 13:03 | Inpatient (IN) | payer OTHER ==
[2021-10-16] MEDS ORDERED: DICYCLOMINE HCL 10 MG CAPSULE PO PRN (14:59)
[2021-10-16] MEDS ORDERED: MAG HYDROX/AL HYDROX/SIMETH 30 ML UNIT-DOSE CUP PO PRN (14:59)
[2021-10-16] MEDS ORDERED: ACETAMINOPHEN 325 MG TABLET (FP) PO PRN ×2 (14:59)
[2021-10-16] MEDS ORDERED: MAGNESIUM HYDROX 2400MG/30ML ORAL SUSPENSION 30 ML CUP PO PRN (14:59)
[2021-10-16] MEDS ORDERED: IBUPROFEN 400 MG TABLET (FP) PO PRN (14:59)
[2021-10-16] MEDS ORDERED: ONDANSETRON *ODT* 4 MG TABLET SL PRN (14:59)
[2021-10-16] MEDS ORDERED: NICOTINE 10 MG CARTRIDGE (INHALER) IH PRN (14:59)
[2021-10-16] MEDS ORDERED: MENTHOL/PHENOL 1 EACH UD MM PRN (14:59)
[2021-10-16] MEDS ORDERED: MAGNESIUM CITRATE 300 ML BOTTLE PO PRN (14:59)
[2021-10-16] MEDS ORDERED: BISMUTH SUBSALICYLATE 262 MG/15 ML BTL PO PRN (14:59)
[2021-10-16] MEDS ORDERED: LOPERAMIDE HCL 2 MG CAPSULE PO PRN (14:59)
[2021-10-16] MEDS ORDERED: ALBUTEROL SO4 HFA INHALER IH PRN (15:04)
[2021-10-16 16:57] VITALS: BMI 32.8
[2021-10-16] MEDS ORDERED: hydrOXYzine PAMOATE 25 MG CAPSULE (FP) PO SCH (18:00)
[2021-10-16] MEDS ORDERED: MELATONIN 5 MG TABLETS PO PRN (20:22)
[2021-10-16] MEDS ORDERED: MELATONIN 5 MG TABLETS PO SCH (22:00)
[2021-10-16] MEDS: diazePAM 5 MG TABLET PO SCH ×2 (22:42→22:44)
[2021-10-16] MEDS: DOCUSATE SODIUM 100 MG CAPSULE (FP) PO SCH (22:43)
[2021-10-16] MEDS: BUDESONIDE/FORMETEROL FUMARATE 160/4.5 mcg INHALER IH SCH (22:44)
[2021-10-16] MEDS: THIAMINE HCL 100 MG TABLET (FP) PO SCH (22:45)
[2021-10-16] MEDS: PRENATAL VITAMINS W/ FOLIC ACID TABLET (FP) PO SCH (22:47)
[2021-10-17] MEDS: diazePAM 5 MG TABLET PO PRN ×2 (02:24→14:16)
[2021-10-17] MEDS: diazePAM 5 MG TABLET PO SCH ×4 (06:25→22:14)
[2021-10-17] MEDS: hydrOXYzine PAMOATE 25 MG CAPSULE (FP) PO PRN ×2 (10:17→14:10)
[2021-10-17] MEDS: BUDESONIDE/FORMETEROL FUMARATE 160/4.5 mcg INHALER IH SCH ×2 (10:17→22:12)
[2021-10-17] MEDS: PANTOPRAZOLE 20 MG TABLET PO SCH (10:18)
[2021-10-17] MEDS: METHOCARBAMOL 500 MG TABLET PO PRN (10:18)
[2021-10-17] MEDS: PRENATAL VITAMINS W/ FOLIC ACID TABLET (FP) PO SCH (10:18)
[2021-10-17] MEDS: methaDONE HCL 40 MG DISPERSABLE TABLET PO SCH (10:19)
[2021-10-17] MEDS: NICOTINE POLACRILEX 4 MG GUM BUC PRN ×3 (10:22→22:17)
[2021-10-17 11:54] LABS: HEMATOCRIT 37.6 % (35.4-49); HEMOGLOBIN 12.6 GM/dL (11.7-16.9); MCH 30.1 pg (25.7-33.7); MCHC 33.5 g/dl (32.0-35.9); MEAN CELL VOLUME 89.8 fl (80-96); MEAN PLT VOLUME 9.8 fl (7.5-11.1); PLATELET COUNT 111 10^3/uL (134-434); RBC 4.18 M/mm3 (4.00-5.60); RDW 14.5 % (11.9-15.9); WHITE BLOOD COUNT 3.9 K/mm3 (4.0-10.0)
[2021-10-17 12:26] LABS: ALBUMIN 3.4 g/dl (3.4-5.0); BLOOD UREA NITROGEN 13.4 mg/dL (7-18); CALCIUM 9.1 mg/dL (8.5-10.1)
[2021-10-17 12:29] LABS: CREATININE 0.8 mg/dL (0.55-1.3)
[2021-10-17 12:30] LABS: BILIRUBIN,TOTAL 0.6 mg/dL (0.2-1)
[2021-10-17 12:31] LABS: TOT PROT 6.5 g/dl (6.4-8.2)
[2021-10-17] MEDS: BICTEGRAV/EMTRICIT/TENOFOV (BIKTARVY) 50-200-25 MG TABLET PO SCH (14:16)
[2021-10-17] MEDS: MIRTAZAPINE 15 MG TABLET (FP) PO SCH (22:13)
[2021-10-17] MEDS: DOCUSATE SODIUM 100 MG CAPSULE (FP) PO SCH (22:13)
[2021-10-17] MEDS: THIAMINE HCL 100 MG TABLET (FP) PO SCH (23:06)
[2021-10-18] MEDS: methaDONE HCL 40 MG DISPERSABLE TABLET PO SCH (06:13)
[2021-10-18] MEDS: diazePAM 5 MG TABLET PO SCH ×3 (06:13→22:22)
[2021-10-18] MEDS: BICTEGRAV/EMTRICIT/TENOFOV (BIKTARVY) 50-200-25 MG TABLET PO SCH (07:43)
[2021-10-18] MEDS: diazePAM 5 MG TABLET PO PRN (10:38)
[2021-10-18] MEDS: hydrOXYzine PAMOATE 25 MG CAPSULE (FP) PO PRN (10:38)
[2021-10-18] MEDS: METHOCARBAMOL 500 MG TABLET PO PRN ×2 (10:38→22:24)
[2021-10-18] MEDS: PRENATAL VITAMINS W/ FOLIC ACID TABLET (FP) PO SCH (10:38)
[2021-10-18] MEDS: PANTOPRAZOLE 20 MG TABLET PO SCH (10:38)
[2021-10-18] MEDS: BUDESONIDE/FORMETEROL FUMARATE 160/4.5 mcg INHALER IH SCH ×2 (10:39→23:27)
[2021-10-18] MEDS: NICOTINE POLACRILEX 4 MG GUM BUC PRN ×2 (10:40→22:26)
[2021-10-18] MEDS: MIRTAZAPINE 15 MG TABLET (FP) PO SCH (22:21)
[2021-10-18] MEDS: DOCUSATE SODIUM 100 MG CAPSULE (FP) PO SCH (22:21)
[2021-10-18] MEDS: THIAMINE HCL 100 MG TABLET (FP) PO SCH (22:22)
[2021-10-19 00:06] LABS: SARS-CoV-2 NAA Not Detected (Not Detected)
[2021-10-19] MEDS: diazePAM 5 MG TABLET PO SCH ×2 (05:36→17:32)
[2021-10-19] MEDS: methaDONE HCL 40 MG DISPERSABLE TABLET PO SCH (05:36)
[2021-10-19] MEDS: BICTEGRAV/EMTRICIT/TENOFOV (BIKTARVY) 50-200-25 MG TABLET PO SCH (08:40)
[2021-10-19] MEDS: METHOCARBAMOL 500 MG TABLET PO PRN (10:25)
[2021-10-19] MEDS: PRENATAL VITAMINS W/ FOLIC ACID TABLET (FP) PO SCH (10:25)
[2021-10-19] MEDS: PANTOPRAZOLE 20 MG TABLET PO SCH (10:25)
[2021-10-19] MEDS: BUDESONIDE/FORMETEROL FUMARATE 160/4.5 mcg INHALER IH SCH ×2 (10:25→22:29)
[2021-10-19] MEDS: diazePAM 5 MG TABLET PO PRN (10:25)
[2021-10-19] MEDS: NICOTINE POLACRILEX 4 MG GUM BUC PRN (17:33)
[2021-10-19] MEDS: DOCUSATE SODIUM 100 MG CAPSULE (FP) PO SCH (22:07)
[2021-10-19] MEDS: THIAMINE HCL 100 MG TABLET (FP) PO SCH (22:08)
[2021-10-19] MEDS: MIRTAZAPINE 15 MG TABLET (FP) PO SCH (22:08)
[2021-10-20] MEDS: methaDONE HCL 40 MG DISPERSABLE TABLET PO SCH (05:30)
[2021-10-20] MEDS ORDERED: diazePAM 5 MG TABLET PO ONE (06:00)
[2021-10-20] MEDS: PANTOPRAZOLE 20 MG TABLET PO SCH (10:29)
[2021-10-20] MEDS: PRENATAL VITAMINS W/ FOLIC ACID TABLET (FP) PO SCH (10:29)
[2021-10-20] MEDS: BUDESONIDE/FORMETEROL FUMARATE 160/4.5 mcg INHALER IH SCH (10:30)
[2021-10-20] MEDS: BICTEGRAV/EMTRICIT/TENOFOV (BIKTARVY) 50-200-25 MG TABLET PO SCH (10:30)
[2021-10-20] MEDS: NICOTINE POLACRILEX 4 MG GUM BUC PRN (10:31)
[2021-10-20 12:39] VITALS: BP 103/69; PULSE 86; TEMP 98.2
== END 2021-10-20 12:55 | disposition other institution (70) | DRG 773 ==
LOC: YASAS 13:03 → Y6N 17:17
PROVIDERS: ADMIT Allergy & Immunology; ATTEND Allergy & Immunology
PROC: HZ2ZZZZ Detoxification Services for Substance Abuse Treatment (ICD-10-PCS; principal; 2021-10-16)
DX: F10.230 Alcohol dependence with withdrawal, uncomplicated (principal); F13.230 Sedative, hypnotic or anxiolytic dependence with withdrawal, uncomplicated; F11.20 Opioid dependence, uncomplicated; F14.20 Cocaine dependence, uncomplicated; F17.213 Nicotine dependence, cigarettes, with withdrawal; F19.24 Other psychoactive substance dependence with psychoactive substance-induced mood disorder; F34.1 Dysthymic disorder; Z21 Asymptomatic human immunodeficiency virus [HIV] infection status; J43.9 Emphysema, unspecified; K21.9 Gastro-esophageal reflux disease without esophagitis; K64.9 Unspecified hemorrhoids; B18.2 Chronic viral hepatitis C; R63.8 Other symptoms and signs concerning food and fluid intake
CPT/HCPCS: 36415; 80053; 85027; 86780; C9803-CS; U0003; U0005

== ENCOUNTER 2021-10-20 13:07 | Inpatient (IN) | payer OTHER ==
[2021-10-20] MEDS ORDERED: NALOXONE HCL (KLOXXADO) 8 MG SPRAY NS PRN (14:19)
[2021-10-20] MEDS ORDERED: LOPERAMIDE HCL 2 MG CAPSULE PO PRN (14:19)
[2021-10-20] MEDS ORDERED: hydrOXYzine PAMOATE 25 MG CAPSULE (FP) PO PRN (14:19)
[2021-10-20] MEDS ORDERED: MAG HYDROX/AL HYDROX/SIMETH 30 ML UNIT-DOSE CUP PO PRN (14:19)
[2021-10-20] MEDS ORDERED: guaiFENesin 200 MG/10 ML 10 ML UNIT-DOSE CUPS PO PRN (14:19)
[2021-10-20] MEDS ORDERED: ACETAMINOPHEN 325 MG TABLET (FP) PO PRN (14:19)
[2021-10-20] MEDS ORDERED: P-EPHED 60MG/TRIPROLIDI 2.5MG TABLET PO PRN (14:19)
[2021-10-20] MEDS ORDERED: MAGNESIUM CITRATE 300 ML BOTTLE PO PRN (14:19)
[2021-10-20] MEDS ORDERED: ALBUTEROL SO4 HFA INHALER IH PRN (14:25)
[2021-10-20] MEDS: BUDESONIDE/FORMETEROL FUMARATE 160/4.5 mcg INHALER IH SCH (21:17)
[2021-10-20] MEDS: THIAMINE HCL 100 MG TABLET (FP) PO SCH (21:17)
[2021-10-20] MEDS: DOCUSATE SODIUM 100 MG CAPSULE (FP) PO SCH (21:17)
[2021-10-20] MEDS: MELATONIN 5 MG TABLETS PO SCH (21:18)
[2021-10-20] MEDS: IBUPROFEN 400 MG TABLET (FP) PO PRN (21:20)
[2021-10-21] MEDS ORDERED: methaDONE HCL 40 MG DISPERSABLE TABLET PO SCH (06:45)
[2021-10-21] MEDS: methaDONE HCL 40 MG DISPERSABLE TABLET PO SCH (07:00)
[2021-10-21] MEDS: NICOTINE 7 MG/24 HOURS TOPICAL PATCH TD SCH (09:50)
[2021-10-21] MEDS: PRENATAL VITAMINS W/ FOLIC ACID TABLET (FP) PO SCH (09:50)
[2021-10-21] MEDS: BICTEGRAV/EMTRICIT/TENOFOV (BIKTARVY) 50-200-25 MG TABLET PO SCH (09:50)
[2021-10-21] MEDS: PANTOPRAZOLE 20 MG TABLET PO SCH (09:50)
[2021-10-21] MEDS: NICOTINE 10 MG CARTRIDGE (INHALER) IH PRN (09:51)
[2021-10-21] MEDS: BUDESONIDE/FORMETEROL FUMARATE 160/4.5 mcg INHALER IH SCH ×2 (09:51→21:22)
[2021-10-21 10:08] LABS: URINE APPEARANCE CLEAR; URINE BILIRUBIN NEGATIVE (NEGATIVE); URINE COLOR DK YELLOW; URINE GLUCOSE (UA) NEGATIVE (NEGATIVE); URINE KETONE TRACE (NEGATIVE); URINE LEUK ESTERASE NEGATIVE (NEGATIVE); URINE NITRITE NEGATIVE (NEGATIVE); URINE PROTEIN NEGATIVE (NEGATIVE)
[2021-10-21] MEDS: DOCUSATE SODIUM 100 MG CAPSULE (FP) PO SCH (21:22)
[2021-10-21] MEDS: MELATONIN 5 MG TABLETS PO SCH (21:22)
[2021-10-21] MEDS: THIAMINE HCL 100 MG TABLET (FP) PO SCH (21:22)
[2021-10-21] MEDS: MIRTAZAPINE 15 MG TABLET (FP) PO SCH (21:23)
[2021-10-22] MEDS: methaDONE HCL 40 MG DISPERSABLE TABLET PO SCH (06:20)
[2021-10-22] MEDS: PRENATAL VITAMINS W/ FOLIC ACID TABLET (FP) PO SCH (10:07)
[2021-10-22] MEDS: PANTOPRAZOLE 20 MG TABLET PO SCH (10:08)
[2021-10-22] MEDS: BICTEGRAV/EMTRICIT/TENOFOV (BIKTARVY) 50-200-25 MG TABLET PO SCH (10:08)
[2021-10-22] MEDS: NICOTINE 7 MG/24 HOURS TOPICAL PATCH TD SCH (10:08)
[2021-10-22] MEDS: BUDESONIDE/FORMETEROL FUMARATE 160/4.5 mcg INHALER IH SCH ×2 (10:08→21:11)
[2021-10-22] MEDS: NICOTINE 10 MG CARTRIDGE (INHALER) IH PRN (10:10)
[2021-10-22] MEDS: THIAMINE HCL 100 MG TABLET (FP) PO SCH (21:10)
[2021-10-22] MEDS: MELATONIN 5 MG TABLETS PO SCH (21:10)
[2021-10-22] MEDS: MIRTAZAPINE 15 MG TABLET (FP) PO SCH (21:10)
[2021-10-22] MEDS: DOCUSATE SODIUM 100 MG CAPSULE (FP) PO SCH (21:10)
[2021-10-22] MEDS: IBUPROFEN 400 MG TABLET (FP) PO PRN (21:12)
[2021-10-23] MEDS: methaDONE HCL 40 MG DISPERSABLE TABLET PO SCH (06:15)
[2021-10-23] MEDS: PRENATAL VITAMINS W/ FOLIC ACID TABLET (FP) PO SCH (09:53)
[2021-10-23] MEDS: BICTEGRAV/EMTRICIT/TENOFOV (BIKTARVY) 50-200-25 MG TABLET PO SCH (09:54)
[2021-10-23] MEDS: BUDESONIDE/FORMETEROL FUMARATE 160/4.5 mcg INHALER IH SCH ×2 (09:54→21:17)
[2021-10-23] MEDS: PANTOPRAZOLE 20 MG TABLET PO SCH (09:54)
[2021-10-23] MEDS: NICOTINE 7 MG/24 HOURS TOPICAL PATCH TD SCH (09:54)
[2021-10-23] MEDS: DOCUSATE SODIUM 100 MG CAPSULE (FP) PO SCH (21:16)
[2021-10-23] MEDS: MIRTAZAPINE 15 MG TABLET (FP) PO SCH (21:17)
[2021-10-23] MEDS: THIAMINE HCL 100 MG TABLET (FP) PO SCH (21:17)
[2021-10-23] MEDS: MELATONIN 5 MG TABLETS PO SCH (21:17)
[2021-10-23] MEDS: NICOTINE 10 MG CARTRIDGE (INHALER) IH PRN (21:18)
[2021-10-24] MEDS: methaDONE HCL 40 MG DISPERSABLE TABLET PO SCH (06:23)
[2021-10-24] MEDS: BICTEGRAV/EMTRICIT/TENOFOV (BIKTARVY) 50-200-25 MG TABLET PO SCH (10:10)
[2021-10-24] MEDS: BUDESONIDE/FORMETEROL FUMARATE 160/4.5 mcg INHALER IH SCH ×2 (10:10→21:16)
[2021-10-24] MEDS: PANTOPRAZOLE 20 MG TABLET PO SCH (10:10)
[2021-10-24] MEDS: PRENATAL VITAMINS W/ FOLIC ACID TABLET (FP) PO SCH (10:10)
[2021-10-24] MEDS: NICOTINE 7 MG/24 HOURS TOPICAL PATCH TD SCH (10:11)
[2021-10-24] MEDS: DOCUSATE SODIUM 100 MG CAPSULE (FP) PO SCH (21:14)
[2021-10-24] MEDS: MIRTAZAPINE 15 MG TABLET (FP) PO SCH (21:15)
[2021-10-24] MEDS: THIAMINE HCL 100 MG TABLET (FP) PO SCH (21:15)
[2021-10-24] MEDS: MELATONIN 5 MG TABLETS PO SCH (21:16)
[2021-10-25 00:07] LABS: SARS-CoV-2 NAA Not Detected (Not Detected)
[2021-10-25] MEDS: methaDONE HCL 40 MG DISPERSABLE TABLET PO SCH (06:29)
[2021-10-25] MEDS: BUDESONIDE/FORMETEROL FUMARATE 160/4.5 mcg INHALER IH SCH ×2 (10:39→21:15)
[2021-10-25] MEDS: BICTEGRAV/EMTRICIT/TENOFOV (BIKTARVY) 50-200-25 MG TABLET PO SCH (10:39)
[2021-10-25] MEDS: PANTOPRAZOLE 20 MG TABLET PO SCH (10:39)
[2021-10-25] MEDS: NICOTINE 10 MG CARTRIDGE (INHALER) IH PRN (10:39)
[2021-10-25] MEDS: PRENATAL VITAMINS W/ FOLIC ACID TABLET (FP) PO SCH (10:39)
[2021-10-25] MEDS: NICOTINE 7 MG/24 HOURS TOPICAL PATCH TD SCH (10:39)
[2021-10-25] MEDS: MAGNESIUM HYDROX 2400MG/30ML ORAL SUSPENSION 30 ML CUP PO PRN (18:48)
[2021-10-25] MEDS: THIAMINE HCL 100 MG TABLET (FP) PO SCH (21:15)
[2021-10-25] MEDS: MELATONIN 5 MG TABLETS PO SCH (21:15)
[2021-10-25] MEDS: MIRTAZAPINE 15 MG TABLET (FP) PO SCH (21:15)
[2021-10-25] MEDS: DOCUSATE SODIUM 100 MG CAPSULE (FP) PO SCH (21:15)
[2021-10-26] MEDS: methaDONE HCL 40 MG DISPERSABLE TABLET PO SCH (06:54)
[2021-10-26] MEDS: BICTEGRAV/EMTRICIT/TENOFOV (BIKTARVY) 50-200-25 MG TABLET PO SCH (07:06)
[2021-10-26] MEDS: NICOTINE 7 MG/24 HOURS TOPICAL PATCH TD SCH (10:00)
[2021-10-26] MEDS: PRENATAL VITAMINS W/ FOLIC ACID TABLET (FP) PO SCH (10:00)
[2021-10-26] MEDS: BUDESONIDE/FORMETEROL FUMARATE 160/4.5 mcg INHALER IH SCH ×2 (10:01→21:21)
[2021-10-26] MEDS: NICOTINE 10 MG CARTRIDGE (INHALER) IH PRN (10:01)
[2021-10-26] MEDS: PANTOPRAZOLE 20 MG TABLET PO SCH (10:02)
[2021-10-26] MEDS: MIRTAZAPINE 15 MG TABLET (FP) PO SCH (21:20)
[2021-10-26] MEDS: THIAMINE HCL 100 MG TABLET (FP) PO SCH (21:21)
[2021-10-26] MEDS: MELATONIN 5 MG TABLETS PO SCH (21:21)
[2021-10-26] MEDS: DOCUSATE SODIUM 100 MG CAPSULE (FP) PO SCH (21:21)
[2021-10-27] MEDS: methaDONE HCL 40 MG DISPERSABLE TABLET PO SCH (06:22)
[2021-10-27] MEDS: NICOTINE 7 MG/24 HOURS TOPICAL PATCH TD SCH (10:01)
[2021-10-27] MEDS: PRENATAL VITAMINS W/ FOLIC ACID TABLET (FP) PO SCH (10:01)
[2021-10-27] MEDS: IBUPROFEN 400 MG TABLET (FP) PO PRN (10:02)
[2021-10-27] MEDS: PANTOPRAZOLE 20 MG TABLET PO SCH (10:03)
[2021-10-27] MEDS: BICTEGRAV/EMTRICIT/TENOFOV (BIKTARVY) 50-200-25 MG TABLET PO SCH (10:04)
[2021-10-27] MEDS: BUDESONIDE/FORMETEROL FUMARATE 160/4.5 mcg INHALER IH SCH ×2 (10:04→21:13)
[2021-10-27] MEDS: NICOTINE 10 MG CARTRIDGE (INHALER) IH PRN (10:05)
[2021-10-27] MEDS: MAGNESIUM HYDROX 2400MG/30ML ORAL SUSPENSION 30 ML CUP PO PRN (10:06)
[2021-10-27] MEDS: MIRTAZAPINE 15 MG TABLET (FP) PO SCH (21:11)
[2021-10-27] MEDS: MELATONIN 5 MG TABLETS PO SCH (21:11)
[2021-10-27] MEDS: THIAMINE HCL 100 MG TABLET (FP) PO SCH (21:11)
[2021-10-27] MEDS: DOCUSATE SODIUM 100 MG CAPSULE (FP) PO SCH (21:11)
[2021-10-28] MEDS: PRENATAL VITAMINS W/ FOLIC ACID TABLET (FP) PO SCH (09:46)
[2021-10-28] MEDS: NICOTINE 7 MG/24 HOURS TOPICAL PATCH TD SCH (09:47)
[2021-10-28] MEDS: BICTEGRAV/EMTRICIT/TENOFOV (BIKTARVY) 50-200-25 MG TABLET PO SCH (09:47)
[2021-10-28] MEDS: PANTOPRAZOLE 20 MG TABLET PO SCH (09:47)
[2021-10-28] MEDS: BUDESONIDE/FORMETEROL FUMARATE 160/4.5 mcg INHALER IH SCH ×2 (09:48→21:30)
[2021-10-28] MEDS ORDERED: methaDONE HCL 40 MG DISPERSABLE TABLET PO ONE (10:34)
[2021-10-28] MEDS: NICOTINE 10 MG CARTRIDGE (INHALER) IH PRN (21:27)
[2021-10-28] MEDS: DOCUSATE SODIUM 100 MG CAPSULE (FP) PO SCH (21:29)
[2021-10-28] MEDS: MIRTAZAPINE 15 MG TABLET (FP) PO SCH (21:29)
[2021-10-28] MEDS: THIAMINE HCL 100 MG TABLET (FP) PO SCH (21:29)
[2021-10-28] MEDS: MELATONIN 5 MG TABLETS PO SCH (21:29)
[2021-10-29] MEDS: methaDONE HCL 40 MG DISPERSABLE TABLET PO SCH (06:17)
[2021-10-29] MEDS: NICOTINE 10 MG CARTRIDGE (INHALER) IH PRN ×3 (06:18→21:19)
[2021-10-29] MEDS: BICTEGRAV/EMTRICIT/TENOFOV (BIKTARVY) 50-200-25 MG TABLET PO SCH (07:31)
[2021-10-29] MEDS: PRENATAL VITAMINS W/ FOLIC ACID TABLET (FP) PO SCH (10:09)
[2021-10-29] MEDS: PANTOPRAZOLE 20 MG TABLET PO SCH (10:09)
[2021-10-29] MEDS: NICOTINE 7 MG/24 HOURS TOPICAL PATCH TD SCH (10:09)
[2021-10-29] MEDS: MAGNESIUM HYDROX 2400MG/30ML ORAL SUSPENSION 30 ML CUP PO PRN (10:10)
[2021-10-29] MEDS: BUDESONIDE/FORMETEROL FUMARATE 160/4.5 mcg INHALER IH SCH ×2 (10:10→21:40)
[2021-10-29] MEDS: MIRTAZAPINE 15 MG TABLET (FP) PO SCH (21:16)
[2021-10-29] MEDS: DOCUSATE SODIUM 100 MG CAPSULE (FP) PO SCH (21:16)
[2021-10-29] MEDS: MELATONIN 5 MG TABLETS PO SCH (21:17)
[2021-10-29] MEDS: THIAMINE HCL 100 MG TABLET (FP) PO SCH (21:17)
[2021-10-30] MEDS: methaDONE HCL 40 MG DISPERSABLE TABLET PO SCH (06:28)
[2021-10-30] MEDS: BICTEGRAV/EMTRICIT/TENOFOV (BIKTARVY) 50-200-25 MG TABLET PO SCH (08:00)
[2021-10-30] MEDS: PANTOPRAZOLE 20 MG TABLET PO SCH (10:43)
[2021-10-30] MEDS: PRENATAL VITAMINS W/ FOLIC ACID TABLET (FP) PO SCH (10:43)
[2021-10-30] MEDS: NICOTINE 10 MG CARTRIDGE (INHALER) IH PRN ×2 (10:44→21:27)
[2021-10-30] MEDS: BUDESONIDE/FORMETEROL FUMARATE 160/4.5 mcg INHALER IH SCH ×2 (10:44→21:26)
[2021-10-30] MEDS: NICOTINE 7 MG/24 HOURS TOPICAL PATCH TD SCH (10:44)
[2021-10-30] MEDS: MAGNESIUM HYDROX 2400MG/30ML ORAL SUSPENSION 30 ML CUP PO PRN (10:46)
[2021-10-30] MEDS: DOCUSATE SODIUM 100 MG CAPSULE (FP) PO SCH (21:25)
[2021-10-30] MEDS: MELATONIN 5 MG TABLETS PO SCH (21:26)
[2021-10-30] MEDS: THIAMINE HCL 100 MG TABLET (FP) PO SCH (21:26)
[2021-10-30] MEDS: MIRTAZAPINE 15 MG TABLET (FP) PO SCH (21:26)
[2021-10-31] MEDS: methaDONE HCL 40 MG DISPERSABLE TABLET PO SCH (06:45)
[2021-10-31] MEDS: BICTEGRAV/EMTRICIT/TENOFOV (BIKTARVY) 50-200-25 MG TABLET PO SCH (08:00)
[2021-10-31] MEDS: PANTOPRAZOLE 20 MG TABLET PO SCH (10:12)
[2021-10-31] MEDS: PRENATAL VITAMINS W/ FOLIC ACID TABLET (FP) PO SCH (10:12)
[2021-10-31] MEDS: BUDESONIDE/FORMETEROL FUMARATE 160/4.5 mcg INHALER IH SCH ×2 (10:12→21:24)
[2021-10-31] MEDS: NICOTINE 7 MG/24 HOURS TOPICAL PATCH TD SCH (10:12)
[2021-10-31] MEDS: MAGNESIUM HYDROX 2400MG/30ML ORAL SUSPENSION 30 ML CUP PO PRN (10:13)
[2021-10-31] MEDS: NICOTINE 10 MG CARTRIDGE (INHALER) IH PRN ×2 (10:13→21:26)
[2021-10-31] MEDS: MIRTAZAPINE 15 MG TABLET (FP) PO SCH (21:24)
[2021-10-31] MEDS: MELATONIN 5 MG TABLETS PO SCH (21:24)
[2021-10-31] MEDS: THIAMINE HCL 100 MG TABLET (FP) PO SCH (21:24)
[2021-10-31] MEDS: DOCUSATE SODIUM 100 MG CAPSULE (FP) PO SCH (21:24)
[2021-11-01] MEDS: methaDONE HCL 40 MG DISPERSABLE TABLET PO SCH (06:22)
[2021-11-01] MEDS: BICTEGRAV/EMTRICIT/TENOFOV (BIKTARVY) 50-200-25 MG TABLET PO SCH (07:05)
[2021-11-01] MEDS: PRENATAL VITAMINS W/ FOLIC ACID TABLET (FP) PO SCH (10:00)
[2021-11-01] MEDS: NICOTINE 7 MG/24 HOURS TOPICAL PATCH TD SCH (10:01)
[2021-11-01] MEDS: BUDESONIDE/FORMETEROL FUMARATE 160/4.5 mcg INHALER IH SCH ×2 (10:01→21:26)
[2021-11-01] MEDS: PANTOPRAZOLE 20 MG TABLET PO SCH (10:01)
[2021-11-01] MEDS: MAGNESIUM HYDROX 2400MG/30ML ORAL SUSPENSION 30 ML CUP PO PRN (10:02)
[2021-11-01] MEDS: MELATONIN 5 MG TABLETS PO SCH (21:24)
[2021-11-01] MEDS: DOCUSATE SODIUM 100 MG CAPSULE (FP) PO SCH (21:25)
[2021-11-01] MEDS: MIRTAZAPINE 15 MG TABLET (FP) PO SCH (21:25)
[2021-11-01] MEDS: THIAMINE HCL 100 MG TABLET (FP) PO SCH (21:26)
[2021-11-02] MEDS: methaDONE HCL 40 MG DISPERSABLE TABLET PO SCH (06:13)
[2021-11-02] MEDS: NICOTINE 10 MG CARTRIDGE (INHALER) IH PRN (10:01)
[2021-11-02] MEDS: PANTOPRAZOLE 20 MG TABLET PO SCH (10:01)
[2021-11-02] MEDS: NICOTINE 7 MG/24 HOURS TOPICAL PATCH TD SCH (10:01)
[2021-11-02] MEDS: BICTEGRAV/EMTRICIT/TENOFOV (BIKTARVY) 50-200-25 MG TABLET PO SCH (10:01)
[2021-11-02] MEDS: PRENATAL VITAMINS W/ FOLIC ACID TABLET (FP) PO SCH (10:02)
[2021-11-02] MEDS: BUDESONIDE/FORMETEROL FUMARATE 160/4.5 mcg INHALER IH SCH ×2 (10:02→21:21)
[2021-11-02] MEDS: MIRTAZAPINE 15 MG TABLET (FP) PO SCH (21:20)
[2021-11-02] MEDS: DOCUSATE SODIUM 100 MG CAPSULE (FP) PO SCH (21:20)
[2021-11-02] MEDS: THIAMINE HCL 100 MG TABLET (FP) PO SCH (21:20)
[2021-11-02] MEDS: MELATONIN 5 MG TABLETS PO SCH (21:21)
[2021-11-03] MEDS: methaDONE HCL 40 MG DISPERSABLE TABLET PO SCH (06:28)
[2021-11-03] MEDS: NICOTINE 10 MG CARTRIDGE (INHALER) IH PRN (06:30)
[2021-11-03] MEDS: BICTEGRAV/EMTRICIT/TENOFOV (BIKTARVY) 50-200-25 MG TABLET PO SCH (07:27)
[2021-11-03] MEDS: NICOTINE 7 MG/24 HOURS TOPICAL PATCH TD SCH (09:49)
[2021-11-03] MEDS: PANTOPRAZOLE 20 MG TABLET PO SCH (09:49)
[2021-11-03] MEDS: PRENATAL VITAMINS W/ FOLIC ACID TABLET (FP) PO SCH (09:49)
[2021-11-03] MEDS: BUDESONIDE/FORMETEROL FUMARATE 160/4.5 mcg INHALER IH SCH ×2 (09:50→21:55)
[2021-11-03] MEDS: MELATONIN 5 MG TABLETS PO SCH (21:55)
[2021-11-03] MEDS: THIAMINE HCL 100 MG TABLET (FP) PO SCH (21:55)
[2021-11-03] MEDS: DOCUSATE SODIUM 100 MG CAPSULE (FP) PO SCH (21:55)
[2021-11-03] MEDS: MIRTAZAPINE 15 MG TABLET (FP) PO SCH (21:55)
[2021-11-04] MEDS: methaDONE HCL 40 MG DISPERSABLE TABLET PO SCH (06:06)
[2021-11-04] MEDS: NICOTINE 10 MG CARTRIDGE (INHALER) IH PRN (06:08)
[2021-11-04] MEDS: PANTOPRAZOLE 20 MG TABLET PO SCH (09:50)
[2021-11-04] MEDS: PRENATAL VITAMINS W/ FOLIC ACID TABLET (FP) PO SCH (09:50)
[2021-11-04] MEDS: BICTEGRAV/EMTRICIT/TENOFOV (BIKTARVY) 50-200-25 MG TABLET PO SCH (09:50)
[2021-11-04] MEDS: BUDESONIDE/FORMETEROL FUMARATE 160/4.5 mcg INHALER IH SCH ×2 (09:51→21:38)
[2021-11-04] MEDS: NICOTINE 7 MG/24 HOURS TOPICAL PATCH TD SCH (09:51)
[2021-11-04] MEDS: MIRTAZAPINE 15 MG TABLET (FP) PO SCH (21:35)
[2021-11-04] MEDS: THIAMINE HCL 100 MG TABLET (FP) PO SCH (21:37)
[2021-11-04] MEDS: MELATONIN 5 MG TABLETS PO SCH (21:37)
[2021-11-04] MEDS: DOCUSATE SODIUM 100 MG CAPSULE (FP) PO SCH (21:37)
[2021-11-04] MEDS: MAGNESIUM HYDROX 2400MG/30ML ORAL SUSPENSION 30 ML CUP PO PRN (21:39)
[2021-11-05] MEDS: methaDONE HCL 40 MG DISPERSABLE TABLET PO SCH (06:19)
[2021-11-05] MEDS: BICTEGRAV/EMTRICIT/TENOFOV (BIKTARVY) 50-200-25 MG TABLET PO SCH (10:25)
[2021-11-05] MEDS: PANTOPRAZOLE 20 MG TABLET PO SCH (10:26)
[2021-11-05] MEDS: PRENATAL VITAMINS W/ FOLIC ACID TABLET (FP) PO SCH (10:26)
[2021-11-05] MEDS: BUDESONIDE/FORMETEROL FUMARATE 160/4.5 mcg INHALER IH SCH ×2 (10:26→21:43)
[2021-11-05] MEDS: NICOTINE 7 MG/24 HOURS TOPICAL PATCH TD SCH (10:26)
[2021-11-05] MEDS: DOCUSATE SODIUM 100 MG CAPSULE (FP) PO SCH (21:42)
[2021-11-05] MEDS: MELATONIN 5 MG TABLETS PO SCH (21:43)
[2021-11-05] MEDS: THIAMINE HCL 100 MG TABLET (FP) PO SCH (21:43)
[2021-11-05] MEDS: MIRTAZAPINE 15 MG TABLET (FP) PO SCH (21:43)
[2021-11-06] MEDS: methaDONE HCL 40 MG DISPERSABLE TABLET PO SCH (06:13)
[2021-11-06] MEDS: NICOTINE 10 MG CARTRIDGE (INHALER) IH PRN (06:15)
[2021-11-06] MEDS: BICTEGRAV/EMTRICIT/TENOFOV (BIKTARVY) 50-200-25 MG TABLET PO SCH (07:35)
[2021-11-06] MEDS: NICOTINE 7 MG/24 HOURS TOPICAL PATCH TD SCH (09:57)
[2021-11-06] MEDS: PRENATAL VITAMINS W/ FOLIC ACID TABLET (FP) PO SCH (09:57)
[2021-11-06] MEDS: PANTOPRAZOLE 20 MG TABLET PO SCH (09:58)
[2021-11-06] MEDS: BUDESONIDE/FORMETEROL FUMARATE 160/4.5 mcg INHALER IH SCH ×2 (09:58→21:30)
[2021-11-06] MEDS: MELATONIN 5 MG TABLETS PO SCH (21:28)
[2021-11-06] MEDS: MIRTAZAPINE 15 MG TABLET (FP) PO SCH (21:29)
[2021-11-06] MEDS: DOCUSATE SODIUM 100 MG CAPSULE (FP) PO SCH (21:29)
[2021-11-06] MEDS: THIAMINE HCL 100 MG TABLET (FP) PO SCH (21:30)
[2021-11-07] MEDS: methaDONE HCL 40 MG DISPERSABLE TABLET PO SCH (06:13)
[2021-11-07] MEDS: BICTEGRAV/EMTRICIT/TENOFOV (BIKTARVY) 50-200-25 MG TABLET PO SCH (08:25)
[2021-11-07] MEDS: PRENATAL VITAMINS W/ FOLIC ACID TABLET (FP) PO SCH (10:12)
[2021-11-07] MEDS: BUDESONIDE/FORMETEROL FUMARATE 160/4.5 mcg INHALER IH SCH ×2 (10:12→21:23)
[2021-11-07] MEDS: PANTOPRAZOLE 20 MG TABLET PO SCH (10:12)
[2021-11-07] MEDS: NICOTINE 7 MG/24 HOURS TOPICAL PATCH TD SCH (10:12)
[2021-11-07] MEDS: NICOTINE 10 MG CARTRIDGE (INHALER) IH PRN ×2 (10:13→21:23)
[2021-11-07] MEDS: DOCUSATE SODIUM 100 MG CAPSULE (FP) PO SCH (21:21)
[2021-11-07] MEDS: THIAMINE HCL 100 MG TABLET (FP) PO SCH (21:21)
[2021-11-07] MEDS: MIRTAZAPINE 15 MG TABLET (FP) PO SCH (21:21)
[2021-11-07] MEDS: MELATONIN 5 MG TABLETS PO SCH (21:22)
[2021-11-08] MEDS: methaDONE HCL 40 MG DISPERSABLE TABLET PO SCH (06:17)
[2021-11-08] MEDS: BICTEGRAV/EMTRICIT/TENOFOV (BIKTARVY) 50-200-25 MG TABLET PO SCH (07:05)
[2021-11-08] MEDS: PRENATAL VITAMINS W/ FOLIC ACID TABLET (FP) PO SCH (09:57)
[2021-11-08] MEDS: PANTOPRAZOLE 20 MG TABLET PO SCH (09:58)
[2021-11-08] MEDS: NICOTINE 7 MG/24 HOURS TOPICAL PATCH TD SCH (09:58)
[2021-11-08] MEDS: BUDESONIDE/FORMETEROL FUMARATE 160/4.5 mcg INHALER IH SCH ×2 (09:58→21:16)
[2021-11-08] MEDS: NICOTINE 10 MG CARTRIDGE (INHALER) IH PRN ×2 (09:58→21:16)
[2021-11-08] MEDS ORDERED: COLLOIDAL OATMEAL 1 BAR EACH TP PRN (14:00)
[2021-11-08] MEDS: THIAMINE HCL 100 MG TABLET (FP) PO SCH (21:16)
[2021-11-08] MEDS: MELATONIN 5 MG TABLETS PO SCH (21:16)
[2021-11-08] MEDS: DOCUSATE SODIUM 100 MG CAPSULE (FP) PO SCH (21:16)
[2021-11-08] MEDS: MIRTAZAPINE 15 MG TABLET (FP) PO SCH (21:16)
[2021-11-09] MEDS: methaDONE HCL 40 MG DISPERSABLE TABLET PO SCH (06:16)
[2021-11-09] MEDS: PRENATAL VITAMINS W/ FOLIC ACID TABLET (FP) PO SCH (10:02)
[2021-11-09] MEDS: BICTEGRAV/EMTRICIT/TENOFOV (BIKTARVY) 50-200-25 MG TABLET PO SCH (10:02)
[2021-11-09] MEDS: PANTOPRAZOLE 20 MG TABLET PO SCH (10:02)
[2021-11-09] MEDS: NICOTINE 10 MG CARTRIDGE (INHALER) IH PRN ×2 (10:03→21:20)
[2021-11-09] MEDS: NICOTINE 7 MG/24 HOURS TOPICAL PATCH TD SCH (10:03)
[2021-11-09] MEDS: BUDESONIDE/FORMETEROL FUMARATE 160/4.5 mcg INHALER IH SCH ×2 (10:03→21:18)
[2021-11-09] MEDS: MELATONIN 5 MG TABLETS PO SCH (21:18)
[2021-11-09] MEDS: THIAMINE HCL 100 MG TABLET (FP) PO SCH (21:18)
[2021-11-09] MEDS: DOCUSATE SODIUM 100 MG CAPSULE (FP) PO SCH (21:18)
[2021-11-09] MEDS: MIRTAZAPINE 15 MG TABLET (FP) PO SCH (21:19)
[2021-11-10] MEDS: methaDONE HCL 40 MG DISPERSABLE TABLET PO SCH (06:14)
[2021-11-10] MEDS: BICTEGRAV/EMTRICIT/TENOFOV (BIKTARVY) 50-200-25 MG TABLET PO SCH (09:00)
[2021-11-10] MEDS: NICOTINE 7 MG/24 HOURS TOPICAL PATCH TD SCH (10:06)
[2021-11-10] MEDS: PRENATAL VITAMINS W/ FOLIC ACID TABLET (FP) PO SCH (10:06)
[2021-11-10] MEDS: BUDESONIDE/FORMETEROL FUMARATE 160/4.5 mcg INHALER IH SCH ×2 (10:08→21:15)
[2021-11-10] MEDS: NICOTINE 10 MG CARTRIDGE (INHALER) IH PRN ×2 (10:08→21:17)
[2021-11-10] MEDS: PANTOPRAZOLE 20 MG TABLET PO SCH (10:08)
[2021-11-10] MEDS: MELATONIN 5 MG TABLETS PO SCH (21:13)
[2021-11-10] MEDS: DOCUSATE SODIUM 100 MG CAPSULE (FP) PO SCH (21:13)
[2021-11-10] MEDS: MIRTAZAPINE 15 MG TABLET (FP) PO SCH (21:14)
[2021-11-10] MEDS: THIAMINE HCL 100 MG TABLET (FP) PO SCH (21:14)
[2021-11-10] MEDS: IBUPROFEN 400 MG TABLET (FP) PO PRN (21:16)
[2021-11-11] MEDS: methaDONE HCL 40 MG DISPERSABLE TABLET PO SCH (05:53)
[2021-11-11] MEDS: BICTEGRAV/EMTRICIT/TENOFOV (BIKTARVY) 50-200-25 MG TABLET PO SCH (07:12)
[2021-11-11] MEDS: PRENATAL VITAMINS W/ FOLIC ACID TABLET (FP) PO SCH (10:05)
[2021-11-11] MEDS: PANTOPRAZOLE 20 MG TABLET PO SCH (10:05)
[2021-11-11] MEDS: BUDESONIDE/FORMETEROL FUMARATE 160/4.5 mcg INHALER IH SCH ×2 (10:05→21:27)
[2021-11-11] MEDS: NICOTINE 7 MG/24 HOURS TOPICAL PATCH TD SCH (10:05)
[2021-11-11] MEDS: NICOTINE 10 MG CARTRIDGE (INHALER) IH PRN (10:05)
[2021-11-11] MEDS: MAGNESIUM HYDROX 2400MG/30ML ORAL SUSPENSION 30 ML CUP PO PRN (10:07)
[2021-11-11] MEDS: THIAMINE HCL 100 MG TABLET (FP) PO SCH (21:26)
[2021-11-11] MEDS: DOCUSATE SODIUM 100 MG CAPSULE (FP) PO SCH (21:26)
[2021-11-11] MEDS: MIRTAZAPINE 15 MG TABLET (FP) PO SCH (21:26)
[2021-11-11] MEDS: MELATONIN 5 MG TABLETS PO SCH (21:27)
[2021-11-12] MEDS: methaDONE HCL 40 MG DISPERSABLE TABLET PO SCH (06:04)
[2021-11-12] MEDS: NICOTINE 10 MG CARTRIDGE (INHALER) IH PRN (10:11)
[2021-11-12] MEDS: PRENATAL VITAMINS W/ FOLIC ACID TABLET (FP) PO SCH (10:11)
[2021-11-12] MEDS: BICTEGRAV/EMTRICIT/TENOFOV (BIKTARVY) 50-200-25 MG TABLET PO SCH (10:12)
[2021-11-12] MEDS: PANTOPRAZOLE 20 MG TABLET PO SCH (10:12)
[2021-11-12] MEDS: NICOTINE 7 MG/24 HOURS TOPICAL PATCH TD SCH (10:12)
[2021-11-12] MEDS: BUDESONIDE/FORMETEROL FUMARATE 160/4.5 mcg INHALER IH SCH ×2 (10:13→22:05)
[2021-11-12] MEDS: MELATONIN 5 MG TABLETS PO SCH (22:05)
[2021-11-12] MEDS: DOCUSATE SODIUM 100 MG CAPSULE (FP) PO SCH (22:05)
[2021-11-12] MEDS: MIRTAZAPINE 15 MG TABLET (FP) PO SCH (22:05)
[2021-11-12] MEDS: THIAMINE HCL 100 MG TABLET (FP) PO SCH (22:06)
[2021-11-13] MEDS: methaDONE HCL 40 MG DISPERSABLE TABLET PO SCH (06:01)
[2021-11-13] MEDS: BICTEGRAV/EMTRICIT/TENOFOV (BIKTARVY) 50-200-25 MG TABLET PO SCH (07:02)
[2021-11-13] MEDS: NICOTINE 10 MG CARTRIDGE (INHALER) IH PRN ×2 (10:06→21:13)
[2021-11-13] MEDS: PANTOPRAZOLE 20 MG TABLET PO SCH (10:06)
[2021-11-13] MEDS: NICOTINE 7 MG/24 HOURS TOPICAL PATCH TD SCH (10:06)
[2021-11-13] MEDS: PRENATAL VITAMINS W/ FOLIC ACID TABLET (FP) PO SCH (10:06)
[2021-11-13] MEDS: BUDESONIDE/FORMETEROL FUMARATE 160/4.5 mcg INHALER IH SCH ×2 (10:07→21:15)
[2021-11-13] MEDS: MIRTAZAPINE 15 MG TABLET (FP) PO SCH (21:14)
[2021-11-13] MEDS: DOCUSATE SODIUM 100 MG CAPSULE (FP) PO SCH (21:14)
[2021-11-13] MEDS: MELATONIN 5 MG TABLETS PO SCH (21:14)
[2021-11-13] MEDS: THIAMINE HCL 100 MG TABLET (FP) PO SCH (21:15)
[2021-11-13] MEDS: IBUPROFEN 400 MG TABLET (FP) PO PRN (21:16)
[2021-11-14] MEDS: methaDONE HCL 40 MG DISPERSABLE TABLET PO SCH (06:11)
[2021-11-14] MEDS: NICOTINE 10 MG CARTRIDGE (INHALER) IH PRN ×2 (06:14→21:20)
[2021-11-14] MEDS: PRENATAL VITAMINS W/ FOLIC ACID TABLET (FP) PO SCH (09:46)
[2021-11-14] MEDS: NICOTINE 7 MG/24 HOURS TOPICAL PATCH TD SCH (09:46)
[2021-11-14] MEDS: BICTEGRAV/EMTRICIT/TENOFOV (BIKTARVY) 50-200-25 MG TABLET PO SCH (09:46)
[2021-11-14] MEDS: PANTOPRAZOLE 20 MG TABLET PO SCH (09:47)
[2021-11-14] MEDS: BUDESONIDE/FORMETEROL FUMARATE 160/4.5 mcg INHALER IH SCH ×2 (09:47→21:19)
[2021-11-14] MEDS: THIAMINE HCL 100 MG TABLET (FP) PO SCH (21:18)
[2021-11-14] MEDS: DOCUSATE SODIUM 100 MG CAPSULE (FP) PO SCH (21:18)
[2021-11-14] MEDS: MELATONIN 5 MG TABLETS PO SCH (21:18)
[2021-11-14] MEDS: MIRTAZAPINE 15 MG TABLET (FP) PO SCH (21:19)
[2021-11-15] MEDS: methaDONE HCL 40 MG DISPERSABLE TABLET PO SCH (06:01)
[2021-11-15] MEDS: BICTEGRAV/EMTRICIT/TENOFOV (BIKTARVY) 50-200-25 MG TABLET PO SCH (07:31)
[2021-11-15] MEDS: NICOTINE 7 MG/24 HOURS TOPICAL PATCH TD SCH (09:47)
[2021-11-15] MEDS: PRENATAL VITAMINS W/ FOLIC ACID TABLET (FP) PO SCH (09:47)
[2021-11-15] MEDS: BUDESONIDE/FORMETEROL FUMARATE 160/4.5 mcg INHALER IH SCH ×2 (09:47→21:16)
[2021-11-15] MEDS: PANTOPRAZOLE 20 MG TABLET PO SCH (09:47)
[2021-11-15] MEDS: DOCUSATE SODIUM 100 MG CAPSULE (FP) PO SCH (21:16)
[2021-11-15] MEDS: MELATONIN 5 MG TABLETS PO SCH (21:16)
[2021-11-15] MEDS: THIAMINE HCL 100 MG TABLET (FP) PO SCH (21:16)
[2021-11-15] MEDS: MIRTAZAPINE 15 MG TABLET (FP) PO SCH (21:16)
[2021-11-15] MEDS: NICOTINE 10 MG CARTRIDGE (INHALER) IH PRN (21:17)
[2021-11-16] MEDS: methaDONE HCL 40 MG DISPERSABLE TABLET PO SCH (05:35)
[2021-11-16 07:01] VITALS: BP 112/73; PULSE 74; TEMP 97.5
[2021-11-16] MEDS: BICTEGRAV/EMTRICIT/TENOFOV (BIKTARVY) 50-200-25 MG TABLET PO SCH (07:14)
[2021-11-16] MEDS: PRENATAL VITAMINS W/ FOLIC ACID TABLET (FP) PO SCH (10:08)
[2021-11-16] MEDS: PANTOPRAZOLE 20 MG TABLET PO SCH (10:08)
[2021-11-16] MEDS: BUDESONIDE/FORMETEROL FUMARATE 160/4.5 mcg INHALER IH SCH (10:09)
[2021-11-16] MEDS: NICOTINE 10 MG CARTRIDGE (INHALER) IH PRN (10:09)
[2021-11-16] MEDS: NICOTINE 7 MG/24 HOURS TOPICAL PATCH TD SCH (10:09)
== END 2021-11-16 13:20 | disposition home or self-care (01) | DRG 772 ==
LOC: YASAS 13:07 → Y5N 13:08
PROVIDERS: ADMIT Allergy & Immunology; ATTEND Allergy & Immunology
PROC: HZ42ZZZ Group Counseling for Substance Abuse Treatment, Cognitive-Behavioral (ICD-10-PCS; principal; 2021-10-20)
DX: F10.20 Alcohol dependence, uncomplicated (principal); F11.20 Opioid dependence, uncomplicated; F13.20 Sedative, hypnotic or anxiolytic dependence, uncomplicated; F17.210 Nicotine dependence, cigarettes, uncomplicated; F41.9 Anxiety disorder, unspecified; F32.A Depression, unspecified; Z21 Asymptomatic human immunodeficiency virus [HIV] infection status; J43.9 Emphysema, unspecified; K21.9 Gastro-esophageal reflux disease without esophagitis; K59.01 Slow transit constipation; K64.9 Unspecified hemorrhoids; B18.2 Chronic viral hepatitis C
CPT/HCPCS: 36415; 81003; 84450; 84460; C9803-CS; U0003; U0005

== ENCOUNTER 2022-12-27 16:57 | Inpatient (IN) | payer OTHER ==
[2022-12-27 17:39] VITALS: BMI 32.3
[2022-12-27] MEDS ORDERED: BISMUTH SUBSALICYLATE 524 MG/30 ML PO PRN (20:04)
[2022-12-27] MEDS ORDERED: LOPERAMIDE HCL 2 MG CAPSULE PO PRN (20:04)
[2022-12-27] MEDS ORDERED: MAG HYDROX/AL HYDROX/SIMETH 30 ML UNIT-DOSE CUP PO PRN (20:04)
[2022-12-27] MEDS ORDERED: DICYCLOMINE HCL 10 MG CAPSULE PO PRN (20:04)
[2022-12-27] MEDS ORDERED: IBUPROFEN 600 MG TABLET (FP) PO PRN (20:04)
[2022-12-27] MEDS ORDERED: NALOXONE HCL 0.4 MG/ML VIAL IM PRN (20:04)
[2022-12-27] MEDS ORDERED: BENZONATATE 200 MG CAPSULE PO PRN (20:04)
[2022-12-27] MEDS ORDERED: MAGNESIUM HYDROX 2400MG/30ML ORAL SUSPENSION 30 ML CUP PO PRN (20:04)
[2022-12-27] MEDS ORDERED: diazePAM 5 MG TABLET PO PRN (20:04)
[2022-12-27] MEDS ORDERED: ACETAMINOPHEN 325 MG TABLET (FP) PO PRN (20:04)
[2022-12-27] MEDS ORDERED: NALOXONE HCL (KLOXXADO) 8 MG SPRAY NS PRN (20:04)
[2022-12-27] MEDS ORDERED: ONDANSETRON *ODT* 4 MG TABLET SL PRN (20:04)
[2022-12-27] MEDS ORDERED: guaiFENesin 600 MG TABLET.ER (FP) PO PRN (20:04)
[2022-12-27] MEDS ORDERED: BENZOCAINE/MENTHOL (CHLORASEPTIC ) LOZENGE MM PRN (20:04)
[2022-12-27] MEDS ORDERED: IBUPROFEN 400 MG TABLET (FP) PO PRN (20:04)
[2022-12-27] MEDS ORDERED: POLYETHYLENE GLYCOL (HEALTHYLAX) 3350 17 GM PACKET PO PRN (20:04)
[2022-12-27] MEDS: MELATONIN 5 MG TABLETS PO SCH (22:27)
[2022-12-27] MEDS: diazePAM 5 MG TABLET PO SCH (22:27)
[2022-12-27] MEDS: THIAMINE HCL 100 MG TABLET (FP) PO SCH (22:27)
[2022-12-27] MEDS: METHOCARBAMOL 500 MG TABLET PO PRN (22:27)
[2022-12-27] MEDS: NICOTINE 10 MG CARTRIDGE (INHALER) IH PRN (22:31)
[2022-12-28] MEDS: diazePAM 5 MG TABLET PO SCH ×4 (05:49→22:30)
[2022-12-28] MEDS: PRENATAL VITAMINS W/ FOLIC ACID TABLET (FP) PO SCH (10:12)
[2022-12-28] MEDS: NICOTINE 14 MG/24 HOURS TOPICAL PATCH TD SCH (10:42)
[2022-12-28] MEDS ORDERED: ALBUTEROL SO4 HFA INHALER IH PRN (10:55)
[2022-12-28] MEDS ORDERED: PATIENT'S OWN MEDICATION (NON-FORMULARY) (Dolutegravir Sodium/Lamivudine [Dovato 50-300 Mg PO SCH (11:00)
[2022-12-28] MEDS ORDERED: PATIENT'S OWN MEDICATION (NON-FORMULARY) (Sofosbuvir/Velpatasvir [Sofosbuvir-Velpatasvir 4 PO SCH (11:00)
[2022-12-28] MEDS: PANTOPRAZOLE 20 MG TABLET PO SCH (12:03)
[2022-12-28] MEDS: methaDONE HCL 10 MG TABLET PO SCH (12:03)
[2022-12-28] MEDS: GABAPENTIN 300 MG CAPSULE PO SCH ×2 (12:03→22:33)
[2022-12-28] MEDS: DOLUTEGRAVIR SODIUM 50 MG TABLET (NON-FORMULARY) PO SCH (13:15)
[2022-12-28 13:28] LABS: HEMATOCRIT 39.5 % (35.4-49); MCH 29.4 pg (25.7-33.7); MCHC 32.8 g/dl (32.0-35.9); MEAN CELL VOLUME 89.7 fl (80-96); MEAN PLT VOLUME 10.2 fl (7.5-11.1); PLATELET COUNT 124 10^3/uL (134-434); RDW 14.1 % (11.9-15.9); WHITE BLOOD COUNT 3.9 K/mm3 (4.0-10.0)
[2022-12-28 15:30] LABS: ALBUMIN 3.5 g/dl (3.4-5.0); BILIRUBIN,TOTAL 0.5 mg/dL (0.2-1); BLOOD UREA NITROGEN 16.8 mg/dL (7-18); CALCIUM 9.3 mg/dL (8.5-10.1); CREATININE 0.9 mg/dL (0.55-1.3); POTASSIUM 3.7 mmol/L (3.5-5.1); TOT PROT 7.2 g/dl (6.4-8.2)
[2022-12-28] MEDS: NICOTINE 10 MG CARTRIDGE (INHALER) IH PRN ×2 (17:35→22:34)
[2022-12-28] MEDS: MELATONIN 5 MG TABLETS PO SCH (22:30)
[2022-12-28] MEDS: THIAMINE HCL 100 MG TABLET (FP) PO SCH (22:30)
[2022-12-28] MEDS: METHOCARBAMOL 500 MG TABLET PO PRN (22:30)
[2022-12-29] MEDS: GABAPENTIN 300 MG CAPSULE PO SCH ×3 (05:50→22:13)
[2022-12-29] MEDS: diazePAM 5 MG TABLET PO SCH ×3 (05:50→22:13)
[2022-12-29] MEDS: methaDONE HCL 10 MG TABLET PO SCH (05:51)
[2022-12-29] MEDS: PRENATAL VITAMINS W/ FOLIC ACID TABLET (FP) PO SCH (10:13)
[2022-12-29] MEDS: NICOTINE 10 MG CARTRIDGE (INHALER) IH PRN ×2 (10:13→22:15)
[2022-12-29] MEDS: PANTOPRAZOLE 20 MG TABLET PO SCH (10:13)
[2022-12-29] MEDS: DOLUTEGRAVIR SODIUM 50 MG TABLET (NON-FORMULARY) PO SCH (10:13)
[2022-12-29] MEDS: NICOTINE 14 MG/24 HOURS TOPICAL PATCH TD SCH (10:13)
[2022-12-29] MEDS: MELATONIN 5 MG TABLETS PO SCH (22:12)
[2022-12-29] MEDS: THIAMINE HCL 100 MG TABLET (FP) PO SCH (22:13)
[2022-12-29] MEDS: METHOCARBAMOL 500 MG TABLET PO PRN (22:13)
[2022-12-30] MEDS: diazePAM 5 MG TABLET PO SCH ×2 (05:43→17:49)
[2022-12-30] MEDS: GABAPENTIN 300 MG CAPSULE PO SCH ×3 (05:44→22:19)
[2022-12-30] MEDS: methaDONE HCL 10 MG TABLET PO SCH (05:44)
[2022-12-30] MEDS: DOLUTEGRAVIR SODIUM 50 MG TABLET (NON-FORMULARY) PO SCH (10:26)
[2022-12-30] MEDS: NICOTINE 10 MG CARTRIDGE (INHALER) IH PRN ×2 (10:27→17:51)
[2022-12-30] MEDS: PRENATAL VITAMINS W/ FOLIC ACID TABLET (FP) PO SCH (10:27)
[2022-12-30] MEDS: PANTOPRAZOLE 20 MG TABLET PO SCH (10:27)
[2022-12-30] MEDS: NICOTINE 14 MG/24 HOURS TOPICAL PATCH TD SCH (10:52)
[2022-12-30] MEDS: MELATONIN 5 MG TABLETS PO SCH (22:18)
[2022-12-30] MEDS: THIAMINE HCL 100 MG TABLET (FP) PO SCH (22:18)
[2022-12-30] MEDS: METHOCARBAMOL 500 MG TABLET PO PRN (22:20)
[2022-12-31] MEDS: methaDONE HCL 10 MG TABLET PO SCH (05:37)
[2022-12-31] MEDS: GABAPENTIN 300 MG CAPSULE PO SCH (05:37)
[2022-12-31] MEDS ORDERED: diazePAM 5 MG TABLET PO ONE (06:00)
[2022-12-31 09:47] VITALS: BP 108/76; PULSE 83; RESP 16; TEMP 97.7
[2022-12-31] MEDS: PRENATAL VITAMINS W/ FOLIC ACID TABLET (FP) PO SCH (10:13)
[2022-12-31] MEDS: PANTOPRAZOLE 20 MG TABLET PO SCH (10:13)
[2022-12-31] MEDS: DOLUTEGRAVIR SODIUM 50 MG TABLET (NON-FORMULARY) PO SCH (10:13)
[2022-12-31] MEDS: NICOTINE 14 MG/24 HOURS TOPICAL PATCH TD SCH (10:14)
== END 2022-12-31 11:36 | disposition home or self-care (01) | DRG 773 ==
LOC: YASAS 16:57 → Y3N 21:04
PROVIDERS: ADMIT Allergy & Immunology; ATTEND Surgery
PROC: HZ2ZZZZ Detoxification Services for Substance Abuse Treatment (ICD-10-PCS; principal; 2022-12-26)
DX: F13.230 Sedative, hypnotic or anxiolytic dependence with withdrawal, uncomplicated (principal); F11.20 Opioid dependence, uncomplicated; F10.20 Alcohol dependence, uncomplicated; F14.20 Cocaine dependence, uncomplicated; F17.210 Nicotine dependence, cigarettes, uncomplicated; F41.9 Anxiety disorder, unspecified; Z21 Asymptomatic human immunodeficiency virus [HIV] infection status; J43.9 Emphysema, unspecified; K64.9 Unspecified hemorrhoids; Z86.19 Personal history of other infectious and parasitic diseases; Z28.310 Unvaccinated for COVID-19; Z28.9 Immunization not carried out for unspecified reason
CPT/HCPCS: 36415; 80053; 85027; 86780; 87635

== ENCOUNTER 2023-01-25 10:37 | Inpatient (IN) | payer OTHER ==
[2023-01-25 10:58] VITALS: BMI 32.3
[2023-01-25] MEDS ORDERED: BENZOCAINE/MENTHOL (CHLORASEPTIC ) LOZENGE MM PRN (11:29)
[2023-01-25] MEDS ORDERED: MAG HYDROX/AL HYDROX/SIMETH 30 ML UNIT-DOSE CUP PO PRN (11:29)
[2023-01-25] MEDS ORDERED: IBUPROFEN 600 MG TABLET (FP) PO PRN (11:29)
[2023-01-25] MEDS ORDERED: BENZONATATE 200 MG CAPSULE PO PRN (11:29)
[2023-01-25] MEDS ORDERED: guaiFENesin 600 MG TABLET.ER (FP) PO PRN (11:29)
[2023-01-25] MEDS ORDERED: NALOXONE HCL (KLOXXADO) 8 MG SPRAY NS PRN (11:29)
[2023-01-25] MEDS ORDERED: diazePAM 5 MG TABLET PO PRN (11:29)
[2023-01-25] MEDS ORDERED: ACETAMINOPHEN 325 MG TABLET (FP) PO PRN (11:29)
[2023-01-25] MEDS ORDERED: MAGNESIUM HYDROX 2400MG/30ML ORAL SUSPENSION 30 ML CUP PO PRN (11:29)
[2023-01-25] MEDS ORDERED: BISMUTH SUBSALICYLATE 262 MG/15 ML BTL PO PRN (11:29)
[2023-01-25] MEDS ORDERED: LOPERAMIDE HCL 2 MG CAPSULE PO PRN (11:29)
[2023-01-25] MEDS ORDERED: NICOTINE 10 MG CARTRIDGE (INHALER) IH PRN (11:29)
[2023-01-25] MEDS ORDERED: DICYCLOMINE HCL 10 MG CAPSULE PO PRN (11:29)
[2023-01-25] MEDS ORDERED: IBUPROFEN 400 MG TABLET (FP) PO PRN (11:29)
[2023-01-25] MEDS ORDERED: NALOXONE HCL 0.4 MG/ML VIAL IM PRN (11:29)
[2023-01-25] MEDS ORDERED: hydrOXYzine PAMOATE 25 MG CAPSULE (FP) PO PRN (11:29)
[2023-01-25] MEDS ORDERED: POLYETHYLENE GLYCOL (HEALTHYLAX) 3350 17 GM PACKET PO PRN (11:29)
[2023-01-25] MEDS ORDERED: ONDANSETRON *ODT* 4 MG TABLET SL PRN (11:29)
[2023-01-25] MEDS ORDERED: ALBUTEROL SO4 HFA INHALER IH PRN (11:32)
[2023-01-25] MEDS ORDERED: GABAPENTIN 300 MG CAPSULE PO PRN (11:32)
[2023-01-25] MEDS: PRENATAL VITAMINS W/ FOLIC ACID TABLET (FP) PO SCH (12:24)
[2023-01-25] MEDS: PANTOPRAZOLE 40 MG TABLET PO SCH (12:24)
[2023-01-25 16:12] LABS: HEMATOCRIT 39.6 % (35.4-49); HEMOGLOBIN 13.1 GM/dL (11.7-16.9); MCH 29.8 pg (25.7-33.7); MCHC 33.1 g/dl (32.0-35.9); MEAN CELL VOLUME 90.2 fl (80-96); MEAN PLT VOLUME 10.1 fl (7.5-11.1); PLATELET COUNT 148 10^3/uL (134-434); RBC 4.39 M/mm3 (4.00-5.60); RDW 14.6 % (11.9-15.9); WHITE BLOOD COUNT 6.2 K/mm3 (4.0-10.0)
[2023-01-25 16:19] LABS: POTASSIUM 4.1 mmol/L (3.5-5.1)
[2023-01-25 16:28] LABS: CALCIUM 9.6 mg/dL (8.5-10.1)
[2023-01-25 16:29] LABS: ALBUMIN 3.7 g/dl (3.4-5.0); BLOOD UREA NITROGEN 23.2 mg/dL (7-18)
[2023-01-25 16:32] LABS: CREATININE 0.8 mg/dL (0.55-1.3)
[2023-01-25 16:33] LABS: BILIRUBIN,TOTAL 1.1 mg/dL (0.2-1); TOT PROT 7.8 g/dl (6.4-8.2)
[2023-01-25] MEDS: diazePAM 5 MG TABLET PO SCH ×2 (17:23→22:18)
[2023-01-25] MEDS: NICOTINE POLACRILEX 4 MG GUM BUC PRN ×2 (17:24→22:22)
[2023-01-25] MEDS: METHOCARBAMOL 500 MG TABLET PO PRN (22:18)
[2023-01-25] MEDS: MELATONIN 5 MG TABLETS PO SCH (22:18)
[2023-01-25] MEDS: THIAMINE HCL 100 MG TABLET (FP) PO SCH (22:18)
[2023-01-25] MEDS: MIRTAZAPINE 15 MG TABLET (FP) PO SCH (22:20)
[2023-01-26] MEDS: methaDONE HCL 10 MG TABLET PO SCH (05:21)
[2023-01-26] MEDS: diazePAM 5 MG TABLET PO SCH ×4 (05:22→22:20)
[2023-01-26] MEDS ORDERED: PATIENT'S OWN MEDICATION (NON-FORMULARY) (Dolutegravir Sodium/Lamivudine [Dovato 50-300 Mg PO SCH (10:00)
[2023-01-26] MEDS: METHOCARBAMOL 500 MG TABLET PO PRN (10:14)
[2023-01-26] MEDS: PANTOPRAZOLE 40 MG TABLET PO SCH (10:14)
[2023-01-26] MEDS: PRENATAL VITAMINS W/ FOLIC ACID TABLET (FP) PO SCH (10:14)
[2023-01-26] MEDS: DOLUTEGRAVIR SODIUM 50 MG TABLET (NON-FORMULARY) PO SCH (10:14)
[2023-01-26] MEDS: NICOTINE POLACRILEX 4 MG GUM BUC PRN ×3 (10:16→22:22)
[2023-01-26] MEDS: MELATONIN 5 MG TABLETS PO SCH (22:20)
[2023-01-26] MEDS: THIAMINE HCL 100 MG TABLET (FP) PO SCH (22:20)
[2023-01-26] MEDS: MIRTAZAPINE 15 MG TABLET (FP) PO SCH (22:21)
[2023-01-27] MEDS: methaDONE HCL 10 MG TABLET PO SCH (05:33)
[2023-01-27] MEDS: diazePAM 5 MG TABLET PO SCH ×3 (05:33→22:25)
[2023-01-27] MEDS: PRENATAL VITAMINS W/ FOLIC ACID TABLET (FP) PO SCH (10:19)
[2023-01-27] MEDS: PANTOPRAZOLE 40 MG TABLET PO SCH (10:19)
[2023-01-27] MEDS: DOLUTEGRAVIR SODIUM 50 MG TABLET (NON-FORMULARY) PO SCH (10:21)
[2023-01-27] MEDS: NICOTINE POLACRILEX 4 MG GUM BUC PRN ×2 (13:16→22:27)
[2023-01-27] MEDS: MIRTAZAPINE 15 MG TABLET (FP) PO SCH (22:24)
[2023-01-27] MEDS: THIAMINE HCL 100 MG TABLET (FP) PO SCH (22:25)
[2023-01-27] MEDS: MELATONIN 5 MG TABLETS PO SCH (22:26)
[2023-01-28] MEDS: diazePAM 5 MG TABLET PO SCH ×2 (05:52→17:17)
[2023-01-28] MEDS: methaDONE HCL 10 MG TABLET PO SCH (05:53)
[2023-01-28] MEDS: PANTOPRAZOLE 40 MG TABLET PO SCH (10:25)
[2023-01-28] MEDS: PRENATAL VITAMINS W/ FOLIC ACID TABLET (FP) PO SCH (10:25)
[2023-01-28] MEDS: DOLUTEGRAVIR SODIUM 50 MG TABLET (NON-FORMULARY) PO SCH (10:25)
[2023-01-28] MEDS: NICOTINE POLACRILEX 4 MG GUM BUC PRN ×3 (10:27→22:16)
[2023-01-28 20:37] VITALS: RESP 18
[2023-01-28] MEDS: THIAMINE HCL 100 MG TABLET (FP) PO SCH (22:15)
[2023-01-28] MEDS: MELATONIN 5 MG TABLETS PO SCH (22:15)
[2023-01-28] MEDS: MIRTAZAPINE 15 MG TABLET (FP) PO SCH (22:15)
[2023-01-29] MEDS: methaDONE HCL 10 MG TABLET PO SCH (05:22)
[2023-01-29] MEDS ORDERED: diazePAM 5 MG TABLET PO ONE (06:00)
[2023-01-29 09:47] VITALS: BP 133/83; PULSE 79; TEMP 96.9
[2023-01-29] MEDS: PANTOPRAZOLE 40 MG TABLET PO SCH (10:54)
[2023-01-29] MEDS: DOLUTEGRAVIR SODIUM 50 MG TABLET (NON-FORMULARY) PO SCH (10:54)
[2023-01-29] MEDS: PRENATAL VITAMINS W/ FOLIC ACID TABLET (FP) PO SCH (10:54)
== END 2023-01-29 08:51 | disposition home or self-care (01) | DRG 773 ==
LOC: YASAS 10:37 → Y6N 12:00
PROVIDERS: ADMIT Allergy & Immunology; ATTEND Surgery
PROC: HZ2ZZZZ Detoxification Services for Substance Abuse Treatment (ICD-10-PCS; principal; 2023-01-25)
DX: F13.230 Sedative, hypnotic or anxiolytic dependence with withdrawal, uncomplicated (principal); F14.20 Cocaine dependence, uncomplicated; F11.20 Opioid dependence, uncomplicated; F17.210 Nicotine dependence, cigarettes, uncomplicated; F19.282 Other psychoactive substance dependence with psychoactive substance-induced sleep disorder; Z21 Asymptomatic human immunodeficiency virus [HIV] infection status; J43.9 Emphysema, unspecified; K21.9 Gastro-esophageal reflux disease without esophagitis; Z86.19 Personal history of other infectious and parasitic diseases; Z28.310 Unvaccinated for COVID-19; Z28.9 Immunization not carried out for unspecified reason
CPT/HCPCS: 36415; 80053; 85027; 86780; 87635

== ENCOUNTER 2023-03-01 10:05 | Inpatient (IN) | payer OTHER ==
[2023-03-01 10:51] VITALS: BMI 31.4
[2023-03-01] MEDS ORDERED: guaiFENesin 600 MG TABLET.ER (FP) PO PRN (11:24)
[2023-03-01] MEDS ORDERED: IBUPROFEN 600 MG TABLET (FP) PO PRN (11:24)
[2023-03-01] MEDS ORDERED: NALOXONE HCL (KLOXXADO) 8 MG SPRAY NS PRN (11:24)
[2023-03-01] MEDS ORDERED: MAGNESIUM HYDROX 2400MG/30ML ORAL SUSPENSION 30 ML CUP PO PRN (11:24)
[2023-03-01] MEDS ORDERED: IBUPROFEN 400 MG TABLET (FP) PO PRN (11:24)
[2023-03-01] MEDS ORDERED: LOPERAMIDE HCL 2 MG CAPSULE PO PRN (11:24)
[2023-03-01] MEDS ORDERED: ACETAMINOPHEN 325 MG TABLET (FP) PO PRN (11:24)
[2023-03-01] MEDS ORDERED: NALOXONE HCL 0.4 MG/ML VIAL IM PRN (11:24)
[2023-03-01] MEDS ORDERED: BENZONATATE 200 MG CAPSULE PO PRN (11:24)
[2023-03-01] MEDS ORDERED: BISMUTH SUBSALICYLATE 262 MG/15 ML BTL PO PRN (11:24)
[2023-03-01] MEDS ORDERED: BENZOCAINE/MENTHOL (CHLORASEPTIC ) LOZENGE MM PRN (11:24)
[2023-03-01] MEDS ORDERED: P-EPHED 60MG/TRIPROLIDI 2.5MG TABLET PO PRN (11:24)
[2023-03-01] MEDS ORDERED: DICYCLOMINE HCL 10 MG CAPSULE PO PRN (11:24)
[2023-03-01] MEDS ORDERED: POLYETHYLENE GLYCOL (HEALTHYLAX) 3350 17 GM PACKET PO PRN (11:24)
[2023-03-01] MEDS ORDERED: MAG HYDROX/AL HYDROX/SIMETH 30 ML UNIT-DOSE CUP PO PRN (11:24)
[2023-03-01] MEDS ORDERED: ONDANSETRON *ODT* 4 MG TABLET SL PRN (11:24)
[2023-03-01] MEDS ORDERED: ALBUTEROL SO4 HFA INHALER IH PRN (11:26)
[2023-03-01] MEDS: NICOTINE POLACRILEX 2 MG GUM BUC PRN ×2 (13:25→17:57)
[2023-03-01] MEDS ORDERED: diazePAM 5 MG TABLET PO PRN (17:55)
[2023-03-01] MEDS ORDERED: diazePAM 5 MG TABLET PO ONE (17:55)
[2023-03-01] MEDS: MELATONIN 5 MG TABLETS PO SCH (22:17)
[2023-03-01] MEDS: diazePAM 5 MG TABLET PO SCH (22:18)
[2023-03-01] MEDS: hydrOXYzine PAMOATE 25 MG CAPSULE (FP) PO PRN (22:18)
[2023-03-01] MEDS: THIAMINE HCL 100 MG TABLET (FP) PO SCH (22:18)
[2023-03-01] MEDS: METHOCARBAMOL 500 MG TABLET PO PRN (22:18)
[2023-03-02] MEDS: diazePAM 5 MG TABLET PO SCH ×4 (05:51→22:13)
[2023-03-02] MEDS: NICOTINE POLACRILEX 2 MG GUM BUC PRN ×4 (05:53→22:14)
[2023-03-02] MEDS ORDERED: PATIENT'S OWN MEDICATION (NON-FORMULARY) (Dolutegravir Sodium/Lamivudine [Dovato 50-300 Mg PO SCH (10:00)
[2023-03-02] MEDS: DOLUTEGRAVIR SODIUM 50 MG TABLET (NON-FORMULARY) PO SCH (10:13)
[2023-03-02] MEDS: PANTOPRAZOLE 40 MG TABLET PO SCH (10:14)
[2023-03-02] MEDS: PRENATAL VITAMINS W/ FOLIC ACID TABLET (FP) PO SCH (10:14)
[2023-03-02] MEDS: methaDONE HCL 10 MG TABLET PO SCH (10:40)
[2023-03-02 14:03] LABS: HEMATOCRIT 40.9 % (35.4-49); HEMOGLOBIN 13.7 GM/dL (11.7-16.9); MCH 30.5 pg (25.7-33.7); MCHC 33.5 g/dl (32.0-35.9); MEAN CELL VOLUME 90.9 fl (80-96); MEAN PLT VOLUME 9.7 fl (7.5-11.1); PLATELET COUNT 151 10^3/uL (134-434); RDW 14.1 % (11.9-15.9); WHITE BLOOD COUNT 6.5 K/mm3 (4.0-10.0)
[2023-03-02 14:17] LABS: POTASSIUM 4.1 mmol/L (3.5-5.1)
[2023-03-02 14:29] LABS: BLOOD UREA NITROGEN 24.5 mg/dL (7-18)
[2023-03-02 14:31] LABS: CALCIUM 9.3 mg/dL (8.5-10.1)
[2023-03-02 14:34] LABS: BILIRUBIN,TOTAL 1.1 mg/dL (0.2-1)
[2023-03-02 14:39] LABS: CREATININE 1.1 mg/dL (0.55-1.3); TOT PROT 7.7 g/dl (6.4-8.2)
[2023-03-02] MEDS: MELATONIN 5 MG TABLETS PO SCH (22:12)
[2023-03-02] MEDS: THIAMINE HCL 100 MG TABLET (FP) PO SCH (22:12)
[2023-03-03] MEDS: methaDONE HCL 10 MG TABLET PO SCH (05:21)
[2023-03-03] MEDS: diazePAM 5 MG TABLET PO SCH ×3 (05:21→22:09)
[2023-03-03] MEDS: NICOTINE POLACRILEX 2 MG GUM BUC PRN ×3 (05:23→22:12)
[2023-03-03] MEDS: DOLUTEGRAVIR SODIUM 50 MG TABLET (NON-FORMULARY) PO SCH (10:24)
[2023-03-03] MEDS: PANTOPRAZOLE 40 MG TABLET PO SCH (10:24)
[2023-03-03] MEDS: PRENATAL VITAMINS W/ FOLIC ACID TABLET (FP) PO SCH (10:24)
[2023-03-03] MEDS: METHOCARBAMOL 500 MG TABLET PO PRN (22:09)
[2023-03-03] MEDS: THIAMINE HCL 100 MG TABLET (FP) PO SCH (22:09)
[2023-03-03] MEDS: hydrOXYzine PAMOATE 25 MG CAPSULE (FP) PO PRN (22:09)
[2023-03-03] MEDS: MELATONIN 5 MG TABLETS PO SCH (22:09)
[2023-03-04] MEDS: methaDONE HCL 10 MG TABLET PO SCH (05:51)
[2023-03-04] MEDS: diazePAM 5 MG TABLET PO SCH ×2 (05:52→17:35)
[2023-03-04] MEDS: DOLUTEGRAVIR SODIUM 50 MG TABLET (NON-FORMULARY) PO SCH (10:15)
[2023-03-04] MEDS: PANTOPRAZOLE 40 MG TABLET PO SCH (10:16)
[2023-03-04] MEDS: PRENATAL VITAMINS W/ FOLIC ACID TABLET (FP) PO SCH (10:16)
[2023-03-04] MEDS: NICOTINE POLACRILEX 2 MG GUM BUC PRN ×3 (10:17→22:21)
[2023-03-04] MEDS: THIAMINE HCL 100 MG TABLET (FP) PO SCH (22:20)
[2023-03-04] MEDS: MELATONIN 5 MG TABLETS PO SCH (22:20)
[2023-03-04] MEDS: hydrOXYzine PAMOATE 25 MG CAPSULE (FP) PO PRN (22:20)
[2023-03-04] MEDS: METHOCARBAMOL 500 MG TABLET PO PRN (22:20)
[2023-03-05] MEDS: methaDONE HCL 10 MG TABLET PO SCH (05:28)
[2023-03-05] MEDS: NICOTINE POLACRILEX 2 MG GUM BUC PRN (05:31)
[2023-03-05] MEDS ORDERED: diazePAM 5 MG TABLET PO ONE (06:00)
[2023-03-05 06:42] VITALS: RESP 16
[2023-03-05] MEDS: PANTOPRAZOLE 40 MG TABLET PO SCH (09:39)
[2023-03-05] MEDS: PRENATAL VITAMINS W/ FOLIC ACID TABLET (FP) PO SCH (09:39)
[2023-03-05] MEDS: DOLUTEGRAVIR SODIUM 50 MG TABLET (NON-FORMULARY) PO SCH (09:39)
[2023-03-05 12:38] VITALS: BP 136/85; PULSE 84; TEMP 97.6
== END 2023-03-05 09:42 | disposition home or self-care (01) | DRG 773 ==
LOC: YASAS 10:05 → Y3N 12:01
PROVIDERS: ADMIT Allergy & Immunology; ATTEND Allergy & Immunology
PROC: HZ2ZZZZ Detoxification Services for Substance Abuse Treatment (ICD-10-PCS; principal; 2023-03-01)
DX: F13.230 Sedative, hypnotic or anxiolytic dependence with withdrawal, uncomplicated (principal); F11.20 Opioid dependence, uncomplicated; F14.20 Cocaine dependence, uncomplicated; F17.210 Nicotine dependence, cigarettes, uncomplicated; F34.1 Dysthymic disorder; F41.9 Anxiety disorder, unspecified; Z21 Asymptomatic human immunodeficiency virus [HIV] infection status; J43.9 Emphysema, unspecified; J45.909 Unspecified asthma, uncomplicated; K21.9 Gastro-esophageal reflux disease without esophagitis; Z86.19 Personal history of other infectious and parasitic diseases; Z28.310 Unvaccinated for COVID-19; Z28.9 Immunization not carried out for unspecified reason
CPT/HCPCS: 36415; 80053; 85027; 86780; 87635; 87811

== ENCOUNTER 2024-04-19 16:26 | Inpatient (IN) | payer OTHER ==
[2024-04-19 17:08] VITALS: BMI 34.0
[2024-04-19] MEDS ORDERED: POLYETHYLENE GLYCOL (HEALTHYLAX) 3350 17 GM PACKET PO PRN (18:01)
[2024-04-19] MEDS ORDERED: P-EPHED 60MG/TRIPROLIDI 2.5MG TABLET PO PRN (18:01)
[2024-04-19] MEDS ORDERED: IBUPROFEN 400 MG TABLET (FP) PO PRN (18:01)
[2024-04-19] MEDS ORDERED: BENZOCAINE/MENTHOL (CHLORASEPTIC ) LOZENGE MM PRN (18:01)
[2024-04-19] MEDS ORDERED: BISMUTH SUBSALICYLATE 524 MG/30 ML PO PRN (18:01)
[2024-04-19] MEDS ORDERED: ONDANSETRON *ODT* 4 MG TABLET SL PRN (18:01)
[2024-04-19] MEDS ORDERED: ACETAMINOPHEN 325 MG TABLET (FP) PO PRN (18:01)
[2024-04-19] MEDS ORDERED: BENZONATATE 200 MG CAPSULE PO PRN (18:01)
[2024-04-19] MEDS ORDERED: MAGNESIUM HYDROX 2400MG/30ML ORAL SUSPENSION 30 ML CUP PO PRN (18:01)
[2024-04-19] MEDS ORDERED: DICYCLOMINE HCL 10 MG CAPSULE PO PRN (18:01)
[2024-04-19] MEDS ORDERED: NICOTINE POLACRILEX 2 MG LOZENGE BC PRN (18:01)
[2024-04-19] MEDS ORDERED: MAG HYDROX/AL HYDROX/SIMETH 30 ML UNIT-DOSE CUP PO PRN (18:01)
[2024-04-19] MEDS ORDERED: guaiFENesin 600 MG TABLET.ER (FP) PO PRN (18:01)
[2024-04-19] MEDS ORDERED: NALOXONE (NARCAN) HCL 4 MG/0.1 ML SPRAY NS PRN (18:01)
[2024-04-19] MEDS: hydrOXYzine PAMOATE 25 MG CAPSULE (FP) PO PRN (21:57)
[2024-04-19] MEDS: MELATONIN 5 MG TABLETS PO SCH (21:57)
[2024-04-19] MEDS: THIAMINE 100 MG TABLET PO SCH (21:57)
[2024-04-19] MEDS ORDERED: ALBUTEROL SO4 HFA INHALER IH PRN (22:22)
[2024-04-20] MEDS: methaDONE HCL 10 MG TABLET PO SCH (09:26)
[2024-04-20] MEDS: PRENATAL VITAMINS W/ FOLIC ACID TABLET (FP) PO SCH (09:26)
[2024-04-20] MEDS: PANTOPRAZOLE 40 MG TABLET PO SCH (09:26)
[2024-04-20] MEDS: diazePAM 5 MG TABLET PO SCH (10:24)
[2024-04-20] MEDS: NALOXONE (NYS OPIOID OVERDOSE PROGRAM) 4 MG/0.1 ML SPRAY NS ONE (12:57)
[2024-04-20] MEDS ORDERED: PATIENT'S OWN MEDICATION (NON-FORMULARY) (Dolutegravir Sodium/Lamivudine [Dovato 50-300 Mg PO SCH (13:15)
[2024-04-20 13:23] LABS: POTASSIUM 3.5 mmol/L (3.5-5.1)
[2024-04-20 13:26] LABS: ALBUMIN 3.3 g/dl (3.4-5.0)
[2024-04-20 13:28] LABS: BLOOD UREA NITROGEN 23.3 mg/dL (7-18); CALCIUM 8.5 mg/dL (8.5-10.1)
[2024-04-20 13:29] LABS: CREATININE 0.9 mg/dL (0.55-1.3); HEMATOCRIT 36.4 % (35.4-49); HEMOGLOBIN 12.6 GM/dL (11.7-16.9); MCH 31.5 pg (25.7-33.7); MCHC 34.6 g/dl (32.0-35.9); MEAN CELL VOLUME 91.1 fl (80-96); MEAN PLT VOLUME 9.7 fl (7.5-11.1); PLATELET COUNT 102 10^3/uL (134-434); RDW 14.1 % (11.9-15.9); WHITE BLOOD COUNT 5.6 K/mm3 (4.0-10.0)
[2024-04-20 13:31] LABS: TOT PROT 6.4 g/dl (6.4-8.2)
[2024-04-20] MEDS: DOLUTEGRAVIR SODIUM 50 MG TABLET (NON-FORMULARY) PO ONE (13:44)
[2024-04-20] MEDS: diazePAM 5 MG TABLET PO PRN (13:44)
[2024-04-20] MEDS ORDERED: NALOXONE (NYS OPIOID OVERDOSE PROGRAM) 4 MG/0.1 ML SPRAY NS PRN (14:30)
[2024-04-20 15:08] LABS: BILIRUBIN,TOTAL 0.6 mg/dL (0.2-1)
[2024-04-20] MEDS: NICOTINE POLACRILEX 2 MG GUM BUC PRN (17:31)
[2024-04-20] MEDS: DOCUSATE SODIUM 100 MG CAPSULE (FP) PO SCH (22:01)
[2024-04-20] MEDS: MIRTAZAPINE 15 MG TABLET (FP) PO SCH (22:02)
[2024-04-21] MEDS: METHOCARBAMOL 500 MG TABLET PO PRN (05:36)
[2024-04-21] MEDS: IBUPROFEN 600 MG TABLET (FP) PO PRN (05:36)
[2024-04-21] MEDS: DOLUTEGRAVIR SODIUM 50 MG TABLET (NON-FORMULARY) PO SCH (08:10)
[2024-04-21] MEDS: LOPERAMIDE HCL 2 MG CAPSULE PO PRN (19:29)
[2024-04-22] MEDS: diazePAM 5 MG TABLET PO SCH (05:42)
[2024-04-22] MEDS: NICOTINE POLACRILEX 2 MG GUM BUC PRN (09:51)
[2024-04-23] MEDS: diazePAM 5 MG TABLET PO SCH (05:32)
[2024-04-24] MEDS: diazePAM 5 MG TABLET PO ONE (05:32)
[2024-04-24 05:56] VITALS: RESP 16
[2024-04-24 11:46] VITALS: BP 137/82; PULSE 80; TEMP 97.7
== END 2024-04-24 11:17 | disposition home or self-care (01) | DRG 773 ==
LOC: YASAS 16:26 → Y3N 18:19
PROVIDERS: ADMIT Allergy & Immunology; ATTEND Surgery
PROC: HZ2ZZZZ Detoxification Services for Substance Abuse Treatment (ICD-10-PCS; principal; 2024-04-19)
DX: F10.230 Alcohol dependence with withdrawal, uncomplicated (principal); F11.20 Opioid dependence, uncomplicated; F14.20 Cocaine dependence, uncomplicated; F13.20 Sedative, hypnotic or anxiolytic dependence, uncomplicated; F17.210 Nicotine dependence, cigarettes, uncomplicated; F41.9 Anxiety disorder, unspecified; Z21 Asymptomatic human immunodeficiency virus [HIV] infection status; G47.00 Insomnia, unspecified; J43.9 Emphysema, unspecified; K21.9 Gastro-esophageal reflux disease without esophagitis; Z86.19 Personal history of other infectious and parasitic diseases; Z79.899 Other long term (current) drug therapy
CPT/HCPCS: 36415; 80053; 80305; 80307; 85027; 86780; 93005; 93010

== ENCOUNTER 2024-12-13 11:55 | Inpatient (IN) | payer OTHER ==
[2024-12-13 12:19] VITALS: BMI 32.8
[2024-12-13] MEDS ORDERED: BENZONATATE 200 MG CAPSULE PO PRN (12:59)
[2024-12-13] MEDS ORDERED: LOPERAMIDE HCL 2 MG CAPSULE PO PRN (12:59)
[2024-12-13] MEDS ORDERED: ONDANSETRON *ODT* 4 MG TABLET SL PRN (12:59)
[2024-12-13] MEDS ORDERED: methaDONE HCL 10 MG TABLET (FOR DETOX USE ONLY) PO PRN (12:59)
[2024-12-13] MEDS ORDERED: METHOCARBAMOL 500 MG TABLET PO PRN (12:59)
[2024-12-13] MEDS ORDERED: POLYETHYLENE GLYCOL (HEALTHYLAX) 3350 17 GM PACKET PO PRN (12:59)
[2024-12-13] MEDS ORDERED: DICYCLOMINE HCL 10 MG CAPSULE PO PRN (12:59)
[2024-12-13] MEDS ORDERED: MAG HYDROX/AL HYDROX/SIMETH 30 ML UNIT-DOSE CUP PO PRN (12:59)
[2024-12-13] MEDS ORDERED: guaiFENesin 600 MG TABLET.ER (FP) PO PRN (12:59)
[2024-12-13] MEDS ORDERED: BISMUTH SUBSALICYLATE 262 MG/15 ML BTL PO PRN (12:59)
[2024-12-13] MEDS ORDERED: IBUPROFEN 400 MG TABLET (FP) PO PRN (12:59)
[2024-12-13] MEDS ORDERED: MAGNESIUM HYDROX 2400MG/30ML ORAL SUSPENSION 30 ML CUP PO PRN (12:59)
[2024-12-13] MEDS ORDERED: BENZOCAINE/MENTHOL (CHLORASEPTIC ) LOZENGE MM PRN (12:59)
[2024-12-13] MEDS ORDERED: NALOXONE (NARCAN) HCL 4 MG/0.1 ML SPRAY NS PRN (12:59)
[2024-12-13] MEDS ORDERED: ALBUTEROL SO4 HFA INHALER IH PRN (13:02)
[2024-12-13] MEDS ORDERED: cloNIDine HCL 0.1 MG TABLET ONE (14:24)
[2024-12-13] MEDS ORDERED: NICOTINE 14 MG/24 HOURS TOPICAL PATCH TD ONE (14:24)
[2024-12-13] MEDS ORDERED: BUPRENORPHINE/NALOXONE 0.5 MG/0.125 MG FILM ONE (14:25)
[2024-12-13] MEDS ORDERED: PRENATAL VITAMINS W/ FOLIC ACID TABLET (FP) PO ONE (14:25)
[2024-12-13] MEDS: BUPRENORPHINE/NALOXONE 0.5 MG/0.125 MG FILM SL ONE ×2 (14:28→22:12)
[2024-12-13] MEDS: NICOTINE 14 MG/24 HOURS TOPICAL PATCH TD SCH (14:28)
[2024-12-13] MEDS: methaDONE HCL 10 MG TABLET (FOR DETOX USE ONLY) PO ONE (14:29)
[2024-12-13] MEDS: cloNIDine HCL 0.1 MG TABLET PO SCH (14:29)
[2024-12-13] MEDS: PRENATAL VITAMINS W/ FOLIC ACID TABLET (FP) PO SCH (14:29)
[2024-12-13] MEDS: MELATONIN 5 MG TABLETS PO SCH (22:12)
[2024-12-13] MEDS: THIAMINE 100 MG TABLET PO SCH (22:12)
[2024-12-14] MEDS: BUPRENORPHINE/NALOXONE 0.5 MG/0.125 MG FILM SL SCH (09:30)
[2024-12-14] MEDS: PANTOPRAZOLE 40 MG TABLET PO SCH (09:31)
[2024-12-14] MEDS ORDERED: PATIENT'S OWN MEDICATION (NON-FORMULARY) (Dolutegravir Sodium/Lamivudine [Dovato 50-300 Mg PO SCH (10:00)
[2024-12-14] MEDS: DOLUTEGRAVIR SODIUM 50 MG TABLET (NON-FORMULARY) PO SCH (10:33)
[2024-12-14 11:47] LABS: HEMATOCRIT 40.8 % (40.1-51.0); HEMOGLOBIN 13.3 g/dL (13.7-17.5); MCHC 32.6 g/dl (32.3-36.5); MEAN CELL VOLUME 92.9 fl (79.0-92.2); MEAN PLT VOLUME 11.5 fl (9.4-12.4); PLATELET COUNT 123 x10^3/uL (163-337); RDW 13.2 % (12.1-15.9)
[2024-12-14 12:07] LABS: POTASSIUM 4.1 mmol/L (3.5-5.1)
[2024-12-14 12:18] LABS: ALBUMIN 3.4 g/dl (3.4-5.0)
[2024-12-14 12:19] LABS: BLOOD UREA NITROGEN 12.6 mg/dL (7-18)
[2024-12-14 12:20] LABS: CALCIUM 9.8 mg/dL (8.5-10.1)
[2024-12-14 12:21] LABS: CREATININE 0.8 mg/dL (0.55-1.3)
[2024-12-14 12:23] LABS: BILIRUBIN,TOTAL 0.5 mg/dL (0.2-1); TOT PROT 6.5 g/dl (6.4-8.2)
[2024-12-14] MEDS: IBUPROFEN 600 MG TABLET (FP) PO PRN (13:40)
[2024-12-14] MEDS: MIRTAZAPINE 15 MG TABLET (FP) PO SCH (22:10)
[2024-12-15] MEDS: methaDONE HCL 10 MG TABLET (FOR DETOX USE ONLY) PO ONE (10:24)
[2024-12-15] MEDS: BUPRENORPHINE/NALOXONE 2 MG/0.5 MG FILM PACKET SL SCH (10:26)
[2024-12-16] MEDS: BUPRENORPHINE/NALOXONE 4 MG/1 MG FILM PACKET SL SCH (10:04)
[2024-12-17] MEDS ORDERED: BUPRENORPHINE/NALOXONE 8 MG/2 MG FILM PACKET SL SCH (10:00)
[2024-12-17] MEDS ORDERED: methaDONE HCL 10 MG TABLET (FOR DETOX USE ONLY) PO ONE (10:00)
[2024-12-17] MEDS: diazePAM 5 MG TABLET PO PRN (10:16)
[2024-12-17] MEDS: ACETAMINOPHEN 325 MG TABLET (FP) PO PRN (19:46)
[2024-12-17] MEDS: hydrOXYzine PAMOATE 25 MG CAPSULE (FP) PO PRN (22:03)
[2024-12-18 05:47] VITALS: PULSE 63
[2024-12-18 08:49] VITALS: BP 122/80; RESP 18; TEMP 97.5
[2024-12-18] MEDS: methaDONE HCL 40 MG DISPERSABLE TABLET PO ONE (09:19)
[2024-12-18] MEDS: NICOTINE POLACRILEX 2 MG GUM BUC PRN (09:22)
[2024-12-18] MEDS ORDERED: BUPRENORPHINE/NALOXONE 8 MG/2 MG FILM PACKET SL SCH (10:00)
[2024-12-19] MEDS ORDERED: methaDONE HCL 40 MG DISPERSABLE TABLET PO ONE (10:00)
[2024-12-19] MEDS ORDERED: methaDONE 40 MG, methaDONE 10 MG PO ONE (10:00)
== END 2024-12-18 09:34 | disposition home or self-care (01) | DRG 773 ==
LOC: YASAS 11:55 → Y3N 14:25
PROVIDERS: ADMIT Allergy & Immunology; ATTEND Family Medicine Addiction Medicine
PROC: HZ2ZZZZ Detoxification Services for Substance Abuse Treatment (ICD-10-PCS; principal; 2024-12-13)
DX: F11.23 Opioid dependence with withdrawal (principal); F10.230 Alcohol dependence with withdrawal, uncomplicated; F14.10 Cocaine abuse, uncomplicated; F17.210 Nicotine dependence, cigarettes, uncomplicated; F32.A Depression, unspecified; Z21 Asymptomatic human immunodeficiency virus [HIV] infection status; J45.909 Unspecified asthma, uncomplicated; K21.9 Gastro-esophageal reflux disease without esophagitis; B18.2 Chronic viral hepatitis C; Z79.899 Other long term (current) drug therapy
CPT/HCPCS: 36415; 80053; 80305; 80307; 85027; 86780; 93005; 93010